=== PATIENT | female | born 1950 | race Two or more races ===

== ENCOUNTER 2018-06-09 01:31 | Inpatient (IN) | payer MEDICAID, OTHER ==
[~2018-06-09] VITALS: Ht 152.4 cm; Wt 61.5 kg
[~2018-06-09 01:31] MED LIST: CLOP75TA41 PO
[2018-06-09 02:06] LABS: Basophils # (auto) 0.1 uL; Basophils % (auto) 0.6 % (0.0-2.0); Eosinophils # (auto) 0.9 uL; Eosinophils % (auto) 10.2 % (0.0-7.0); Hematocrit 27.9 % (36.0-46.0); Hemoglobin 9.5 g/dL (12.2-16.2); Lymphocytes # (auto) 2.3 uL; Lymphocytes % (auto) 24.6 % (10.0-50.0); Mean Corpuscular Hemoglobin 33.4 pg (28.0-32.0); Mean Corpuscular Hgb Conc. 33.9 g/dL (32.0-36.0); Mean Corpuscular Volume 98.4 fL (80.0-100.0); Monocytes # (auto) 0.4 uL; Monocytes % (auto) 4.2 % (0.0-12.0); Neutrophils # (auto) 5.5 uL; Neutrophils % (auto) 60.4 % (37.0-80.0); Platelet Count (auto) 161 10^3/uL (140-450); Red Blood Cells 2.83 10^6/uL (4.0-5.20); White Blood Cell 9.2 10^3/uL (4.4-10.8)
[2018-06-09 02:17] LABS: INR 0.95 (0.9-1.15); Partial Thromboplastin Time 25.3 sec (23.78-33.04); Prothrombin Time 10.2 sec (9.27-12.13)
[2018-06-09 02:19] LABS: Albumin 3.2 g/dL (3.4-5.0); BUN/Creatinine Ratio 14.1; Calcium 6.8 mg/dL (8.5-10.1); Magnesium 2.3 mg/dL (1.6-2.6); Potassium 3.6 mmol/L (3.5-5.1)
[2018-06-09 02:24] LABS: Bilirubin, Total 0.3 mg/dL (0.2-1.0); Total Protein 7.1 g/dL (6.4-8.2)
[2018-06-09] MEDS ORDERED: FUROSEMIDE 20 MG/2 ML VIAL IV ONE (05:00)
[2018-06-09] MEDS ORDERED: MORPHINE SULFATE 4 MG/ML SYR/VIAL IV PRN (06:30)
[2018-06-09] MEDS ORDERED: ONDANSETRON HCL 4 MG/2 ML VIAL IV PRN (06:30)
[2018-06-09] MEDS ORDERED: DEXTROSE (50%) 50ML SYRG IV PRN (06:30)
[2018-06-09] MEDS: ACCU-CHEK COMFORT CURVE STRIP VI SCH ×4 (07:51→22:24)
[2018-06-09] MEDS: InsuLIN REG 1unit/0.01ml Soln (100units/ml) SC SCH ×4 (07:51→22:00)
[2018-06-09 07:57] LABS: Cholesterol 178 mg/dL (< 200); HDL Cholesterol 69 mg/dL (40-59); LDL Cholesterol 95 mg/dL (< 100); Triglycerides 80 mg/dL (< 150)
[2018-06-09 09:56] LABS: Urine Bacteria NONE SEEN /hpf (None Seen); Urine Blood 1+ /uL (Negative); Urine Specific Gravity 1.008 (1.001-1.035); Urine WBC 3 /hpf (0 - 5)
[2018-06-09] MEDS ORDERED: ENOXAPARIN SOD 40 MG/0.4 ML SYRINGE SC SCH (10:00)
[2018-06-09] MEDS ORDERED: METOPROLOL TARTRATE 25 MG TAB PO SCH (10:00)
[2018-06-09] MEDS: ASPirin-EC 81 mg tab PO SCH (10:05)
[2018-06-09] MEDS: FAMOTIDINE 20 MG TAB PO SCH (10:05)
[2018-06-09] MEDS: METOPROLOL SUCCINATE XL 50 MG TAB PO SCH (10:05)
[2018-06-09 12:45] LABS: Protein, Urine 68.5 mg/dL (0.0-11.9)
--- NOTE | 2018-06-09 14:14 | NUR ---
MS admit from ER MAXI RODRIGUEZ admitted to tele/MS. Patient oriented to EFRAIN CHOW, primary RN, unit, room, bed, and unit policies regarding patient care and visiting hours. Patient weighed by bedscale and encouraged to call if they need something. All questions and concerns addressed, patient verbalized understanding.
[2018-06-09 14:19] LABS: % Iron Saturation 22.2 % (15-50)
[2018-06-09] MEDS: SODIUM BICARBONATE 650 MG TAB PO SCH ×2 (15:06→22:24)
[2018-06-09] MEDS ORDERED: VALS1TAB58 PO (16:06)
[2018-06-09] MEDS ORDERED: HYDR12.56 PO (16:06)
[2018-06-09] MEDS ORDERED: CLOP75TA41 PO (16:06)
[2018-06-09] MEDS ORDERED: ATOR1TAB PO (16:06)
[2018-06-09] MEDS ORDERED: CAPT25TA5 PO (16:06)
[2018-06-09] MEDS ORDERED: AMLO5TAB13 PO (16:06)
[2018-06-09] MEDS ORDERED: BISO5TAB44 PO (16:09)
[2018-06-09 17:19] VITALS: BP 154/72
[2018-06-09] MEDS ORDERED: FUROSEMIDE 20 MG/2 ML VIAL IV SCH (18:00)
--- NOTE | 2018-06-09 19:09 | NUR ---
Opening Shift Note Assumed care of patient, awake and alert. No S/S of distress/SOB or pain. Family is at bedside helping to translate. Instructed on POC and to call for assist PRN, will continue to monitor for changes Q1hr and PRN.
--- NOTE | 2018-06-09 19:22 | NUR ---
Closing note Patient resting in bed, no signs of distress noted.
[2018-06-09 22:00] VITALS: BP 154/81
--- NOTE | 2018-06-09 22:17 | NUR ---
Hospitalist called back. New orders received for anxiety. Will carry out.
[2018-06-09] MEDS: ATORVASTATIN 20 MG TAB PO SCH (22:24)
[2018-06-09] MEDS ORDERED: LORazepam 0.5 MG TAB PO ONE (22:30)
[2018-06-10] VITALS (7 sets, daily range): BP systolic 140–159; BP diastolic 71–94
--- NOTE | 2018-06-10 05:48 | NUR ---
IV insertion IV access obtained, via clean sterile technique by inserting 20 gauge catheter at the side of the Left arm after 2 attempt(s). IV secured properly. No trauma to site. Patient tolerated well.
[2018-06-10] MEDS: SODIUM BICARBONATE 650 MG TAB PO SCH ×3 (06:10→21:44)
[2018-06-10] MEDS: ACCU-CHEK COMFORT CURVE STRIP VI SCH ×4 (06:47→21:44)
[2018-06-10] MEDS: InsuLIN REG 1unit/0.01ml Soln (100units/ml) SC SCH ×4 (06:47→21:45)
[2018-06-10 06:52] LABS: Basophils # (auto) 0.1 uL; Basophils % (auto) 0.7 % (0.0-2.0); Eosinophils # (auto) 0.9 uL; Eosinophils % (auto) 9.7 % (0.0-7.0); Hematocrit 26.7 % (36.0-46.0); Hemoglobin 9.1 g/dL (12.2-16.2); Lymphocytes # (auto) 1.9 uL; Lymphocytes % (auto) 20.8 % (10.0-50.0); Mean Corpuscular Hemoglobin 33.2 pg (28.0-32.0); Mean Corpuscular Volume 97.6 fL (80.0-100.0); Monocytes # (auto) 0.5 uL; Monocytes % (auto) 5.5 % (0.0-12.0); Neutrophils # (auto) 5.7 uL; Neutrophils % (auto) 63.3 % (37.0-80.0); Platelet Count (auto) 138 10^3/uL (140-450); Red Blood Cells 2.74 10^6/uL (4.0-5.20); Red Cell Distribution Width 13.8 % (11.8-14.3); White Blood Cell 9.1 10^3/uL (4.4-10.8)
--- NOTE | 2018-06-10 06:56 | NUR ---
Closing note Patient is resting in bed. No S/S of distress, pain, or SOB. Will endorse care to dayshift RN.
[2018-06-10 07:11] LABS: BUN/Creatinine Ratio 14.5; Calcium 7.6 mg/dL (8.5-10.1); Potassium 3.8 mmol/L (3.5-5.1)
[2018-06-10] MEDS ORDERED: ADENOSINE 42 MG in GIVE UN-DILUTED 0 ML IV STA (08:29)
[2018-06-10 09:19] LABS: Free T4 (Free Thyroxine) 1.07 ng/dL (0.89-1.76); T3 Total 0.52 ng/mL (0.60-1.81)
[2018-06-10] MEDS: FAMOTIDINE 20 MG TAB PO SCH (11:04)
[2018-06-10] MEDS: METOPROLOL SUCCINATE XL 50 MG TAB PO SCH (11:05)
[2018-06-10] MEDS: CLOPIDOGREL BISULFATE 75 MG TAB PO SCH (11:05)
[2018-06-10] MEDS: ASPirin-EC 81 mg tab PO SCH (11:05)
[2018-06-10] MEDS: FUROSEMIDE 20 MG/2 ML VIAL IV SCH (11:05)
[2018-06-10] MEDS: ENOXAPARIN SOD 30 MG/0.3 ML SYRINGE SC SCH (11:06)
[2018-06-10] MEDS: CALCIUM ACETATE 667 MG CAP PO SCH ×2 (12:00→19:03)
[2018-06-10] MEDS: LORazepam 0.5 MG TAB PO PRN (19:03)
--- NOTE | 2018-06-10 19:10 | NUR ---
OPEN SHIFT NOTE PATIENT IS ALERT AND ORIENTED X4, 2L NASAL CANNULA ALSO WORN AT BASELINE. NO COMPLAINTS OF PAIN AT THIS TIME. POC WAS DISCUSSED AND QUESTIONS ANSWERED. BED IS LOCKED IN LOWEST POSITION WITH SIDE RAILS UP X2. CALL LIGHT IS WITHIN REACH. WILL CONTINUE TO ROUND Q1HR AND PRN.
[2018-06-10] MEDS: ATORVASTATIN 20 MG TAB PO SCH (21:44)
[2018-06-11] VITALS (7 sets, daily range): BP systolic 134–151; BP diastolic 64–76
[2018-06-11] MEDS: SODIUM BICARBONATE 650 MG TAB PO SCH ×3 (06:13→22:25)
[2018-06-11] MEDS: ACCU-CHEK COMFORT CURVE STRIP VI SCH ×4 (06:14→22:26)
[2018-06-11] MEDS: InsuLIN REG 1unit/0.01ml Soln (100units/ml) SC SCH ×4 (06:14→22:00)
[2018-06-11 07:14] LABS: Basophils # (auto) 0 uL; Basophils % (auto) 0.8 % (0.0-2.0); Eosinophils # (auto) 0.1 uL; Hematocrit 34.1 % (36.0-46.0); Lymphocytes # (auto) 1.1 uL; Mean Corpuscular Hemoglobin 25.6 pg (28.0-32.0); Monocytes # (auto) 0.6 uL; Neutrophils # (auto) 3.2 uL
[2018-06-11 07:18] LABS: Eosinophils % (auto) 1.7 % (0.0-7.0); Hemoglobin 10.3 g/dL (12.2-16.2); Lymphocytes % (auto) 21.7 % (10.0-50.0); Mean Corpuscular Hgb Conc. 30.3 g/dL (32.0-36.0); Mean Corpuscular Volume 84.4 fL (80.0-100.0); Monocytes % (auto) 12.1 % (0.0-12.0); Neutrophils % (auto) 63.7 % (37.0-80.0); Nucleated Red Blood Cells % 0.4 %; Platelet Count (auto) 131 10^3/uL (140-450); Red Blood Cells 4.03 10^6/uL (4.0-5.20)
[2018-06-11 07:40] LABS: BUN/Creatinine Ratio 22.7; Calcium 8.5 mg/dL (8.5-10.1); Phosphorus 3.9 mg/dL (2.5-4.90)
[2018-06-11] MEDS: ENOXAPARIN SOD 30 MG/0.3 ML SYRINGE SC SCH (08:39)
[2018-06-11] MEDS: FUROSEMIDE 20 MG/2 ML VIAL IV SCH (08:39)
[2018-06-11] MEDS: ASPirin-EC 81 mg tab PO SCH (08:39)
[2018-06-11] MEDS: CLOPIDOGREL BISULFATE 75 MG TAB PO SCH (08:40)
[2018-06-11] MEDS: METOPROLOL SUCCINATE XL 50 MG TAB PO SCH (08:40)
[2018-06-11] MEDS: CALCIUM ACETATE 667 MG CAP PO SCH ×3 (08:40→18:54)
[2018-06-11] MEDS: FAMOTIDINE 20 MG TAB PO SCH (08:40)
[2018-06-11] MEDS ORDERED: ACETYLCYSTEINE ORAL for CIN 20%(200MG/ML) 4ML PO ONE (11:45)
--- NOTE | 2018-06-11 19:15 | NUR ---
OPEN SHIFT NOTE PATIENT IS ALERT AND ORIENTED X4, 2L NASAL CANNULA ALSO WORN AT BASELINE. 20 GAUGE IN THE LEFT AC IS INTACT AND PATENT, 20 GAUGE IN THE LEFT WRIST IS INTACT AND PATENT. NO COMPLAINTS OF PAIN AT THIS TIME. POC WAS DISCUSSED AND QUESTIONS ANSWERED. BED IS LOCKED IN LOWEST POSITION WITH SIDE RAILS UP X2. CALL LIGHT IS WITHIN REACH. WILL CONTINUE TO ROUND Q1HR AND PRN.
[2018-06-11] MEDS: LORazepam 0.5 MG TAB PO PRN (21:03)
[2018-06-11] MEDS: ACETYLCYSTEINE ORAL for CIN 20%(200MG/ML) 4ML PO SCH (22:26)
[2018-06-11] MEDS: ATORVASTATIN 20 MG TAB PO SCH (22:26)
[2018-06-12 05:00] VITALS: BP 148/83
[2018-06-12] MEDS: SODIUM BICARBONATE 650 MG TAB PO SCH ×3 (06:00→22:32)
[2018-06-12] MEDS: ACCU-CHEK COMFORT CURVE STRIP VI SCH ×4 (06:10→22:13)
[2018-06-12] MEDS: InsuLIN REG 1unit/0.01ml Soln (100units/ml) SC SCH ×4 (06:29→22:13)
[2018-06-12 06:55] LABS: Basophils # (auto) 0.1 uL; Basophils % (auto) 0.9 % (0.0-2.0); Eosinophils # (auto) 0.8 uL; Eosinophils % (auto) 13.3 % (0.0-7.0); Hematocrit 27.6 % (36.0-46.0); Hemoglobin 9.4 g/dL (12.2-16.2); Lymphocytes # (auto) 1.2 uL; Lymphocytes % (auto) 20.6 % (10.0-50.0); Mean Corpuscular Hemoglobin 33.1 pg (28.0-32.0); Mean Corpuscular Hgb Conc. 33.9 g/dL (32.0-36.0); Mean Corpuscular Volume 97.8 fL (80.0-100.0); Monocytes # (auto) 0.5 uL; Monocytes % (auto) 7.6 % (0.0-12.0); Neutrophils # (auto) 3.5 uL; Neutrophils % (auto) 57.6 % (37.0-80.0); Platelet Count (auto) 123 10^3/uL (140-450); Red Blood Cells 2.83 10^6/uL (4.0-5.20); Red Cell Distribution Width 13.9 % (11.8-14.3)
[2018-06-12 07:07] LABS: BUN/Creatinine Ratio 13.5; Potassium 3.8 mmol/L (3.5-5.1)
--- NOTE | 2018-06-12 07:40 | NUR ---
OPENING NOTE ASSUMED CARE OF PATIENT. PT IS LAYING ON BED, AWAKE. HOB LOW-FOWLERS. A&O X4. ON 2 LPM/NC. NO SIGNS OF SOB/DISTRESS NOTED. TELE #40, HR 61. SAFETY PRECAUTIONS IN PLACE INCLUDING, BED SET TO LOWEST POSITION/LOCKED. BED SIDE RAILS UP X2. CALL LIGHT WITHIN REACH INSTRUCTED PT TO CALL FOR ASSISTANCE. DISCUSSED POC WITH PT. PT VERBALIZED UNDERSTANDING. WILL CONTINUE TO MONITOR Q 1HR AND PRN.
[2018-06-12] MEDS: CALCIUM ACETATE 667 MG CAP PO SCH ×3 (07:49→17:51)
[2018-06-12 09:00] VITALS: BP 150/74
[2018-06-12] MEDS: ENOXAPARIN SOD 30 MG/0.3 ML SYRINGE SC SCH (10:00)
[2018-06-12] MEDS: METOPROLOL SUCCINATE XL 50 MG TAB PO SCH (10:00)
[2018-06-12] MEDS: FUROSEMIDE 20 MG/2 ML VIAL IV SCH (10:00)
[2018-06-12] MEDS: ASPirin-EC 81 mg tab PO SCH (11:37)
[2018-06-12] MEDS: FAMOTIDINE 20 MG TAB PO SCH (11:37)
[2018-06-12] MEDS: CLOPIDOGREL BISULFATE 75 MG TAB PO SCH (11:37)
[2018-06-12] MEDS: ACETYLCYSTEINE ORAL for CIN 20%(200MG/ML) 4ML PO SCH ×2 (11:38→22:12)
[2018-06-12 12:00] VITALS: BP 152/75
--- NOTE | 2018-06-12 12:30 | NUR ---
PATIENT OFF UNIT VIA BED TO CEO & BOARD DIRECTOR.
--- NOTE | 2018-06-12 12:32 | NUR ---
Nutrition Assessment Notes Please see attached link for complete assessment Est. Needs BW [id number] kcal (25-30 kcal/kgBW), 39-49 gms pro (0.8-1.0 gms/kgBW r/t elev RFT CKD). Will continue to monitor pertinent labs and reassess nutrient needs prn. Addendum: 06/12/18 at [address] Amended: Links added.
[2018-06-12] MEDS ORDERED: LIDOCAINE 2%HCL (LOCAL ANESTH.) INJ 20ML MDV ONE (13:18)
[2018-06-12] MEDS ORDERED: IOHEXOL 350 MG/ML 100ML IJ ONE (13:18)
--- NOTE | 2018-06-12 15:54 | NUR ---
SPOKE TO PITO ROSARIO. SHE STATES IT IS OK TO TAKE PT FOR NEPRHROSTOMY TUBE ON SUNDAY AM DUE TO DIRECTOR MARKET INTELLIGENCE AVAILABILITY. ALSO SPOKE WITH PRIMARY RN CLINTON.
[2018-06-12 16:36] LABS: INR 0.98 (0.9-1.15); Prothrombin Time 10.5 sec (9.27-12.13)
[2018-06-12 17:00] VITALS: BP 154/82
--- NOTE | 2018-06-12 17:04 | NUR ---
Bejarano catheter insertion Patient assessed and determined to be in need of bejarano catheter. Order obtained from MD. Patient educated on catheter and reason for insertion. All questions answered. Bejarano catheter 16 guage Kazakh inserted with clean sterile technique, draining clear pale yellow urine. Patient tolerated well.
--- NOTE | 2018-06-12 19:13 | NUR ---
Pt is an alert and oriented female visiting her family. Pt is from [place] and has been under medical care for her diabletes there. Pt has a daughter and other family members in the area. [employer] loss control consultant , assisting pt/family with emergency medical for stay. Will reassess pt closer to discharge for assistance with followup and medication. Addendum: 06/19/18 at 1915 by ALICE RAMOS Amended: Links added.
--- NOTE | 2018-06-12 19:57 | NUR ---
ENDORSED CARE TO DAVID Putnam RN.
--- NOTE | 2018-06-12 20:15 | NUR ---
Opening Shift Note: A&Ox4, resting in bed. Cameroonian speaking only; currently on 3LO2 via NC, patient states she wears O2 at home but does not know how much PRN; pain 0/10; baseline: ambulates independently without assistive devices; currently SBA without assistive devices. Bed locked in lowest position, side rails up x2, call light within reach, and bed alarm on for patient safety. Skin intact. IV 20 g in left AC IID inserted on 06/09/18 and IV 20 g in left wrist IID inserted on 06/11/18. Verdugo inserted on 06/12/18 per urology for hydronephrosis and strict i/o. POC discussed and questions answered. Patient will be NPO at 0000 for possible LHC with Dr. Huffman. Will continue to round prn.
[2018-06-12 22:00] VITALS: BP 159/81
[2018-06-12] MEDS: ATORVASTATIN 20 MG TAB PO SCH (22:12)
[2018-06-12] MEDS: LORazepam 0.5 MG TAB PO PRN (22:33)
--- NOTE | 2018-06-13 | NUR ---
REGINEO for possible LHC with Dr. Huffman.
--- NOTE | 2018-06-13 00:40 | NUR ---
Consents signed for LHC with Dr. Huffman.
[2018-06-13 05:00] VITALS: BP 154/84
--- NOTE | 2018-06-13 05:10 | NUR ---
WIPED DOWN PATIENT WITH CHB WIPES PER PROTOCOL. ALL LINENS WERE SWAPPED OUT WELL.
[2018-06-13] MEDS: SODIUM BICARBONATE 650 MG TAB PO SCH ×3 (05:57→22:08)
[2018-06-13] MEDS: InsuLIN REG 1unit/0.01ml Soln (100units/ml) SC SCH ×4 (05:57→22:09)
[2018-06-13] MEDS: ACCU-CHEK COMFORT CURVE STRIP VI SCH ×4 (05:58→22:09)
--- NOTE | 2018-06-13 06:00 | NUR ---
HELD PATIENT'S INSULIN OF 2 UNITS WITH BLOOD SUGAR OF 147 SINCE SHE HAS NPO STATUS. HELD HER BICARB PO PILL WELL.
[2018-06-13 06:57] LABS: Basophils # (auto) 0 uL; Basophils % (auto) 0.6 % (0.0-2.0); Eosinophils # (auto) 0.8 uL; Eosinophils % (auto) 12.8 % (0.0-7.0); Hematocrit 26.1 % (36.0-46.0); Lymphocytes # (auto) 1.6 uL; Lymphocytes % (auto) 25.7 % (10.0-50.0); Mean Corpuscular Hemoglobin 33.6 pg (28.0-32.0); Mean Corpuscular Hgb Conc. 34.7 g/dL (32.0-36.0); Mean Corpuscular Volume 96.8 fL (80.0-100.0); Monocytes # (auto) 0.5 uL; Monocytes % (auto) 8.2 % (0.0-12.0); Neutrophils # (auto) 3.3 uL; Neutrophils % (auto) 52.7 % (37.0-80.0); Platelet Count (auto) 109 10^3/uL (140-450); Red Blood Cells 2.69 10^6/uL (4.0-5.20); Red Cell Distribution Width 13.6 % (11.8-14.3); White Blood Cell 6.2 10^3/uL (4.4-10.8)
[2018-06-13 07:12] LABS: BUN/Creatinine Ratio 14.2; Calcium 7.7 mg/dL (8.5-10.1); Potassium 3.7 mmol/L (3.5-5.1)
--- NOTE | 2018-06-13 07:15 | NUR ---
OPENING NOTE ASSUMED CARE OF PATIENT. PT IS LAYING ON BED, AWAKE. HOB LOW-FOWLERS. A&O X4. ON 2 LPM/NC, O2 SATURATION 100%. NO SIGNS OF SOB/DISTRESS NOTED. TELE #40, HR 76. SAFETY PRECAUTIONS IN PLACE INCLUDING, BED SET TO LOWEST POSITION/LOCKED. BED SIDE RAILS UP X2. CALL LIGHT WITHIN REACH INSTRUCTED PT TO CALL FOR ASSISTANCE. DISCUSSED POC WITH PT. PT VERBALIZED UNDERSTANDING. WILL CONTINUE TO MONITOR Q 1HR AND PRN.
[2018-06-13] MEDS: CALCIUM ACETATE 667 MG CAP PO SCH ×3 (08:51→17:45)
[2018-06-13 09:02] VITALS: BP 160/82
[2018-06-13] MEDS: ENOXAPARIN SOD 30 MG/0.3 ML SYRINGE SC SCH (10:54)
[2018-06-13] MEDS: FUROSEMIDE 20 MG/2 ML VIAL IV SCH (10:54)
[2018-06-13] MEDS: METOPROLOL SUCCINATE XL 50 MG TAB PO SCH (10:55)
[2018-06-13] MEDS: FAMOTIDINE 20 MG TAB PO SCH (10:55)
[2018-06-13] MEDS: ASPirin-EC 81 mg tab PO SCH (10:55)
[2018-06-13] MEDS: CLOPIDOGREL BISULFATE 75 MG TAB PO SCH (10:55)
[2018-06-13 13:00] VITALS: BP 152/81
[2018-06-13 17:13] VITALS: BP 163/80
[2018-06-13] MEDS: cloNIDine HCL 0.1 MG TAB PO PRN (18:47)
--- NOTE | 2018-06-13 19:38 | NUR ---
ENDORSED CARE TO JILLIAN SCRUGGS.
--- NOTE | 2018-06-13 19:50 | NUR ---
Opening Shift Note Assumed care of patient, awake and alert. No S/S of distress/SOB or pain. Instructed on POC and to call for assist PRN. Bed in lowest locked position, call light within reach, side rails up x2, fall precautions in place. Will continue to monitor for changes Q1hr and PRN.
[2018-06-13 22:00] VITALS: BP 146/76
[2018-06-13] MEDS: ATORVASTATIN 20 MG TAB PO SCH (22:09)
[2018-06-14 05:00] VITALS: BP 150/71
[2018-06-14] MEDS: SODIUM BICARBONATE 650 MG TAB PO SCH ×3 (06:42→21:38)
[2018-06-14] MEDS: InsuLIN REG 1unit/0.01ml Soln (100units/ml) SC SCH ×4 (06:42→21:38)
[2018-06-14] MEDS: ACCU-CHEK COMFORT CURVE STRIP VI SCH ×4 (06:42→21:38)
--- NOTE | 2018-06-14 07:15 | NUR ---
OPENING NOTE ASSUMED CARE OF PATIENT. PT IS LAYING ON BED, AWAKE. HOB LOW-FOWLERS. A&O X4. ON 2 LPM/NC, O2 SATURATION 99%. NO SIGNS OF SOB/DISTRESS NOTED. TELE #40, HR 67. GIL CATH INTACT, PATENT AND DRAINING STRAW YELLOW URINE TO GRAVITY. SAFETY PRECAUTIONS IN PLACE INCLUDING, BED SET TO LOWEST POSITION/LOCKED. BED SIDE RAILS UP X2. CALL LIGHT WITHIN REACH INSTRUCTED PT TO CALL FOR ASSISTANCE. DISCUSSED POC WITH PT. PT VERBALIZED UNDERSTANDING. WILL CONTINUE TO MONITOR Q 1HR AND PRN.
[2018-06-14] MEDS: CALCIUM ACETATE 667 MG CAP PO SCH ×3 (08:00→17:22)
[2018-06-14] MEDS ORDERED: LIDOCAINE 2%HCL (LOCAL ANESTH.) INJ 20ML MDV ONE (08:33)
[2018-06-14] MEDS ORDERED: IOHEXOL 350 MG/ML 100ML IJ ONE (08:33)
--- NOTE | 2018-06-14 08:41 | NUR ---
PATIENT OFF UNIT VIA BED TO [employer].
[2018-06-14 09:00] VITALS: BP 143/69
[2018-06-14] MEDS ORDERED: fentaNYL CITRATE 100 MCG/2 ML VL ONE (09:02)
[2018-06-14] MEDS ORDERED: MIDAZOLAM HCL 1MG/1ML-2 ML VIAL ONE (09:03)
[2018-06-14] MEDS ORDERED: cefTRIAXone 1GM/50ML D5W 50 ML IV ONE ×2 (09:29→09:45)
[2018-06-14] MEDS: ENOXAPARIN SOD 30 MG/0.3 ML SYRINGE SC SCH (10:00)
[2018-06-14] MEDS: CLOPIDOGREL BISULFATE 75 MG TAB PO SCH (10:00)
--- NOTE | 2018-06-14 10:24 | NUR ---
PATIENT BACK ON UNIT VIA BED FROM PART TIME. PT IS STABLE, ALERT AND ORIENTED. NO SIGNS OF SOB/DISTRESS. DRESSING TO LEFT FLANK CLEAN, DRY AND INTACT. NEPHROSTOMY TUBE DRAINING PINKISH URINE. WILL CONTINUE TO MONITOR.
[2018-06-14] MEDS: FAMOTIDINE 20 MG TAB PO SCH (10:42)
[2018-06-14] MEDS: FUROSEMIDE 20 MG/2 ML VIAL IV SCH (10:42)
[2018-06-14] MEDS: ASPirin-EC 81 mg tab PO SCH (10:42)
[2018-06-14] MEDS: METOPROLOL SUCCINATE XL 50 MG TAB PO SCH (10:43)
[2018-06-14] MEDS: ACETAMINOPHEN 500 MG TAB PO PRN (11:15)
[2018-06-14 13:00] VITALS: BP 121/71
[2018-06-14] MEDS ORDERED: HYDROcodone-ACET 5/325MG TAB PO PRN (13:30)
[2018-06-14 17:00] VITALS: BP 119/70
--- NOTE | 2018-06-14 18:45 | NUR ---
NEPHROSTOMY TUBE: OUTPUT OF 20 ML OF HEMATURIA
--- NOTE | 2018-06-14 19:08 | NUR ---
ENDORSED CARE TO JILLIAN SCRUGGS.
[2018-06-14] MEDS: ATORVASTATIN 20 MG TAB PO SCH (21:38)
[2018-06-14 22:00] VITALS: BP 113/70
--- NOTE | 2018-06-15 05:00 | NUR ---
150 ml output from nephrostomy tube.
[2018-06-15 05:41] VITALS: BP 129/68
[2018-06-15] MEDS: SODIUM BICARBONATE 650 MG TAB PO SCH ×3 (06:13→22:30)
[2018-06-15] MEDS: ACCU-CHEK COMFORT CURVE STRIP VI SCH ×4 (06:13→22:31)
[2018-06-15] MEDS: InsuLIN REG 1unit/0.01ml Soln (100units/ml) SC SCH ×4 (06:14→22:00)
[2018-06-15 06:41] LABS: Calcium 7.8 mg/dL (8.5-10.1)
--- NOTE | 2018-06-15 07:50 | NUR ---
Opening Shift Note Assumed care of patient, awake and alert. No S/S of distress/SOB or pain. Bed at lowest position and call light within reach. Instructed on POC and to call for assist PRN, will continue to monitor for changes Q1hr and PRN.
[2018-06-15 08:00] VITALS: BP 138/70
[2018-06-15 09:00] VITALS: BP 138/70
[2018-06-15] MEDS: CLOPIDOGREL BISULFATE 75 MG TAB PO SCH (09:48)
[2018-06-15] MEDS: ENOXAPARIN SOD 30 MG/0.3 ML SYRINGE SC SCH (09:48)
[2018-06-15] MEDS: FAMOTIDINE 20 MG TAB PO SCH (09:49)
[2018-06-15] MEDS: ASPirin-EC 81 mg tab PO SCH (09:49)
[2018-06-15] MEDS: CALCIUM ACETATE 667 MG CAP PO SCH ×3 (09:49→17:27)
[2018-06-15] MEDS: ACETAMINOPHEN 500 MG TAB PO PRN (09:49)
[2018-06-15] MEDS: METOPROLOL SUCCINATE XL 50 MG TAB PO SCH (09:50)
[2018-06-15] MEDS: FUROSEMIDE 20 MG/2 ML VIAL IV SCH (09:51)
[2018-06-15] MEDS: SODIUM CHLORIDE 0.9% 1,000 ML IV SCH ×2 (12:45→23:31)
[2018-06-15 12:58] VITALS: BP 118/65
--- NOTE | 2018-06-15 13:09 | NUR ---
ASSOCIATE FINANCIAL REPRESENTATIVE DR. Arline MCGILL
[2018-06-15] MEDS: LORazepam 0.5 MG TAB PO PRN (16:35)
[2018-06-15 17:00] VITALS: BP 127/64
--- NOTE | 2018-06-15 18:36 | NUR ---
End of shift note: Patient is comfortably sitting up in bed. On 2L NC, no s/s of distress noted/stated. Bed at lowest position and call light within reach. Family at bedside. Will endorse care to NOC RN.
[2018-06-15 22:00] VITALS: BP 142/75
[2018-06-15] MEDS: ATORVASTATIN 20 MG TAB PO SCH (22:30)
[2018-06-15] MEDS: MORPHINE SULFATE 4 MG/ML SYR/VIAL IV PRN (23:26)
[2018-06-16] VITALS (17 sets, daily range): BP systolic 114–181; BP diastolic 61–117
[2018-06-16] MEDS: NITROGLYCERIN 0.4 MG SL TAB SL PRN ×2 (03:19→11:29)
[2018-06-16] MEDS: SODIUM BICARBONATE 650 MG TAB PO SCH ×3 (06:20→23:42)
[2018-06-16] MEDS: ACCU-CHEK COMFORT CURVE STRIP VI SCH ×4 (06:20→23:51)
[2018-06-16] MEDS: InsuLIN REG 1unit/0.01ml Soln (100units/ml) SC SCH ×4 (06:20→23:55)
[2018-06-16 06:53] LABS: Lymphocytes # (auto) 1.6 uL; Monocytes # (auto) 0.5 uL; Monocytes % (auto) 7.8 % (0.0-12.0); Neutrophils # (auto) 3.9 uL; White Blood Cell 6.8 10^3/uL (4.4-10.8)
[2018-06-16 07:03] LABS: BUN/Creatinine Ratio 11.1; Basophils # (auto) 0.1 uL; Basophils % (auto) 0.7 % (0.0-2.0); Calcium 7.2 mg/dL (8.5-10.1); Eosinophils # (auto) 0.7 uL; Hematocrit 15.5 % (36.0-46.0); Lymphocytes % (auto) 23.2 % (10.0-50.0); Mean Corpuscular Hemoglobin 33.9 pg (28.0-32.0); Mean Corpuscular Hgb Conc. 35.1 g/dL (32.0-36.0); Mean Corpuscular Volume 96.7 fL (80.0-100.0); Neutrophils % (auto) 57.3 % (37.0-80.0); Platelet Count (auto) 84 10^3/uL (140-450); Potassium 3.7 mmol/L (3.5-5.1); Red Cell Distribution Width 13.8 % (11.8-14.3)
[2018-06-16 07:07] LABS: Hemoglobin 5.4 g/dL (12.2-16.2)
--- NOTE | 2018-06-16 07:15 | NUR ---
CRITICAL LAB VALUE PATIENT HAS Hgb OF 5.4. WILL NOTIFY
--- NOTE | 2018-06-16 07:40 | NUR ---
Opening Shift Note Assumed care of patient, sleeping in bed c/o fatigue and dizziness. No S/S SOB or pain. Patient is alert and oriented x4, advised patient to stay in bed and ask for assistance when out of bed. Bed at lowest position and call light within reach. Will continue to monitor. Instructed on POC and to call for assist PRN, will continue to monitor for changes Q1hr and PRN.
[2018-06-16] MEDS: CALCIUM ACETATE 667 MG CAP PO SCH ×3 (08:00→18:00)
[2018-06-16] MEDS: ASPirin-EC 81 mg tab PO SCH (10:00)
[2018-06-16] MEDS: ENOXAPARIN SOD 30 MG/0.3 ML SYRINGE SC SCH (10:00)
[2018-06-16] MEDS: FUROSEMIDE 20 MG/2 ML VIAL IV SCH (10:00)
[2018-06-16] MEDS: CLOPIDOGREL BISULFATE 75 MG TAB PO SCH (10:00)
--- NOTE | 2018-06-16 10:45 | NUR ---
ERROR IN WRISTBAND BB NUMBER PATIENTS WRIST BAND NUMBER IS [id number] BLOOD RECEIVED WRIST BAND NUMBER IS [id number] CALLED AND SPOKE TO TIKI FROM BLOOD BANK TIKI STATES SHE WILL ASK HER BB LEGAL SUMMER INTERN IF THEIR WR# CAN BE EDITED. ERROR MIGHT HAVE OCCURRED DURING SECOND TYPE AND SCREEN. WILL AWAIT TIKI CALL BACK CHARGE Jerry MADE AWARE OF SITUATION
--- NOTE | 2018-06-16 10:49 | NUR ---
BLOOD RETURNED CHARGE Jerry BULLOCK SAYS BLOOD MUST BE RETURNED DUE TO WRISTBAND # ERROR BLOOD RETURNED TO BLOOD BANK
[2018-06-16] MEDS: FAMOTIDINE 20 MG TAB PO SCH (11:27)
[2018-06-16] MEDS: METOPROLOL SUCCINATE XL 50 MG TAB PO SCH (11:28)
--- NOTE | 2018-06-16 12:33 | NUR ---
Nutrition Follow-up Notes Wt.: 57.4 kg as of yesterday. Pt's on oxygen via nasal cannula, asleep, no immediate family member at bedside when rounded this morning. Pt's no signs of distress noted earlier, currently on Consistent Carb Std.: 60 gms/meal, Renal Specific: 60 gms pro, 2 gms Na, Cardiac diet with adequate PO intake aeb 100% ave. consumed meals (x7) in last 3 days. Est. Needs BW [id number] kcal (25-30 kcal/kgBW), 39-49 gms pro (0.8-1.0 gms/kgBW r/t elev RFT CKD). Will continue to monitor pertinent labs and reassess nutrient needs prn. Labs: Gluc 147 H, BUN 60 H, Cr 5.42 H, Ca 7.2 L; Alb 2.7 L Skin: Didier scale 21, low risk, skin intact per pie dough roller. GI: Pt had 1 BM 06/13/18 per pie dough roller. PES: Altered nutrition related lab values r/t current/chronic medical condition aeb elev RFT, mild hypoalb, hyperglycemia, hypocalcemia Will continue to monitor PO intake, skin status, pertinent labs and weight trend. F/u in 3 to 5 days. Rec.: 1.) Continue close supervision during meals. 2.) Refer pt to CDE/RD for further nutrition education and weight monitoring upon discharge. 3.) Continue current plan of care.
--- NOTE | 2018-06-16 12:36 | NUR ---
SUPPLIER QUALITY ENGINEERING MANAGER DR. Amanda MCGILL
--- NOTE | 2018-06-16 14:10 | NUR ---
Patient c/o chest pain 11/16, administered Nitroglycerin SL and completed an EKG. EKG resulted abnormal, signed off by MD on floor. Informed DR. Vincent. Patient on 4L NC , HOB is elevated. Bed at lowest position and call light within reach. Will continue to monitor.
--- NOTE | 2018-06-16 14:55 | NUR ---
Began administering blood . Patient VS are T. 98.4, BP. 118/64, O2. 100%, RR. 20. Will continue to monitor.
--- NOTE | 2018-06-16 15:00 | NUR ---
IV removal Left wrist Iv leaking, IV DC'd with clean sterile technique, catheter fully intact. Pressure dressing applied to site. Patient tolerated well.
[2018-06-16] MEDS: SODIUM CHLORIDE 0.9% 1,000 ML IV SCH ×2 (15:42→18:45)
--- NOTE | 2018-06-16 16:04 | NUR ---
IV removal Left AC IV leaking, IV DC'd with clean sterile technique, catheter fully intact. Pressure dressing applied to site. Patient tolerated well.
--- NOTE | 2018-06-16 16:12 | NUR ---
IV insertion IV access obtained by JILLIAN Light, via clean sterile technique by inserting 22 gauge catheter at Right forearm after 1 attempt. IV secured properly. No trauma to site. Patient tolerated well.
[2018-06-16] MEDS: MORPHINE SULFATE 4 MG/ML SYR/VIAL IV PRN (17:38)
--- NOTE | 2018-06-16 17:38 | NUR ---
BLOOD TRANSFUSION ENDED. VS T. 98.2, PULSE 90, RR 22, O2, 93% BP 125/69.
--- NOTE | 2018-06-16 17:39 | NUR ---
Patient c/o chest pain 9/10 and difficulty breathing, breath sounds are clear and pulse ox is 96%. Will administer Morphine as prescribed by MD. Will obtain ekg stat.
--- NOTE | 2018-06-16 17:42 | NUR ---
OBTAINED EKG, RESULTS ABNORMAL PAGED DR. WAHL , ORDERED CHEST XRAY STAT ORDERS READ BACK AND VERIFIED. WILL CONTINUE TO MONITOR.
[2018-06-16] MEDS ORDERED: PANTOPRAZOLE 40 MG/10 ML VIAL IV ONE (18:30)
--- NOTE | 2018-06-16 19:12 | NUR ---
FIO2 DECREASED TO .80 ON BIPAP. SPO2 98%. NO DISTRESS NOTED. ULTRASOUND IS AT BEDSIDE.
--- NOTE | 2018-06-16 19:40 | NUR ---
Report given to ASSISTANT BANQUET MANAGERJILLIAN Villegas.
--- NOTE | 2018-06-16 20:20 | NUR ---
Received patient from floor Received from floor. Patient on BiPAP at 100% Fi02. Noted to be using accessory muscles, short of breath, hypertensive, and anxious. Pt. Able to talk and is primarily Yakut speaking. HOB elevated to high fowlers position. Attempting to calm patient and provide comfort. PIV x2 intact and patent with no s/s of infiltration or phlebitis noted. Refer to IV spreadsheet for infusion specifics. F/C intact and draining to gravity. No skin issues noted. Neurovascular status intact with palpable distal pulses, skin warm to touch. patient educated about how to use the call light. Bed in lowest position, side rails up, bed brakes set, bed alarm set, call light and side table are within reach.
[2018-06-16 20:49] LABS: Hematocrit 23.9 % (36.0-46.0); Hemoglobin 8.3 g/dL (12.2-16.2)
[2018-06-16 20:56] LABS: INR 0.93 (0.9-1.15)
--- NOTE | 2018-06-16 21:00 | NUR ---
Hospitalist paged paged hospitalist re: respiratory status. Waiting for call back.
--- NOTE | 2018-06-16 21:10 | NUR ---
Hospitalist declan Hospitalist has not returned page yet. Attempted to call hospitalist rogerio re: respiratory status with no success. Waiting for return page.
--- NOTE | 2018-06-16 21:15 | NUR ---
Hospitalist paged 2nd time paged hospitalist again re: respiratory status. Waiting for call back.
[2018-06-16] MEDS ORDERED: ETOMIDATE (2MG/ML) 20ML VIAL IV ONE (21:21)
[2018-06-16] MEDS ORDERED: ROCURONIUM 10MG/ML 10ML VIAL IV ONE (21:21)
[2018-06-16] MEDS ORDERED: SUCCINYLCHOLINE CHLORIDE 20 MG/ML 10ML VIAL IV ONE (21:22)
--- NOTE | 2018-06-16 21:25 | NUR ---
Hospitalist called back Informed hospitalist, REGINE Saucedo of current status of patient (ABG results, respiratory distress and hypertension). She ordered pulmonary consult and intubation. During phone call, rn occupational, Dr. Nicole, was at the nurses station. RN asked Dr. Nicole if he would consult on patient and intubate and he agreed. No additional orders received.
--- NOTE | 2018-06-16 21:30 | NUR ---
Dr. Nicole at bedside Dr. Nicole rounding on patient and preparing to intubate. Multiple RTs, primary RN, and scrap charger at bedside.
--- NOTE | 2018-06-16 21:47 | NUR ---
Intubation Dr. Nicole intubated patient without incident.
[2018-06-16] MEDS ORDERED: PROPOFOL 100 ML IV ONE (21:51)
[2018-06-16] MEDS ORDERED: fentaNYL Drip 2500mCg/250mlNS 250 ML IV ONE (21:51)
[2018-06-16] MEDS: fentaNYL Drip 2500mCg/250mlNS 250 ML IV SCH (21:52)
[2018-06-16] MEDS: PROPOFOL 100 ML IV SCH (21:52)
--- NOTE | 2018-06-16 23:30 | NUR ---
Nasogastric tube insertion Patient educated on need for NG tube. NGT inserted per MD order without incident. Placement verified by aspiration of stomach contents and auscultation.
[2018-06-16] MEDS: ATORVASTATIN 20 MG TAB PO SCH (23:42)
[2018-06-17] VITALS (100 sets, daily range): BP systolic 88–151; BP diastolic 7–95
[2018-06-17] MEDS ORDERED: ETOMIDATE (2MG/ML) 20ML VIAL IV ONE
[2018-06-17] MEDS ORDERED: SUCCINYLCHOLINE CHLORIDE 20 MG/ML 10ML VIAL IV ONE
[2018-06-17 01:26] LABS: Hemoglobin 8.6 g/dL (12.2-16.2)
[2018-06-17 04:34] LABS: Eosinophils # (auto) 0 uL; Hemoglobin 8.1 g/dL (12.2-16.2); Lymphocytes # (auto) 1.4 uL; Mean Corpuscular Volume 96.2 fL (80.0-100.0); Monocytes # (auto) 0.5 uL
[2018-06-17 04:36] LABS: Basophils # (auto) 0 uL; Basophils % (auto) 0.5 % (0.0-2.0); Eosinophils % (auto) 0.1 % (0.0-7.0); Hematocrit 23.1 % (36.0-46.0); Lymphocytes % (auto) 14.6 % (10.0-50.0); Mean Corpuscular Hemoglobin 33.7 pg (28.0-32.0); Neutrophils # (auto) 7.6 uL; Neutrophils % (auto) 79.8 % (37.0-80.0); Platelet Count (auto) 91 10^3/uL (140-450); Red Cell Distribution Width 14.3 % (11.8-14.3); White Blood Cell 9.5 10^3/uL (4.4-10.8)
[2018-06-17] MEDS: SODIUM CHLORIDE 0.9% 1,000 ML IV SCH (04:45)
[2018-06-17 04:49] LABS: Albumin 2.9 g/dL (3.4-5.0); Calcium 7.2 mg/dL (8.5-10.1); Potassium 4.5 mmol/L (3.5-5.1)
[2018-06-17 04:54] LABS: BUN/Creatinine Ratio 11.3; Bilirubin, Total 0.5 mg/dL (0.2-1.0); Total Protein 6.3 g/dL (6.4-8.2)
--- NOTE | 2018-06-17 06:08 | NUR ---
Respiratory note: RECEIVED PATIENT ON V3 V200 VENT ORALLY INTUBATED WITH AN 8.0 ETT SECURED VIA LILLIAM AT THE 24CM MARKING AT THE LIP, AND MECHANICALLY VENTILATED WITH THE CHARTED SETTINGS. SPO2 100%, LUNG SOUNDS CLEAR T/O, NO SECRETIONS WHEN SUCTIONED. SKIN IS WARM/DRY TO THE TOUCH AND IS INTACT NEAR LILLIAM SITE, THERE ARE NO SKIN INTEGRITY ISSUES TO NOTE AT THIS TIME. THERE IS A NGT IN THE RIGHT NARE AND SECURED TO THE ETT, NO EDEMA NOTED THROUGHOUT. AM CXR ASSESSED AND IT SHOWS ETT IN SATISFACTORY POSITION SITTING APPROX 3.8CM ABOVE THE PERCY, NO INDICATION TO ADJUST TUBE. PATIENT IS RESPONSIVE TO TACTILE STIMULI BUT DOES NOT RESPOND TO VERBAL STIMULI, AND IS SEDATED ON PROPOFOL AND FENTANYL DRIPS. SHE IS RESTING COMFORTABLY AND TOLERATING VENT WELL, FIO2 DECREASED TO 40%, JILLIAN PARMAR MADE AWARE OF CHANGE. VENT PLUGGED INTO RED OUTLET AND ALL ALARMS ARE SET AND AUDIBLE. WILL CONTINUE TO ASSESS PATIENT WELL VENTILATOR FUNCTION.
--- NOTE | 2018-06-17 06:20 | NUR ---
Respiratory note: VENT NOT PLUGGED INTO RED OUTLET; RED OUTLETS HAVING POWER ISSUES. RN AWARE, ENGINEERING AWARE, LISA AWARE. VENT PLUGGED INTO REGULAR NEUMANN POWER OUTLET UNTIL ENGINEERING CAN FIX OR PATIENT CAN BE MOVED TO DIFFERENT ROOM.
[2018-06-17] MEDS ORDERED: HEPARIN DRIP/D5W 100UNITS/ML 250 ML IV SCH ×2 (06:32→16:30)
[2018-06-17] MEDS: SODIUM BICARBONATE 650 MG TAB PO SCH ×3 (06:38→21:39)
[2018-06-17] MEDS ORDERED: HEPARIN SODIUM (PORCINE) 5000 UNITS/ML 1ML VIAL IV ONE (06:45)
[2018-06-17] MEDS: InsuLIN REG 1unit/0.01ml Soln (100units/ml) SC SCH ×4 (06:53→21:56)
[2018-06-17] MEDS: ACCU-CHEK COMFORT CURVE STRIP VI SCH ×4 (06:53→21:51)
--- NOTE | 2018-06-17 07:00 | NUR ---
Report from Nelly hernandez.
--- NOTE | 2018-06-17 07:00 | NUR ---
REPORT RECEIVED FROM FROM JILLIAN PARMAR.
--- NOTE | 2018-06-17 07:30 | NUR ---
Report received from JILLIAN Villegas.
--- NOTE | 2018-06-17 07:50 | NUR ---
CALL PLACED TO DR. Amanda MCGILL PER DR. MCGILL HE WANTS TO BE CALLED WITH TROPONIN VALUES. DR. MCGILL WAS MADE AWARE OF THE LAST TWO TROPONIN VALUES. HE WAS ALSO TOLD THAT I CONTACTED DR. ROSAS WITH TROP RESULTS AND ORDERS WERE GIVEN. HE WAS ALSO TOLD THAT PT. WAS INTUBATED YESTERDAY. PER DR. MCGILL, DR. MUHAMMAD WILL SEE THE PATIENT TODAY
[2018-06-17] MEDS: CALCIUM ACETATE 667 MG CAP PO SCH ×3 (08:00→18:00)
[2018-06-17] MEDS: PROPOFOL 100 ML IV SCH ×2 (09:56→14:24)
[2018-06-17] MEDS: METOPROLOL SUCCINATE XL 50 MG TAB PO SCH (10:00)
[2018-06-17] MEDS: FUROSEMIDE 20 MG/2 ML VIAL IV SCH (10:00)
[2018-06-17] MEDS: PANTOPRAZOLE 40 MG/10 ML VIAL IV SCH ×2 (10:00→21:41)
--- NOTE | 2018-06-17 10:30 | NUR ---
Dr. Tyson at bedside- wants a renal scan when patient extubated.
[2018-06-17] MEDS ORDERED: cefTRIAXone 1GM/50ML D5W 50 ML IV ONE (11:30)
[2018-06-17] MEDS ORDERED: BUMETANIDE (0.25 MG/ML) INJ 10ML IV ONE (11:30)
--- NOTE | 2018-06-17 11:45 | NUR ---
Respiratory note: PEEP DECREASED TO [address] CRUZ BEDSIDE ORDER. RN KIMI MITCHELL.
[2018-06-17] MEDS: LINEZOLID 600MG/300ML 300 ML IV SCH (13:00)
--- NOTE | 2018-06-17 13:30 | NUR ---
Zackery Keenan seen patient and the plan is for Lipotripsy when stable.
--- NOTE | 2018-06-17 13:39 | NUR ---
Respiratory note: CALLED TO ROOM OR DESAT TO 80'S POST CENTRAL LINE PLACEMENT. RN KIMI STATED PATIENT HAD VOMITED MULTIPLE TIMES BUT WAS SUCTIONED IMMEDIATELY. FIO2 INCREASED TO 100% AND SPO2 MAINTAINS AT 92%. LUNG SOUNDS REMAIN CLEAR, NO SECRETIONS WHEN SUCTIONED. WILL CONTINUE TO MONITOR PATIENT AND TITRATE FIO2 BACK DOWN INDICATED.
--- NOTE | 2018-06-17 13:50 | NUR ---
Dr. Huffman at bedside- go ahead with dialysis. Plan for future left heart cath after dialysis.
--- NOTE | 2018-06-17 13:57 | NUR ---
Pagechristina Tyson-per Dr. Huffman he wants dialysis started. Addendum: 06/17/18 at 1412 by Martine Harris RN per Dr. Tyson place dialysis catheter. consult Dr. Tavera.
--- NOTE | 2018-06-17 14:00 | NUR ---
Dr. Noel at bedside- new orders. Bedside procedure right thoracentesis-not enough fluids. Patient ordered for surgery for Exlap. -no tube feeding possible obstruction. Addendum: 06/17/18 at 2020 by Martine Harris RN Wrong note.
[2018-06-17] MEDS ORDERED: methylPREDNISolone SOD SUCC 125 MG/2 ML VL IV ONE (14:15)
[2018-06-17] MEDS ORDERED: methylPREDNISolone SOD SUCC 125 MG/2 ML VL ONE (14:15)
[2018-06-17] MEDS: fentaNYL Drip 2500mCg/250mlNS 250 ML IV SCH (14:24)
[2018-06-17 15:17] LABS: INR 1.01 (0.9-1.15); Partial Thromboplastin Time 41.4 sec (23.78-33.04); Prothrombin Time 10.8 sec (9.27-12.13)
--- NOTE | 2018-06-17 15:45 | NUR ---
Right IJ Michele catheter and Right IJ TL catheter placed by Dr. Tavera. Consents signed and patient tolerated procedures.
[2018-06-17] MEDS ORDERED: HEPARIN SODIUM (PORCINE) 5000 UNITS/ML 1ML VIAL ONE (16:10)
[2018-06-17] MEDS ORDERED: HEPARIN SODIUM (PORCINE) 5000 UNITS/ML 1ML VIAL SC ONE ×2 (16:15→16:30)
[2018-06-17] MEDS ORDERED: HEPARIN SODIUM (PORCINE) 5000 UNITS/ML 1ML VIAL XX ONE (16:30)
[2018-06-17] MEDS: methylPREDNISolone SOD SUCC 40 MG/ML VL IV SCH (18:00)
--- NOTE | 2018-06-17 18:30 | NUR ---
Dr Gama at bedside- ordered H&H, CXR and ABG in the morning.
--- NOTE | 2018-06-17 18:30 | NUR ---
Patient to OR -
[2018-06-17] MEDS ORDERED: ONDANSETRON HCL 4 MG/2 ML VIAL IV PRN (19:30)
--- NOTE | 2018-06-17 19:36 | NUR ---
Output- Verdugo = 100 Nephrostomy = 650
--- NOTE | 2018-06-17 19:40 | NUR ---
TEMPERATURE PATIENT TEMP 100.4 AT THIS TIME COOLING MEASURES IN PLACE BLANKETS/SHEETS REMOVED, FAN PLACED IN ROOM AND TURNED ON TO MED LEVEL THERMOSTAT DECREASED TO 67 DEGREES AT THIS TIME WILL CONTINUE TO MONITOR
--- NOTE | 2018-06-17 19:40 | NUR ---
INITIAL CONTACT ASSUMED CARE OF PATIENT PATIENT RECEIVED ON BED INTUBATED AND SEDATED ON FENTANYL AND PROPOFOL, SEE IV SPREAD SHEETS FOR TITRATIONS. PATIENT ALERT AND ORIENTED, TRACKS WITH EYES, NODS HEAD AND SQUEEZES WITH BOTH HANDS. NO S/S OF DISTRESS NOTED AT THIS TIME. VITAL SIGNS WITHIN NORMAL LIMITS. PATIENT DENIES PAIN AT THIS TIME. NOTED F/C IN PLACE AND DRAINING TO GRAVITY. 20 G IV LEFT AC APPEARS TO BE INFILTRATED. NEPHROSTOMY TUBE IN PLACE AND DRAINING TO GRAVITY. HOB AT 45 DEGREES FOR ASPIRATION PRECAUTIONS, VENTILATOR PLUGGED INTO RED OUTLET, AMBU BAG AT BEDSIDE. BED IN LOWEST LOCKED POSITION, SIDE RAILS UP X 2. PATIENT IN FULL VIEW OF NURSES STATION, SAFETY MAINTAINED, WILL CONTINUE TO MONITOR
--- NOTE | 2018-06-17 19:40 | NUR ---
FAMILY AT BEDSIDE PLAN OF CARE DISCUSSED WITH FAMILY ALL QUESTIONS AND CONCERNS WERE ANSWERED
--- NOTE | 2018-06-17 20:16 | NUR ---
Endorsed care to Nelly- patient in OR. Addendum: 06/17/18 at 2020 by Martine Harris RN wrong note.
--- NOTE | 2018-06-17 20:24 | NUR ---
Dr. Manzo at bedside- new orders- EKG, sputum, blood cultures, and echo. Solumedrol also ordered.
--- NOTE | 2018-06-17 20:26 | NUR ---
Endorsed care to JILLIAN Villegas.
[2018-06-17 21:15] LABS: Hemoglobin 7.1 g/dL (12.2-16.2)
[2018-06-17 21:16] LABS: Hematocrit 20.5 % (36.0-46.0)
[2018-06-17] MEDS: ATORVASTATIN 20 MG TAB PO SCH (21:39)
--- NOTE | 2018-06-17 22:42 | NUR ---
CRITICAL VALUE PTT 118.6 HEPARIN HELD FOR ONE HOUR PER PROTOCOL
[2018-06-18] VITALS (92 sets, daily range): BP systolic 98–145; BP diastolic 45–86
[2018-06-18] MEDS: LINEZOLID 600MG/300ML 300 ML IV SCH ×2 (02:15→13:00)
[2018-06-18] MEDS: methylPREDNISolone SOD SUCC 40 MG/ML VL IV SCH ×4 (02:15→18:00)
--- NOTE | 2018-06-18 04:20 | NUR ---
HR 140-170, SINUS, PT. FULLY AWAKE, PROPOFOL OFF AT THIS TIME. DEEP ETT SUCTION DONE AND HR DOWN TO 90'S. PROPOFOL RESTARTED.
--- NOTE | 2018-06-18 06:15 | NUR ---
DIALYSIS NURSE AT BEDSIDE
[2018-06-18 06:33] LABS: Basophils # (auto) 0 uL; Eosinophils # (auto) 0 uL; Hemoglobin 7.4 g/dL (12.2-16.2); Lymphocytes # (auto) 0.3 uL; Monocytes # (auto) 0.2 uL; Neutrophils % (auto) 96.5 % (37.0-80.0); Red Cell Distribution Width 14.3 % (11.8-14.3)
[2018-06-18 06:36] LABS: Basophils % (auto) 0.2 % (0.0-2.0); Hematocrit 21.4 % (36.0-46.0); Mean Corpuscular Hemoglobin 33.6 pg (28.0-32.0); Mean Corpuscular Hgb Conc. 34.4 g/dL (32.0-36.0); Mean Corpuscular Volume 97.8 fL (80.0-100.0); Monocytes % (auto) 1.3 % (0.0-12.0); Neutrophils # (auto) 13.7 uL; Platelet Count (auto) 101 10^3/uL (140-450); Red Blood Cells 2.19 10^6/uL (4.0-5.20); White Blood Cell 14.2 10^3/uL (4.4-10.8)
[2018-06-18 06:45] LABS: Potassium 4.2 mmol/L (3.5-5.1)
[2018-06-18 06:50] LABS: Albumin 2.6 g/dL (3.4-5.0); Calcium 7.1 mg/dL (8.5-10.1)
[2018-06-18 06:55] LABS: Bilirubin, Total 0.5 mg/dL (0.2-1.0); Total Protein 6.1 g/dL (6.4-8.2)
[2018-06-18] MEDS: ACCU-CHEK COMFORT CURVE STRIP VI SCH ×4 (07:19→22:00)
[2018-06-18] MEDS: InsuLIN REG 1unit/0.01ml Soln (100units/ml) SC SCH ×4 (07:26→22:26)
[2018-06-18] MEDS: CALCIUM ACETATE 667 MG CAP PO SCH ×3 (08:00→18:00)
[2018-06-18] MEDS ORDERED: HEPARIN DRIP/D5W 100UNITS/ML 250 ML IV SCH (08:15)
[2018-06-18] MEDS: SODIUM BICARBONATE 650 MG TAB PO SCH ×3 (08:17→22:00)
--- NOTE | 2018-06-18 09:45 | NUR ---
HD COMPLETED: HD completed, per HD nurse Michele catheter is positional and was difficult to use to complete the treatment only 250 mL removed.
[2018-06-18] MEDS: METOPROLOL SUCCINATE XL 50 MG TAB PO SCH (10:00)
[2018-06-18] MEDS: PANTOPRAZOLE 40 MG/10 ML VIAL IV SCH ×2 (11:00→21:56)
[2018-06-18] MEDS: cefTRIAXone 1GM/50ML D5W 50 ML IV SCH (11:00)
--- NOTE | 2018-06-18 11:30 | NUR ---
AT BEDSIDE: Dr. Manzo at bedside, informed him of critical troponin level. Patient on heparin drip, no further order received.
[2018-06-18 11:40] LABS: Basophils # (auto) 0 uL; Eosinophils # (auto) 0 uL; Monocytes # (auto) 0.4 uL; Red Cell Distribution Width 14.2 % (11.8-14.3)
[2018-06-18 11:43] LABS: Basophils % (auto) 0.1 % (0.0-2.0); Hematocrit 19.7 % (36.0-46.0); Lymphocytes # (auto) 0.5 uL; Mean Corpuscular Hemoglobin 33.1 pg (28.0-32.0); Mean Corpuscular Hgb Conc. 33.9 g/dL (32.0-36.0); Mean Corpuscular Volume 97.6 fL (80.0-100.0); Monocytes % (auto) 2.5 % (0.0-12.0); Neutrophils # (auto) 14.1 uL; Neutrophils % (auto) 94.4 % (37.0-80.0); Platelet Count (auto) 95 10^3/uL (140-450); Red Blood Cells 2.02 10^6/uL (4.0-5.20); White Blood Cell 14.9 10^3/uL (4.4-10.8)
[2018-06-18 12:10] LABS: Potassium 3.9 mmol/L (3.5-5.1)
[2018-06-18 12:17] LABS: Albumin 2.5 g/dL (3.4-5.0); BUN/Creatinine Ratio 11.9; Bilirubin, Total 0.5 mg/dL (0.2-1.0); Calcium 7.1 mg/dL (8.5-10.1); Total Protein 5.8 g/dL (6.4-8.2)
[2018-06-18 12:19] LABS: Hemoglobin 6.7 g/dL (12.2-16.2)
--- NOTE | 2018-06-18 15:00 | NUR ---
NOTIFIED OF CRITICAL LAB: REGINE Polo service consultant for hospitalist. Informed him that Dr. Manzo did not return the previous page for reporting of critical lab value. Hbg of 6.7 reported, discussed with REGINE Polo that Dr. Tyson had mentioned during rounds possibility of transfusion reaction and that the patient may be high risk for repeat transfusion. Orders received.
[2018-06-18 15:50] LABS: INR 1.02 (0.9-1.15); Partial Thromboplastin Time 40.4 sec (23.78-33.04); Prothrombin Time 10.9 sec (9.27-12.13)
[2018-06-18] MEDS: HEPARIN DRIP/D5W 100UNITS/ML 250 ML IV SCH (16:30)
--- NOTE | 2018-06-18 20:15 | NUR ---
OPENING SHIFT NOTE Received report from JILLIAN Deleon. Pt resting in bed, intubated, and lightly sedated. Pt follows commands and responds appropriately. See IV spreadsheet and completed physical assessment intervention. Bed locked, in lowest position with top two side rails up, and call light within reach. All alarms on and audible. Will continue to monitor pt.
--- NOTE | 2018-06-18 20:45 | NUR ---
SON AT BEDSIDE Pt's son at bedside. Updated on pt condition and answered all questions. Pt's son verbalized understanding.
[2018-06-18] MEDS ORDERED: EPOETIN ALFA 10,000 UNIT/1 ML VIAL SC ONE (21:00)
--- NOTE | 2018-06-18 21:05 | NUR ---
VISITORS Additional visitors at bedside.
[2018-06-18] MEDS: ATORVASTATIN 20 MG TAB PO SCH (21:57)
[2018-06-18 22:00] LABS: Hematocrit 19.1 % (36.0-46.0)
[2018-06-18 22:06] LABS: Hemoglobin 6.7 g/dL (12.2-16.2)
--- NOTE | 2018-06-18 22:54 | NUR ---
HEPARIN DRIP RATE INCREASED aPTT 42.00 seconds. Heparin drip rate increased by 200 units/hr per protocol and is now running at 1200 units/hr.
--- NOTE | 2018-06-18 22:55 | NUR ---
CRITICAL LAB Hospitalist paged regarding critical lab. Awaiting return phone call.
--- NOTE | 2018-06-18 23:06 | NUR ---
RETURN PHONE CALL FROM HOSPITALIST Received return phone call from REGINE Drummond. Updated on pt condition and notified of critical hemoglobin. No new orders received.
[2018-06-18] MEDS: PROPOFOL 100 ML IV SCH (23:58)
[2018-06-18] MEDS: fentaNYL Drip 2500mCg/250mlNS 250 ML IV SCH (23:58)
[2018-06-19] VITALS (107 sets, daily range): BP systolic 93–132; BP diastolic 50–84
[2018-06-19] MEDS: methylPREDNISolone SOD SUCC 40 MG/ML VL IV SCH ×5 (00:30→21:36)
[2018-06-19] MEDS: LINEZOLID 600MG/300ML 300 ML IV SCH ×2 (00:30→13:00)
--- NOTE | 2018-06-19 04:01 | NUR ---
CRITICAL ABG RESULTS Left v/m for Dr. Gama to return phone call regarding critical ABG results. Awaiting return phone call.
--- NOTE | 2018-06-19 05:03 | NUR ---
RETURN PHONE CALL FROM DR. ORONA Received return phone call from Dr. Orona. Notified of critical ABG results. Telephone orders received and verified via read-back. RT Roxane notified of MD ordered ventilator setting changes.
[2018-06-19] MEDS: SODIUM BICARBONATE 650 MG TAB PO SCH ×3 (05:45→21:37)
[2018-06-19 05:49] LABS: Basophils # (auto) 0 uL; Basophils % (auto) 0.1 % (0.0-2.0); Eosinophils # (auto) 0 uL; Hematocrit 18.6 % (36.0-46.0); Lymphocytes # (auto) 0.5 uL; Monocytes # (auto) 0.3 uL; Nucleated Red Blood Cells % 0.1 %; Platelet Count (auto) 86 10^3/uL (140-450)
[2018-06-19 05:52] LABS: Lymphocytes % (auto) 6.2 % (10.0-50.0); Mean Corpuscular Hgb Conc. 34.8 g/dL (32.0-36.0); Mean Corpuscular Volume 97.6 fL (80.0-100.0); Monocytes % (auto) 3.3 % (0.0-12.0); Neutrophils # (auto) 7.5 uL; Neutrophils % (auto) 90.4 % (37.0-80.0); Red Cell Distribution Width 14.3 % (11.8-14.3); White Blood Cell 8.3 10^3/uL (4.4-10.8)
[2018-06-19 06:11] LABS: Potassium 3.9 mmol/L (3.5-5.1)
[2018-06-19 06:15] LABS: Albumin 2.4 g/dL (3.4-5.0); Calcium 6.8 mg/dL (8.5-10.1)
[2018-06-19 06:16] LABS: INR 1.03 (0.9-1.15)
[2018-06-19 06:18] LABS: Bilirubin, Total 0.6 mg/dL (0.2-1.0); Total Protein 5.5 g/dL (6.4-8.2)
[2018-06-19 06:29] LABS: Hemoglobin 6.5 g/dL (12.2-16.2)
--- NOTE | 2018-06-19 06:30 | NUR ---
BATH/LINEN CHANGE Pt given complete CHG bath. Minimal assistance provided during bath, pt mostly bathed self. Skin integrity assessed for any changes, no changes noted. Linens changed. Pt repositioned for comfort. Pt tolerated well and VSS.
[2018-06-19 06:31] LABS: Partial Thromboplastin Time 81.2 sec (23.78-33.04)
[2018-06-19 06:39] LABS: CRP High Sensitivity 6.95 mg/dL (< 0.3)
[2018-06-19 06:43] LABS: % Iron Saturation 16.5 % (15-50)
--- NOTE | 2018-06-19 06:48 | NUR ---
HEPARIN DRIP RATE DECREASED aPTT 81.20 seconds. Heparin drip rate decreased by 200 units/hr per protocol and is now infusing at 1000 units/hr.
[2018-06-19] MEDS ORDERED: SODIUM CHL 0.9% 1000 ML BAG XX ONE ×2 (07:00)
--- NOTE | 2018-06-19 07:15 | NUR ---
REPORT Report given to JILLIAN Farley. Notified of critical labs. Care endorsed.
--- NOTE | 2018-06-19 07:30 | NUR ---
SBAR report given by JILLIAN Ramirez.
[2018-06-19] MEDS: ACCU-CHEK COMFORT CURVE STRIP VI SCH ×4 (07:44→22:15)
[2018-06-19] MEDS: InsuLIN REG 1unit/0.01ml Soln (100units/ml) SC SCH ×4 (07:47→22:16)
[2018-06-19] MEDS: CALCIUM ACETATE 667 MG CAP PO SCH ×3 (08:00→18:06)
--- NOTE | 2018-06-19 08:00 | NUR ---
Dr. Manzo rounded today- am labs ordered.
--- NOTE | 2018-06-19 08:45 | NUR ---
Patient seen by Dr. Greer- give one unit of PRBC's,
[2018-06-19] MEDS: PROPOFOL 100 ML IV SCH ×2 (09:00→10:44)
[2018-06-19] MEDS: fentaNYL Drip 2500mCg/250mlNS 250 ML IV SCH ×2 (09:00→10:44)
[2018-06-19] MEDS: cefTRIAXone 1GM/50ML D5W 50 ML IV SCH (09:00)
[2018-06-19] MEDS ORDERED: diphenhdrAMINE HCL 50 MG/1 ML VL IV ONE (10:00)
[2018-06-19] MEDS ORDERED: diphenhdrAMINE HCL 50 MG/1 ML VL ONE (10:06)
--- NOTE | 2018-06-19 10:06 | NUR ---
Bendryl and Solu-medrol given prior to transfusion to prevent reaction- will give slowly and monitor.
[2018-06-19] MEDS: PANTOPRAZOLE 40 MG/10 ML VIAL IV SCH ×2 (10:23→21:36)
[2018-06-19] MEDS: METOPROLOL SUCCINATE XL 50 MG TAB PO SCH (10:24)
[2018-06-19] MEDS: SODIUM FERR GLUC 62.5MG/5ML 125 MG in SODIUM CHL 0.9% 100 ML IV SCH (12:00)
--- NOTE | 2018-06-19 12:59 | NUR ---
Patient infusing blood -unable to draw ptt (running slow due to CHF and poss. previous reaction). Will draw one hr after completion.
--- NOTE | 2018-06-19 14:06 | NUR ---
Patient tolerated blood transfusion.
--- NOTE | 2018-06-19 15:17 | NUR ---
Dr. Tyson aware left IJ not working-Tunneled catheter placement for dialysis ordered for tomorrow consulted IR. Obtain consent.
--- NOTE | 2018-06-19 15:50 | NUR ---
Dr. Huffman- Left heart cath tomorrow -obtain consent.
--- NOTE | 2018-06-19 16:29 | NUR ---
Cpap orders per Dr. Gama-patient has been on dialysis most of day unable to CPAP. Patient scheduled for two procedures tomorrow. 1. Tunneled catheter 2. Left heart catheter
[2018-06-19] MEDS: HEPARIN DRIP/D5W 100UNITS/ML 250 ML IV SCH (16:30)
[2018-06-19 16:38] LABS: Basophils # (auto) 0 uL; Eosinophils # (auto) 0 uL; Hemoglobin 7.5 g/dL (12.2-16.2); Lymphocytes # (auto) 0.4 uL; Platelet Count (auto) 88 10^3/uL (140-450); White Blood Cell 11.7 10^3/uL (4.4-10.8)
[2018-06-19 16:39] LABS: Basophils % (auto) 0.4 % (0.0-2.0); Hematocrit 21.7 % (36.0-46.0); Lymphocytes % (auto) 3.7 % (10.0-50.0); Mean Corpuscular Hemoglobin 32.9 pg (28.0-32.0); Mean Corpuscular Hgb Conc. 34.6 g/dL (32.0-36.0); Mean Corpuscular Volume 95.3 fL (80.0-100.0); Monocytes # (auto) 0.9 uL; Monocytes % (auto) 8.1 % (0.0-12.0); Neutrophils # (auto) 10.3 uL; Neutrophils % (auto) 87.8 % (37.0-80.0); Nucleated Red Blood Cells % 0.4 %; Red Blood Cells 2.27 10^6/uL (4.0-5.20); Red Cell Distribution Width 14.7 % (11.8-14.3)
[2018-06-19 17:22] LABS: INR 1.07 (0.9-1.15)
[2018-06-19 17:29] LABS: Partial Thromboplastin Time > 170.00 sec (23.78-33.04)
--- NOTE | 2018-06-19 18:00 | NUR ---
Output for day shift: Verdugo = 50 Nephrostomy= 100 Dialysis = unable
--- NOTE | 2018-06-19 19:15 | NUR ---
SS consult re: insurance assistance. [facility] emergency [employer] application is in and approval is pending. When approved pt's coverage will be limited because she is visiting from [place]. Will continue to monitor pt's condition and medi-steven status.
--- NOTE | 2018-06-19 19:41 | NUR ---
Report given to JILLIAN Farias.
[2018-06-19] MEDS ORDERED: EPOETIN ALFA 10,000 UNIT/1 ML VIAL SC ONE ×2 (21:00)
--- NOTE | 2018-06-19 21:00 | NUR ---
SEDATION VACATION HELD PATIENT IS ON FENTANYL 100 MCG AND DIPRIVAN 15 MCG. PATIENT IS ALERT AND OBEYS COMMANDS WHEN CALLED HER NAME.
[2018-06-19] MEDS: ATORVASTATIN 20 MG TAB PO SCH (21:37)
[2018-06-20] VITALS (103 sets, daily range): BP systolic 112–158; BP diastolic 46–86
[2018-06-20] MEDS: PROPOFOL 100 ML IV SCH (00:28)
[2018-06-20] MEDS: LINEZOLID 600MG/300ML 300 ML IV SCH ×2 (00:33→13:00)
--- NOTE | 2018-06-20 04:00 | NUR ---
Patient bathe/linen change Patient given complete bath. Skin integrity assessed for any changes. Linens changed. Patient repositioned for comfort.
[2018-06-20] MEDS: SODIUM BICARBONATE 650 MG TAB PO SCH ×3 (06:00→20:50)
[2018-06-20] MEDS: ACCU-CHEK COMFORT CURVE STRIP VI SCH ×4 (06:25→20:51)
[2018-06-20] MEDS: InsuLIN REG 1unit/0.01ml Soln (100units/ml) SC SCH ×4 (06:25→22:25)
--- NOTE | 2018-06-20 07:00 | NUR ---
SBAR report received from JILLIAN Farias.
[2018-06-20 07:15] LABS: Mean Corpuscular Hemoglobin 33.4 pg (28.0-32.0); Red Blood Cells 2.39 10^6/uL (4.0-5.20); White Blood Cell 7.8 10^3/uL (4.4-10.8)
[2018-06-20 07:16] LABS: Mean Corpuscular Hgb Conc. 34.8 g/dL (32.0-36.0); Mean Corpuscular Volume 96.1 fL (80.0-100.0); Platelet Count (auto) 93 10^3/uL (140-450); Red Cell Distribution Width 14.8 % (11.8-14.3)
[2018-06-20 07:27] LABS: Calcium 6.6 mg/dL (8.5-10.1); Potassium 4.4 mmol/L (3.5-5.1)
[2018-06-20] MEDS: fentaNYL Drip 2500mCg/250mlNS 250 ML IV SCH (07:31)
[2018-06-20 07:35] LABS: Albumin 2.4 g/dL (3.4-5.0); BUN/Creatinine Ratio 14.6; Bilirubin, Total 0.5 mg/dL (0.2-1.0); Total Protein 5.4 g/dL (6.4-8.2)
[2018-06-20] MEDS: CALCIUM ACETATE 667 MG CAP PO SCH ×3 (08:00→17:49)
--- NOTE | 2018-06-20 08:15 | NUR ---
Dr. Tyson at bedside- try to get tunneled cath if not have Dr. Tavera replace Michele.
[2018-06-20 08:58] LABS: Band Neutrophils % (manual) 0; Basophils % (manual) 0 (0.0-2.0); Blast Cells 0; Eosinophils % (manual) 0 (0-7); Metamyelocytes % 0; Myelocytes % 0; Promyelocytes % 0; Reactive Lymphocytes 0
[2018-06-20 09:00] LABS: Lymphocytes % (manual) 5 (10.0-50.0); Monocytes % (manual) 2 (0-12)
[2018-06-20] MEDS: cefTRIAXone 1GM/50ML D5W 50 ML IV SCH (09:00)
[2018-06-20 09:32] LABS: Partial Thromboplastin Time 31.2 sec (23.78-33.04)
--- NOTE | 2018-06-20 09:34 | NUR ---
Dr. Simon unable to do tunneled catheter- Dr. Tavera will be here to revise the Michele catheter.
[2018-06-20] MEDS ORDERED: HEPARIN SODIUM (PORCINE) 5000 UNITS/ML 1ML VIAL ONE ×2 (09:53→10:14)
[2018-06-20] MEDS: METOPROLOL SUCCINATE XL 50 MG TAB PO SCH (10:00)
[2018-06-20] MEDS: PANTOPRAZOLE 40 MG/10 ML VIAL IV SCH ×2 (10:05→20:49)
[2018-06-20] MEDS: methylPREDNISolone SOD SUCC 40 MG/ML VL IV SCH ×2 (10:06→20:49)
[2018-06-20] MEDS ORDERED: HEPARIN SODIUM (PORCINE) 5000 UNITS/ML 1ML VIAL IV ONE ×2 (10:15)
--- NOTE | 2018-06-20 10:15 | NUR ---
Son at bedside- aware of plans for CPAP after dialysis.
[2018-06-20 10:49] LABS: INR 1.02 (0.9-1.15); Prothrombin Time 10.9 sec (9.27-12.13)
--- NOTE | 2018-06-20 11:28 | NUR ---
Dr. Barajas at bedside - try to CPAP after dialysis.
[2018-06-20] MEDS ORDERED: LORazepam 0.5 MG TAB PO PRN (11:45)
[2018-06-20] MEDS: SODIUM FERR GLUC 62.5MG/5ML 125 MG in SODIUM CHL 0.9% 100 ML IV SCH (12:00)
[2018-06-20 12:18] LABS: Hepatitis B Core IgM Negative; Hepatitis C Antibody Negative (Negative)
[2018-06-20 12:19] LABS: Hepatitis A Ab IgM Negative; Hepatitis B Surface Antigen Negative (Negative)
--- NOTE | 2018-06-20 13:41 | NUR ---
Nutrition Consult and Follow-up Notes Wt.: 53.8 kg today. Pt was intubated (06/16/18), no immediate family member at bedside except for RT and RN during rounds this morning. Pt's currently sedated with Propofol @ 5.166 ml/hr providing 136 kcal from Fat, had dialysis (06/18/18), currently NPO for possible CPAP trial today, per nursing. Est. Needs reassessed based on CBWt.(54 kg): 2381-6814 kcal (25-30 kcal/kgBW), 65-86 gms pro (1.2-1.6 gms/kgBW r/t ESRD on HD, severe hypoalbuminemia). Will continue to monitor pertinent labs and reassess nutrient needs prn. Labs: Gluc 216 H, Na 132 L, BUN 58 H, Cr 3.97 H, Ca 6.6 L, Trop I 8.200 H, Tpro 5.4 L, Alb 2.4 L Skin: Didier scale 18, mod risk, pt's left posterior flank urostomy tube intact per sugar sampler. GI: Pt had 1 BM 06/13/18 per sugar sampler. PES: Altered nutrition related lab values r/t current/chronic medical condition aeb elev RFT, mild hypoalb, hyperglycemia, hypocalcemia Increased nutrient needs r/t acute/chronic medical condition aeb ESRD on HD, severe hypoalbuminemia, intubated, sedated, NPO. Will continue to monitor NPO status, skin status, pertinent labs and weight trend. F/u in 2 to 3 days. Rec.: 1.) If still NPO in next 48 hrs, consider alternate/EN support with formula choice of Nepro Carb Steady @ 30 ml/hr as tolerated while on current rate of Propofol. 2.) If Albumin level continues trending down, consider Prostat 1 pkt BID. 3.) Resume gradually to oral diet when medically appropriate. 4.) Refer pt to CDE/RD for further nutrition education and weight monitoring upon discharge. 5.) Continue current plan of care. Thank you for this consult.
--- NOTE | 2018-06-20 15:20 | NUR ---
PT. PLACED ON CPAP, PEEP 5,PS 8, PER DR. MUHAMMAD'S ORDERS. PT. FINISHED WITH DIALYSIS, SHE IS AWAKE AND FOLLOWING COMMANDS. SEDATION IS OFF, FAMILY AT BEDSIDE. PT. IS TOLERATING WELL,WILL CONTINUE TO MONITOR RESP. STATUS.
--- NOTE | 2018-06-20 15:30 | NUR ---
Patient on CPAP trial tolerating well.
[2018-06-20 15:47] LABS: INR 1.09 (0.9-1.15)
--- NOTE | 2018-06-20 15:54 | NUR ---
Patient tolerated dialysis- 2.5 liters out.
[2018-06-20 16:00] LABS: Partial Thromboplastin Time > 170.00 sec (23.78-33.04)
--- NOTE | 2018-06-20 16:25 | NUR ---
RECEIVED T.O. TO EXTUBATE PT. PER DR. ORONA.
[2018-06-20] MEDS: HEPARIN DRIP/D5W 100UNITS/ML 250 ML IV SCH (16:30)
--- NOTE | 2018-06-20 16:35 | NUR ---
Patient extubated on cool aersol mask -Rt Nirmala at bedside. No distress -sats 93%.
--- NOTE | 2018-06-20 16:35 | NUR ---
PT. EXTUBATED AND PLACED ON COOL AEROSOL A 40%, SPO2 88%, INCREASED TO 60% FI02 , SPO2 92-95%. PT. IS AWAKE ALERT, NO DISTRESS NOTED, HR=96,RR=21,GC=530/87. WILL CONTINUE TO TITRATE FIO2 PT. TOLERATES.
--- NOTE | 2018-06-20 18:11 | NUR ---
Output: Hemodialysis output = 2.5 liters Nephrostomy = 300
[2018-06-20] MEDS ORDERED: ALBUTEROL SULF 2.5 MG/0.5ML(0.5%) NEB SOLN NEB PRN (18:15)
[2018-06-20] MEDS: ALBUTEROL SULF 2.5 MG/0.5ML(0.5%) NEB SOLN NEB SCH (19:04)
[2018-06-20] MEDS: MORPHINE SULFATE 4 MG/ML SYR/VIAL IV PRN (19:05)
[2018-06-20] MEDS: HYDROcodone-ACET 5/325MG TAB PO PRN (19:55)
[2018-06-20] MEDS: ATORVASTATIN 20 MG TAB PO SCH (20:50)
[2018-06-20] MEDS ORDERED: EPOETIN ALFA 10,000 UNIT/1 ML VIAL SC ONE (21:00)
[2018-06-20 23:39] LABS: INR 1.03 (0.9-1.15); Partial Thromboplastin Time 32.7 sec (23.78-33.04)
[2018-06-21] VITALS (99 sets, daily range): BP systolic 0–183; BP diastolic 0–106
[2018-06-21] MEDS: LINEZOLID 600MG/300ML 300 ML IV SCH ×2 (00:32→15:42)
[2018-06-21] MEDS: HYDROcodone-ACET 5/325MG TAB PO PRN (01:34)
[2018-06-21] MEDS: ALBUTEROL SULF 2.5 MG/0.5ML(0.5%) NEB SOLN NEB SCH ×5 (02:00→23:48)
--- NOTE | 2018-06-21 02:00 | NUR ---
RESP/CARDIAC PT C/O CHEST PAIN 11/16 MORPHINE 2 MG SIVP GIVEN PER ORDER. AUSCULTATION OF LUNG SOUNDS PT SOUNDS VERY DIMINISHED WITH CRACKLES THROUGHOUT. SATS 87% ON N/C 5L. R.T. NOTIFIED. BREATHING TX PROVIDED. WILL PASS ON TO PRIMARY RN WHEN RETURN FROM LUNCH. THIS REGIONAL PRODUCTION MANAGER ICU CHARGE COVERING FOR PRIMARY.
[2018-06-21] MEDS: MORPHINE SULFATE 4 MG/ML SYR/VIAL IV PRN (02:06)
--- NOTE | 2018-06-21 02:35 | NUR ---
Karime Drummond paged
--- NOTE | 2018-06-21 02:43 | NUR ---
Abena Drummond Addendum: 06/21/18 at 0244 by Kristopher Chaudhary RN Karime Daniel
[2018-06-21] MEDS ORDERED: FUROSEMIDE 20 MG/2 ML VIAL ONE (02:55)
[2018-06-21] MEDS ORDERED: FUROSEMIDE 20 MG/2 ML VIAL IV ONE (03:00)
--- NOTE | 2018-06-21 03:19 | NUR ---
Bhanu CORPORATE ANALYST notified that patient was SOB, and complaining of substernal pain. Patient placed on Bipap per CORPORATE ANALYST order. One dose of lasix ordered as well. CORPORATE ANALYST Bhanu aware of all current lab values.
[2018-06-21] MEDS: cloNIDine HCL 0.1 MG TAB PO PRN (04:04)
[2018-06-21 04:16] LABS: Basophils # (auto) 0 uL; Basophils % (auto) 0.1 % (0.0-2.0); Eosinophils # (auto) 0 uL; Hemoglobin 9.8 g/dL (12.2-16.2); Lymphocytes # (auto) 0.7 uL; Lymphocytes % (auto) 4.6 % (10.0-50.0); Mean Corpuscular Hemoglobin 33.1 pg (28.0-32.0); Mean Corpuscular Volume 97.5 fL (80.0-100.0); Monocytes # (auto) 0.7 uL; Monocytes % (auto) 4.2 % (0.0-12.0); Neutrophils # (auto) 14.8 uL; Neutrophils % (auto) 91.1 % (37.0-80.0); Platelet Count (auto) 119 10^3/uL (140-450); Red Blood Cells 2.98 10^6/uL (4.0-5.20); Red Cell Distribution Width 15.3 % (11.8-14.3); White Blood Cell 16.2 10^3/uL (4.4-10.8)
[2018-06-21 04:25] LABS: Nucleated Red Blood Cells % 4.8 %
[2018-06-21 04:40] LABS: Potassium 4.4 mmol/L (3.5-5.1)
[2018-06-21 04:43] LABS: Albumin 2.7 g/dL (3.4-5.0); Calcium 6.8 mg/dL (8.5-10.1)
[2018-06-21 04:46] LABS: Bilirubin, Total 0.6 mg/dL (0.2-1.0); Total Protein 6.2 g/dL (6.4-8.2)
[2018-06-21] MEDS: SODIUM BICARBONATE 650 MG TAB PO SCH ×3 (05:43→21:36)
[2018-06-21] MEDS: InsuLIN REG 1unit/0.01ml Soln (100units/ml) SC SCH (05:49)
--- NOTE | 2018-06-21 06:06 | NUR ---
CALENDER WIND UP HELPER denis notified that patient is on 100 % fio2 Bipap. Received orders for ABG now. Also notified CALENDER WIND UP HELPER denis of elevated Blood sugar in the 400s. Patient aloc x4. Demonstrating sob. Heart rate elevated in the 120s. SBP 130-160. CALENDER WIND UP HELPER Denis aware of all pertinent information regarding patient care and numerical values.
--- NOTE | 2018-06-21 06:10 | NUR ---
Paged Karime denis regarding abg results. Awaiting response
--- NOTE | 2018-06-21 07:26 | NUR ---
PAGED DR LEON/ADWOA TO NOTIFY OF PATIENT STATUS, SOB AND ABG RESULTS, AWAITING RESPONSE.
--- NOTE | 2018-06-21 07:40 | NUR ---
RETURN CALL FROM DR LEON UPDATED ON PATIENT'S STATUS, ORDERS RECEIVED.
--- NOTE | 2018-06-21 07:45 | NUR ---
CONTACT DR ALISON ROSAS NOTIFIED OF STATUS AND CODE CALLED, NO ORDERS AT THIS TIME.
[2018-06-21] MEDS ORDERED: SODIUM BICARBONATE 8.4% INJ 50ML SYRINGE ONE (07:48)
--- NOTE | 2018-06-21 07:49 | NUR ---
Code Blue note. VS unstable, please see CODE sheets and Provider/MD notes regarding patient code. Family notified of status change. Patient's son Galen reported he is on his way.
[2018-06-21] MEDS ORDERED: MIDAZOLAM HCL 5 MG/ML-1ML VIAL ONE (07:53)
[2018-06-21] MEDS ORDERED: MIDAZOLAM DRIP 50 mg/50mL 50 ML IV ONE (07:53)
[2018-06-21] MEDS ORDERED: ETOMIDATE (2MG/ML) 20ML VIAL IV ONE (07:53)
[2018-06-21] MEDS ORDERED: SODIUM BICARBONATE 8.4 % INJ 50ML VIAL IV ONE (08:00)
--- NOTE | 2018-06-21 08:00 | NUR ---
Respiratory note: PT WAS INTUBATED, PLACEMENT CONFIRMED BY BILATERAL BREATH SOUNDS AND CAPNOMETER COLOR CHANGE. PT PLACED ONTO VENT [id number] PLUGGED INTO RED OUTLET AND PROPER O2 SOURCE WITH AMBU BAG AND MASK AVAILABLE AT BEDSIDE. ETT SECURED WITH [place]OL[place], NO LIP OR SKIN BREAKDOWN NOTED. BILATERAL BREATH SOUNDS COARSE CRACKLES/RALES. ALARMS SET AND AUDIBLE. PT IS SEDATED, SKIN IS COOL AND DRY TO TOUCH, NO EDEMA NOTED IN EXTREMITIES. SPUTUM SAMPLE COLLECTED AND SENT TO LAB. ABG TO FOLLOW. RN AT BEDSIDE. WILL CONTINUE TO MONITOR.
[2018-06-21] MEDS ORDERED: VASOPRESSIN 20 UNIT/ML ONE (08:01)
[2018-06-21] MEDS: VASOPRESSIN 50 UNITS in D5W 5% 247.5 ML IV SCH (08:15)
--- NOTE | 2018-06-21 08:15 | NUR ---
DR LEON AT BEDSIDE/PAGED DR ROSAS AWARE OF STATUS. DR LEON DISCUSSED PLAN OF CARE WITH PATIENT FAMILY.
[2018-06-21] MEDS ORDERED: AMIODARONE HCL 900 MG in DEXTROSE 500 ML IV SCH (08:16)
[2018-06-21 08:20] LABS: Red Cell Distribution Width 15.7 % (11.8-14.3)
[2018-06-21 08:25] LABS: Hematocrit 31.5 % (36.0-46.0); Hemoglobin 10.1 g/dL (12.2-16.2); Mean Corpuscular Hemoglobin 33.2 pg (28.0-32.0); Mean Corpuscular Hgb Conc. 32.1 g/dL (32.0-36.0); Mean Corpuscular Volume 103.4 fL (80.0-100.0); Platelet Count (auto) 122 10^3/uL (140-450); Red Blood Cells 3.05 10^6/uL (4.0-5.20); White Blood Cell 19.4 10^3/uL (4.4-10.8)
[2018-06-21 08:33] LABS: INR 1.25 (0.9-1.15); Prothrombin Time 13.2 sec (9.27-12.13)
[2018-06-21 08:45] LABS: Magnesium 2.9 mg/dL (1.6-2.6)
[2018-06-21] MEDS ORDERED: SODIUM CHL 0.9% 1000 ML BAG XX ONE (08:45)
--- NOTE | 2018-06-21 08:50 | NUR ---
RETURN CALL FROM DR ADWOA ORONA UPDATED ON PATIENT'S STATUS. NO ORDERS AT THIS TIME.
--- NOTE | 2018-06-21 09:00 | NUR ---
DIALYSIS NURSE/HOSPITALIST AT BEDSIDE DIALYSIS NURSE AT BEDSIDE, DR MUHAMMAD UPDATED ON PATIENT'S STATUS. DR MUHAMMAD DISCUSSED PLAN OF CARE WITH FAMILY AT BEDSIDE. ORDERS RECEIVED AT THIS TIME.
[2018-06-21 09:14] LABS: Anion Gap 24 (5-15); Carbon Dioxide 13 mmol/L (21-32); Chloride 96 mmol/L (98-107); Potassium 5.1 mmol/L (3.5-5.1); Sodium 133 mmol/L (136-145)
[2018-06-21 09:15] LABS: BUN/Creatinine Ratio 11.9; Basophils % (manual) 0 (0.0-2.0); Blast Cells 0; Blood Urea Nitrogen 55 mg/dL (7-18); Calcium 6.8 mg/dL (8.5-10.1); Eosinophils % (manual) 0 (0-7); GFR African American 12 mL/min; GFR Non-African American 10 mL/min; Metamyelocytes % 0; Myelocytes % 0; Promyelocytes % 0; Reactive Lymphocytes 0
[2018-06-21 09:17] LABS: Band Neutrophils % (manual) 1; Lymphocytes % (manual) 5 (10.0-50.0); Monocytes % (manual) 4 (0-12)
[2018-06-21 09:18] LABS: Glucose 417 mg/dL (74-106)
--- NOTE | 2018-06-21 09:20 | NUR ---
CONTACT OLIVE BRINE TESTER LENA UPDATED ON PATIENT'S STATUS AND INQUIRE OF HEART CATH. LENA STATED NO ORDERS HAVE BEEN RECEIVED FROM DR ROSAS AND THEY WILL NOTIFY DR ROSAS OF STATUS.
[2018-06-21 09:28] LABS: Phosphorus 11.5 mg/dL (2.5-4.90)
--- NOTE | 2018-06-21 09:29 | NUR ---
CRITICAL LAB CALL RECEIVED FROM LAB TO REPORT CRITICAL LABS - NEPHROLOGY, DR LEON NOTIFIED AND AWARE.
--- NOTE | 2018-06-21 09:45 | NUR ---
DR LEON ORDERS TO BEGIN LEVOPHED, DIALYSIS NURSE WILL START PULLING FLUIDS. CONTACT PHARMACY REGARDING LEVOPHED, AWAITING RECEIPT OF QUAD DOSE MIXTURE.
[2018-06-21] MEDS: MIDAZOLAM DRIP 50 mg/50mL 50 ML IV SCH ×2 (09:47→13:37)
[2018-06-21] MEDS: NOREPINEPHRINE BITARTRATE 32 MG in D5W 5% 218 ML IV SCH (10:00)
[2018-06-21] MEDS: METOPROLOL SUCCINATE XL 50 MG TAB PO SCH (10:00)
[2018-06-21] MEDS: HEPARIN DRIP/D5W 100UNITS/ML 250 ML IV SCH (10:21)
--- NOTE | 2018-06-21 10:26 | NUR ---
CONTACT PHARMACY REGARDING APTT COAGULATION FOR HEPARIN DOSING, PER ARSEN, ORDERS FOR PT ONLY PLACED AND RECOMMENDED THIS NURSE PLACE A STAT ORDER FOR PT/PTT AND SHE WILL PROCESS STAT. ORDERS PLACED, AWAITING RESULTS.
--- NOTE | 2018-06-21 10:58 | NUR ---
PENDING PTT/APTT RESULTS FOR HEPARIN CHANGE PER PROTOCOL. LAB AWARE.
[2018-06-21 11:12] LABS: INR 1.27 (0.9-1.15); Prothrombin Time 13.4 sec (9.27-12.13)
[2018-06-21] MEDS ORDERED: InsuLIN R (HUMAN) 100 UNITS in SODIUM CHL 0.9% 99 ML IV SCH (11:14)
[2018-06-21 11:15] LABS: Partial Thromboplastin Time 139.6 sec (23.78-33.04)
[2018-06-21] MEDS ORDERED: DEXTROSE (50%) 50ML SYRG IV PRN (11:15)
--- NOTE | 2018-06-21 11:17 | NUR ---
ORDERS FOR HOSPITALIST DR MUHAMMAD AWARE OF LABS, ORDERS RECEIVED.
--- NOTE | 2018-06-21 11:28 | NUR ---
HEPARIN STOPPED PER PROTOCOL BASED ON APTT RESULTS. WILL MONITOR AND FOLLOW PROTOCOL RECOMMENDATIONS. Addendum: 06/21/18 at 1159 by Sheryl Jerome RN PTT/APTT RESULTS RECEIVED AT THIS TIME, CRITICAL RESULTS CALLED IN BY ARSEN TO THIS NURSE. CHANGES MADE PER PROTOCOL. WILL RE-ADJUST PT/PTT LAB DRAW 6 HOURS FROM 1130 WHEN HEPARIN WAS STOPPED.
[2018-06-21] MEDS: ACCU-CHEK COMFORT CURVE STRIP VI SCH ×9 (11:48→22:30)
--- NOTE | 2018-06-21 12:00 | NUR ---
INSULIN REQUESTED FROM PHARMACY AWAITING RECEIPT.
--- NOTE | 2018-06-21 12:00 | NUR ---
INSULIN DRIP STARTED/HEPARIN DRIP DECREASED INSULIN DRIP STARTED BY CHARGE NURSE. HEPARIN DRIP DECREASED AT 1130 FROM 7 UNITS TO 4 UNITS PER HEPARIN PROTOCOL. WILL CONTINUE TO MONITOR.
--- NOTE | 2018-06-21 13:02 | NUR ---
STATUS NOTES THIS NURSE RETURNED FROM LUNCH. PER CHARGE NURSE, PATIENT HEART RHYTHM INCREASED GOING INTO AFIB WITH RVR. PAGED HOSPITALIST/CARDIOLOGY, AWAITING RESPONSE. PATIENT'S SONS AT BEDSIDE AND UPDATED ON PATIENT'S STATUS, ALL VERBALIZED UNDERSTANDING. PATIENT PLACED ON AMIODARONE DRIP ORDERED BY ER PHYSICIAN.
--- NOTE | 2018-06-21 13:31 | NUR ---
INSULIN DRIP DECREASED BS 169, INSULIN DECREASED TO 1.5 UNITS/HR PER PROTOCOL.
[2018-06-21] MEDS: methylPREDNISolone SOD SUCC 40 MG/ML VL IV SCH ×2 (13:37→21:36)
[2018-06-21] MEDS: PANTOPRAZOLE 40 MG/10 ML VIAL IV SCH ×2 (13:38→21:36)
[2018-06-21] MEDS: cefTRIAXone 1GM/50ML D5W 50 ML IV SCH (13:38)
[2018-06-21] MEDS: SODIUM FERR GLUC 62.5MG/5ML 125 MG in SODIUM CHL 0.9% 100 ML IV SCH (15:00)
--- NOTE | 2018-06-21 15:29 | NUR ---
NO CHANGE TO INSULIN DRIP BS 162, NO CHANGE - CONTINUE ON 1.5 UNITS/HR PER PROTOCOL.
[2018-06-21] MEDS: CALCIUM ACETATE 667 MG CAP NG SCH ×2 (15:42→21:37)
--- NOTE | 2018-06-21 15:42 | NUR ---
PHYSICAL THERAPIST AT BEDSIDE RANGE OF MOTION EXERCISES. FAMILY AT BEDSIDE.
--- NOTE | 2018-06-21 16:09 | NUR ---
DR ROSAS AT BEDSIDE UPDATED ON PATIENT'S STATUS. PER DR ROSAS, NO PROCEDURE WILL BE PERFORMED UNTIL PATIENT IS MORE STABLE. DR ROSAS DISCUSSED PLAN OF CARE WITH PATIENT'S SON SILVIA AT BEDSIDE. SILVIA VERBALIZED UNDERSTANDING. FAMILY REMAINS AT BEDSIDE.
--- NOTE | 2018-06-21 16:41 | NUR ---
INSULIN DRIP INCREASED BS 189, INSULIN INCREASED 2.0 UNITS/HR PER PROTOCOL. FAMILY AT BEDSIDE.
--- NOTE | 2018-06-21 17:59 | NUR ---
INSULIN DRIP DECREASED BS 175, INSULIN DECREASED TO 1.5 UNITS/HR PER PROTOCOL.
--- NOTE | 2018-06-21 19:10 | NUR ---
END OF SHIFT PATIENT CARE ENDORSED TO PERSONNEL RESEARCH SCIENTIST RN, VSS AND DOCUMENTED. PENDING LAB RESULTS AND ENDORSED IV CHANGES TO PERSONNEL RESEARCH SCIENTIST RN.
--- NOTE | 2018-06-21 19:15 | NUR ---
Initial Assessment Patient received laying on bed on mechanical ventilation and sedation. Patient is -2 RASS. Opens eyes to stimulation but does not follow commands. Does move all extremities. HOB elevated greater than 30 degrees. Oral care and suction rendered. NGT to right Nare clamped. RN verified proper placement via auscultation with air bolus. ETT secured with [place], Ambu bag at bedside, ventilator plugged into red outlet. RIJ TLC dressing CDI and patent x3 ports-dressing is CDI. left flank nephrostomy tube dressing CDI draining light thierno urine. F/C draining to gravity oliguric draining light thierno urine. Neurovascular status intact with palpable distal pulses skin is cool to touch. SCD's intact to BLE. Bed in lowest position, side rails up, bed brakes set, all alarms audible, in direct view of nurses station. All VSS.
--- NOTE | 2018-06-21 19:15 | NUR ---
Amiodarone gtt rate turned down to 0.5mg/hour per protocol.
[2018-06-21 19:20] LABS: Calcium 6.7 mg/dL (8.5-10.1); Potassium 4.3 mmol/L (3.5-5.1)
[2018-06-21 19:24] LABS: BUN/Creatinine Ratio 13.1
[2018-06-21 19:25] LABS: INR 1.57 (0.9-1.15); Prothrombin Time 16.4 sec (9.27-12.13)
[2018-06-21 19:30] LABS: Partial Thromboplastin Time 70.7 sec (23.78-33.04)
[2018-06-21 20:10] LABS: Lactic Acid w/Reflex 7.8 mmol/L (0.4-2.0)
--- NOTE | 2018-06-21 20:30 | NUR ---
Family at bedside Updated on status and POC. They verbalized understanding. No concerns or complaints voiced from them.
[2018-06-21] MEDS ORDERED: EPOETIN ALFA 10,000 UNIT/1 ML VIAL SC ONE (21:00)
[2018-06-21] MEDS: ATORVASTATIN 20 MG TAB PO SCH (21:37)
[2018-06-21 23:38] LABS: BUN/Creatinine Ratio 13.3; Calcium 6.7 mg/dL (8.5-10.1); Potassium 4.4 mmol/L (3.5-5.1)
[2018-06-21] MEDS: PROPOFOL 100 ML IV SCH (23:58)
[2018-06-22] VITALS (104 sets, daily range): BP systolic 106–127; BP diastolic 51–79
--- NOTE | 2018-06-22 01:21 | NUR ---
Lab call Coag panel not released yet and was sent at 2315-[employer] and they state will release kilo.
[2018-06-22] MEDS: ACCU-CHEK COMFORT CURVE STRIP VI SCH ×12 (01:30→23:38)
--- NOTE | 2018-06-22 01:30 | NUR ---
Heparin gtt PTT is now results. Heparin gtt increased by 3ml and 5000 unit bolus administered.
[2018-06-22 01:31] LABS: INR 1.57 (0.9-1.15); Partial Thromboplastin Time 34.4 sec (23.78-33.04); Prothrombin Time 16.4 sec (9.27-12.13)
[2018-06-22] MEDS: LINEZOLID 600MG/300ML 300 ML IV SCH ×2 (01:53→13:00)
[2018-06-22] MEDS: MIDAZOLAM DRIP 50 mg/50mL 50 ML IV SCH ×3 (01:58→21:17)
--- NOTE | 2018-06-22 04:00 | NUR ---
Bed bath Patient given CHG bath. New optifoam gentle adhesive dressing applied to sacral area to prevent friction and shear. Patient tolerated well.
[2018-06-22 05:47] LABS: Albumin 2.3 g/dL (3.4-5.0); BUN/Creatinine Ratio 14.7; Calcium 6.4 mg/dL (8.5-10.1); Potassium 4.2 mmol/L (3.5-5.1)
[2018-06-22 05:50] LABS: INR 1.58 (0.9-1.15); Partial Thromboplastin Time 39.9 sec (23.78-33.04); Prothrombin Time 16.5 sec (9.27-12.13)
[2018-06-22 05:51] LABS: Basophils # (auto) 0 uL; Eosinophils # (auto) 0 uL; Hematocrit 25.7 % (36.0-46.0); Hemoglobin 8.5 g/dL (12.2-16.2); Lymphocytes # (auto) 0.5 uL; Mean Corpuscular Hemoglobin 32.4 pg (28.0-32.0); Mean Corpuscular Hgb Conc. 33.2 g/dL (32.0-36.0); Mean Corpuscular Volume 97.5 fL (80.0-100.0); Monocytes # (auto) 0.4 uL; Monocytes % (auto) 2.7 % (0.0-12.0); Neutrophils # (auto) 15.3 uL; Neutrophils % (auto) 94.3 % (37.0-80.0); Nucleated Red Blood Cells % 2.2 %; Platelet Count (auto) 68 10^3/uL (140-450); Red Blood Cells 2.63 10^6/uL (4.0-5.20); Red Cell Distribution Width 14.6 % (11.8-14.3); White Blood Cell 16.3 10^3/uL (4.4-10.8)
[2018-06-22] MEDS: ALBUTEROL SULF 2.5 MG/0.5ML(0.5%) NEB SOLN NEB SCH ×4 (05:52→23:37)
--- NOTE | 2018-06-22 05:52 | NUR ---
Respiratory note: PT RECEIVED ON RENTAL VENT # [id number], PLUGGED INTO A RED OUTLET WITH AMBU BAG/MASK AT BEDSIDE PLUGGED INTO PROPER O2 SOURCE. ALARMS ARE PROPERLY SET, FUNCTIONING, AND AUDIBLE. ETT SECURED WITH AM ANCHOR FAST. ETT MOVED FROM RIGHT TO LEFT. LIPS APPEAR CHAPPED.NO FURTHER LIP BREAK DOWN NOTED. BILATERAL BS ARE CLEAR THROUGHOUT, SUCTION NOT INDICATED AT THIS TIME. SKIN IS WARM AND DRY TO THE TOUCH WITH NO EDEMA NOTED ON ANY APPENDICULARS. MED NEB TX GIVEN INLINE,TOLERATED WELL. POC MAINTAIN ADEQUATE OXYGENATION. VENTILATION, AND PULMONARY HYGIENE.
[2018-06-22 06:05] LABS: Bilirubin, Total 0.6 mg/dL (0.2-1.0); Total Protein 5.1 g/dL (6.4-8.2)
[2018-06-22] MEDS: SODIUM BICARBONATE 650 MG TAB PO SCH ×3 (06:14→21:37)
[2018-06-22] MEDS: CALCIUM ACETATE 667 MG CAP NG SCH ×3 (06:14→21:37)
--- NOTE | 2018-06-22 06:30 | NUR ---
Heparin Gtt PTT came back. No bolus and increase by 2ml/Hour.
--- NOTE | 2018-06-22 07:00 | NUR ---
Report given No changes or incidents to report. Patient in stable condition. Care endorsed to day shift RN.
--- NOTE | 2018-06-22 07:30 | NUR ---
ASSESS- PT. LYING IN BED ON VENT SIZE # 8.0 ET, 23 AT THE LIP, AC-14, TV-500, PEEP-5, FIO2-30%. LUNGS CLEAR LUCERO. INSPIRATORY AND EXPIRATORY, DIMINISHED BASES LUCERO. PT. HAS GAG/COUGH REFLEX. RESPONDS TO PAINFUL/TACTILE STIMULI. MOVES ARMS LUCERO., WEAK. LEGS WITH SEVERE WEAKNESS LUCERO. ON VERSED GTT. AT 5MG./HR. ABD. SOFT, FLAT. BOWEL SOUNDS ALL FOUR QUADRANTS. NGT RT. NARE INTACT. PT. IS NPO. F/C TO GRAVITY WITH CLEAR LT. DRE URINE. NEPHROSTOMY TUBE LT. FLANK AREA WITH CLEAR LT. DRE URINE. TRACEY CATHETER LT. IJ INTACT. TLC RT. IJ INTACT. RADIAL PULSES STRONG, PALPABLE LUCERO. PEDAL PULSES STRONG, PALPABLE LUCERO. SCD'S LUCERO. LE. HEPARIN GTT. AT 900 UNITS/HR. NO SIGNS OF BLEEDING. AMIODARONE GTT. AT 0.5 MG./HR. SR WITHOUT ECTOPY. RECTAL PROBE IN PLACE, TEMP 99.5. SKIN INTACT. PT. IS ON INSULIN GTT. PER
[2018-06-22] MEDS: PROPOFOL 100 ML IV SCH ×2 (08:00→23:58)
[2018-06-22] MEDS: fentaNYL Drip 2500mCg/250mlNS 250 ML IV SCH ×3 (08:00→23:58)
[2018-06-22] MEDS: VASOPRESSIN 50 UNITS in D5W 5% 247.5 ML IV SCH (08:15)
[2018-06-22] MEDS ORDERED: LIDOCAINE HCL 100 MG/5ML (2%) SYRG INJ IV ONE (09:10)
[2018-06-22] MEDS ORDERED: SODIUM BICARBONATE 8.4% INJ 50ML SYRINGE IV ONE (09:10)
[2018-06-22] MEDS ORDERED: MAGNESIUM SULF 50% 40 MEQ/10 ML VL IV ONE (09:10)
[2018-06-22] MEDS: NOREPINEPHRINE BITARTRATE 32 MG in D5W 5% 218 ML IV SCH (09:37)
[2018-06-22] MEDS: methylPREDNISolone SOD SUCC 40 MG/ML VL IV SCH ×2 (09:45→21:37)
[2018-06-22] MEDS: cefTRIAXone 1GM/50ML D5W 50 ML IV SCH (09:45)
[2018-06-22] MEDS: METOPROLOL SUCCINATE XL 50 MG TAB PO SCH (09:45)
[2018-06-22] MEDS: PANTOPRAZOLE 40 MG/10 ML VIAL IV SCH ×2 (09:45→21:36)
--- NOTE | 2018-06-22 09:45 | NUR ---
DR. LOVE Provider/Hospitalist at bedside. GAVE UPDATE ON PT. NEW ORDERS RECEIVED.
--- NOTE | 2018-06-22 10:30 | NUR ---
ALEXANDER AT BS FOR US BIL. RASMUSSEN
--- NOTE | 2018-06-22 10:43 | NUR ---
DR. TIPTON Provider/Hospitalist at bedside. GAVE UPDATE ON PT. INFORMED OF PLATELETS OF 68 THIS AM. ORDER TO D'C HEPARIN GTT.
[2018-06-22] MEDS ORDERED: INSULIN LANTUS (GLARGINE) 1 /0.01ml (100units/ml) SC ONE (11:15)
[2018-06-22] MEDS: AMIODARONE HCL 900 MG in DEXTROSE 500 ML IV SCH (11:20)
--- NOTE | 2018-06-22 11:28 | NUR ---
DR. MUHAMMAD Provider/Hospitalist at bedside. GAVE UPDATE ON PT. NEW ORDERS RECEIVED.
[2018-06-22] MEDS ORDERED: InsuLIN R (HUMAN) 100 UNITS in SODIUM CHL 0.9% 99 ML IV SCH (11:30)
[2018-06-22] MEDS: SODIUM FERR GLUC 62.5MG/5ML 125 MG in SODIUM CHL 0.9% 100 ML IV SCH (11:36)
--- NOTE | 2018-06-22 12:00 | NUR ---
Family updated on pt status Family of MAXI RODRIGUEZ updated on patient's status and condition. All questions and concerns addressed. AND FAMILY verbalized understanding. VISITING AT THE BS.
--- NOTE | 2018-06-22 12:48 | NUR ---
Nutrition Follow-up Notes Wt.: 54.9 kg Pt was intubated, no immediate family member at bedside during rounds this morning. Pt's currently off Propofol when rounded had dialysis (06/21/18), currently NPO with no new diet order Est. Needs reassessed based on CBWt.(54 kg): 5962-8148 kcal (25-30 kcal/kgBW), 65-86 gms pro (1.2-1.6 gms/kgBW r/t ESRD on HD, severe hypoalbuminemia). Will continue to monitor pertinent labs and reassess nutrient needs prn. Labs: BUN 57 H, CREAT 3.88 H, GARETH/LT 4005/3274 H, GLU 235 H, CA 6.4 L, ALB 2.3 L. Skin: Didier scale 12, high risk, pt's left posterior flank urostomy tube intact per rehabilitation services coordinator. GI: Pt had 1 BM 06/13/18 per rehabilitation services coordinator. PES: Altered nutrition related lab values r/t current/chronic medical condition aeb elev RFT, mild hypoalb, hyperglycemia, hypocalcemia Increased nutrient needs r/t acute/chronic medical condition aeb ESRD on HD, severe hypoalbuminemia, intubated, sedated, NPO. Will continue to monitor NPO status, skin status, pertinent labs and weight trend. F/u in 2 to 3 days. Rec.: 1.) If still NPO in next 48 hrs, consider alternate/EN support with formula choice of Nepro Carb Steady @ 30 ml/hr as tolerated while on current rate of Propofol. 2.) If Albumin level continues trending down, consider Prostat 1 pkt BID. 3.) Resume gradually to oral diet when medically appropriate. 4.) Refer pt to CDE/RD for further nutrition education and weight monitoring upon discharge. 5.) Continue current plan of care.
[2018-06-22] MEDS ORDERED: DEXTROSE (50%) 50ML SYRG IV PRN (13:00)
--- NOTE | 2018-06-22 13:40 | NUR ---
INSULIN GTT. D'C'D AFTER 2HRS. OF RECEIVING LANTUS DOSE. ACCUCHECKS Q4HR. NOW WITH MOD. DOSE SLIDING SCALE.
--- NOTE | 2018-06-22 16:00 | NUR ---
FAMILY VISITING AT THE .
[2018-06-22] MEDS: InsuLIN REG 1unit/0.01ml Soln (100units/ml) SC SCH ×3 (16:17→23:39)
--- NOTE | 2018-06-22 19:15 | NUR ---
Opening shift note Assumed care, laying on bed, still on vent, sedation with versed @ 7mg/hr, still on amiodarone drip @ 0.5 mcg/min but opens her eyes occasionally when her name was called but doesn't sustain, able to move upper extremities. Central line, maty catheter intact, nephrostomy tube with light thierno output, bejarano catheter intact. Will continue care.
[2018-06-22] MEDS: ATORVASTATIN 20 MG TAB PO SCH (21:37)
--- NOTE | 2018-06-22 23:00 | NUR ---
Family at bedside
[2018-06-23] VITALS (103 sets, daily range): BP systolic 111–140; BP diastolic 60–83
[2018-06-23] MEDS: LINEZOLID 600MG/300ML 300 ML IV SCH (00:02)
--- NOTE | 2018-06-23 03:00 | NUR ---
Dressing of righ IJ central line done aseptically.
[2018-06-23] MEDS: ACCU-CHEK COMFORT CURVE STRIP VI SCH ×5 (04:00→19:47)
[2018-06-23] MEDS: InsuLIN REG 1unit/0.01ml Soln (100units/ml) SC SCH ×5 (04:00→19:47)
--- NOTE | 2018-06-23 04:00 | NUR ---
Patient bathe/linen change Patient given complete bath. Skin integrity assessed for any changes. Linens changed. Patient repositioned for comfort.
--- NOTE | 2018-06-23 04:10 | NUR ---
Elimination Moderate amount of soft, brown stools noted. Cleansed and kept dry and comfortable.
[2018-06-23 04:39] LABS: Albumin 2.4 g/dL (3.4-5.0); BUN/Creatinine Ratio 17.5; Calcium 6.6 mg/dL (8.5-10.1); Potassium 4.6 mmol/L (3.5-5.1)
[2018-06-23 04:50] LABS: Bilirubin, Total 0.8 mg/dL (0.2-1.0); Total Protein 5.1 g/dL (6.4-8.2)
[2018-06-23 04:58] LABS: Basophils # (auto) 0 uL; Basophils % (auto) 0.2 % (0.0-2.0); Eosinophils # (auto) 0 uL; Hematocrit 24.8 % (36.0-46.0); Hemoglobin 8.3 g/dL (12.2-16.2); Lymphocytes # (auto) 0.5 uL; Lymphocytes % (auto) 3.4 % (10.0-50.0); Mean Corpuscular Hemoglobin 32.7 pg (28.0-32.0); Mean Corpuscular Hgb Conc. 33.4 g/dL (32.0-36.0); Monocytes # (auto) 0.4 uL; Monocytes % (auto) 2.3 % (0.0-12.0); Neutrophils # (auto) 15.2 uL; Neutrophils % (auto) 94.1 % (37.0-80.0); Nucleated Red Blood Cells % 2.8 %; Platelet Count (auto) 53 10^3/uL (140-450); Red Blood Cells 2.53 10^6/uL (4.0-5.20); Red Cell Distribution Width 14.5 % (11.8-14.3); White Blood Cell 16.2 10^3/uL (4.4-10.8)
[2018-06-23] MEDS: CALCIUM ACETATE 667 MG CAP NG SCH ×3 (05:47→22:00)
[2018-06-23] MEDS: SODIUM BICARBONATE 650 MG TAB PO SCH ×3 (05:47→22:00)
[2018-06-23] MEDS: ALBUTEROL SULF 2.5 MG/0.5ML(0.5%) NEB SOLN NEB SCH ×3 (05:53→18:25)
--- NOTE | 2018-06-23 07:25 | NUR ---
Closing shift note Laying on bed with no signs of distress, still on vent and sedation. Report given to Indira WALSH.
--- NOTE | 2018-06-23 07:30 | NUR ---
ASSESS- PT. LYING IN BED ON VENT SIZE# 8.0 ET, 23 AT THE LIP, AC-14, TV-500, PEEP-5, FIO2-30%. LUNGS COARSE LUCERO. INSPIRATORY AND EXPIRATORY. PT. HAS GAG/COUGH REFLEX. ON VERSED GTT. AT 7MG./HR. RESPONDS TO PAINFUL/TACTILE STIMULI. NO MOVEMENT OF EXTREMITIES SEEN. REMOVED LUCERO. HAND MITTENS. NGT RT. NARE INTACT, CLAMPED. PT. IS NPO. ABD. SOFT, FLAT. BOWEL SOUNDS ALL FOUR QUADRANTS. F/C TO GRAVITY WITH CLEAR LT. DRE URINE. NEPHROSTOMY TUBE LT. FLANK WITH LT. DRE URINE. RADIAL PULSES STRONG, PALPABLE LUCERO. PEDAL PULSES STRONG, PALPABLE LUCERO. NO EDEMA. SCD'S LUCERO. LE. SKIN INTACT. OPTIFOAM TO SACRUM PREVENTATIVE. RECTAL PROBE IN PLACE. TRACEY CATHETER INTACT LT. IJ. TLC RT. IJ INTACT. ON AMIODARONE GTT. AT 0.5 MG./HR. SR WITHOUT ECTOPY.
[2018-06-23] MEDS: VASOPRESSIN 50 UNITS in D5W 5% 247.5 ML IV SCH (08:15)
[2018-06-23] MEDS: cefTRIAXone 1GM/50ML D5W 50 ML IV SCH (09:34)
[2018-06-23] MEDS: methylPREDNISolone SOD SUCC 40 MG/ML VL IV SCH ×2 (09:34→22:00)
[2018-06-23] MEDS: INSULIN LANTUS (GLARGINE) 1 /0.01ml (100units/ml) SC SCH (09:35)
[2018-06-23] MEDS: PANTOPRAZOLE 40 MG/10 ML VIAL IV SCH ×2 (09:35→22:00)
[2018-06-23] MEDS: NOREPINEPHRINE BITARTRATE 32 MG in D5W 5% 218 ML IV SCH (09:37)
[2018-06-23] MEDS: METOPROLOL SUCCINATE XL 50 MG TAB PO SCH (10:00)
[2018-06-23] MEDS: AMIODARONE HCL 900 MG in DEXTROSE 500 ML IV SCH ×2 (10:00→14:33)
--- NOTE | 2018-06-23 10:25 | NUR ---
DR. MUHAMMAD Provider/Hospitalist at bedside. GAVE UPDATE ON PT. NEW ORDERS RECEIVED.
--- NOTE | 2018-06-23 11:00 | NUR ---
Family updated on pt status Family of MAXI RODRIGUEZ updated on patient's status and condition. All questions and concerns addressed. FAMILY verbalized understanding. VISITING AT THE BS.
[2018-06-23] MEDS: SODIUM FERR GLUC 62.5MG/5ML 125 MG in SODIUM CHL 0.9% 100 ML IV SCH (11:47)
[2018-06-23] MEDS: Nepro With Carb Steady 1 Liter Bottle GT SCH (13:15)
--- NOTE | 2018-06-23 13:15 | NUR ---
NGT placement verified by aspiration of stomach contents, residual check, or air auscultation. Tube feeding started per MD order.
[2018-06-23] MEDS: MIDAZOLAM DRIP 50 mg/50mL 50 ML IV SCH (14:32)
--- NOTE | 2018-06-23 15:00 | NUR ---
FAMILY HAS BEEN VISITING AT BS.
--- NOTE | 2018-06-23 17:00 | NUR ---
DR. ECHEVARRIA Provider/Hospitalist at bedside. NEW ORDERS RECEIVED.
--- NOTE | 2018-06-23 18:00 | NUR ---
AUSCULTATED GOOD PLACEMENT WITH NGT. NO EMESIS. CHECKED RESIDUAL 10 CC. CONTINUING NEPHRO TF AT 10 CC/HR. WITH GOAL RATE OF 30 CC/HR.
--- NOTE | 2018-06-23 18:38 | NUR ---
WOUND CARE NOTE: Added patient in wound care monitoring list due to low Didier of 13 and intubation status, putting patient to high risk for skin breakdown. Patient is 67 years old female with admitting diagnosis of Chest Pain.Patient is resting in ICU premium bed in Rm. 102. Patient is intubated and mechanically ventilated. Patient appears to be in no pain using [place]ron[place] Coello Faces Pain Scale. Patient is wound free other than L flank nephrostomy tube site. No pressure injury related issue noted. Patient's family at bedside. RECOMMENDATION: BID/PRN cleaning and application of Barrier cream to sacral/buttocks as preventative per MD order, frequent turning and repositioning schedule as condition permits, redistribute pressure points with pillows, elevate heels on pillows,continue monitoring by wound care while patient is mechanically ventilated.
--- NOTE | 2018-06-23 18:40 | NUR ---
DR. LOVE Provider/Hospitalist at bedside.
--- NOTE | 2018-06-23 19:15 | NUR ---
OPEN ASSUMED CARE, FULL ASSESSMENT DONE; SEE INTERVENTIONS. VERSED AND AMIO INFUSING PER IV SPREADSHEET TO RIGHT IJ TLC. LEFT IJ TRACEY IN PLACE. GIL AND LEFT NEPHROSTOMY TUBE IN PLACE, DRAINING TO GRAVITY. NGT PLACEMENT VERIFIED VIA AUSCULTATION AND ASPIRATION OF APPROX. 5 ML FEEDINGS. VITAL SIGNS STABLE. CONTINUE CARE.
--- NOTE | 2018-06-23 20:00 | NUR ---
FEEDINGS INCREASED TO 20 ML/HR.
[2018-06-23] MEDS: ATORVASTATIN 20 MG TAB PO SCH (22:00)
[2018-06-23] MEDS: PROPOFOL 100 ML IV SCH (23:58)
[2018-06-23] MEDS: fentaNYL Drip 2500mCg/250mlNS 250 ML IV SCH (23:58)
[2018-06-24] VITALS (108 sets, daily range): BP systolic 72–152; BP diastolic 59–91
--- NOTE | 2018-06-24 | NUR ---
RESIDUALS GASTRIC RESIDUALS APPROX. 40 ML, WILL DECREASE RATE TO 10 ML/HR AND RE-ASSESS.
[2018-06-24] MEDS: ALBUTEROL SULF 2.5 MG/0.5ML(0.5%) NEB SOLN NEB SCH ×5 (00:19→23:41)
--- NOTE | 2018-06-24 02:00 | NUR ---
RESIDUALS TUBE FEEDING RESIDUALS 40 ML, CONTINUE AT 10 ML/HR.
[2018-06-24] MEDS: InsuLIN REG 1unit/0.01ml Soln (100units/ml) SC SCH ×6 (03:30→23:56)
[2018-06-24] MEDS: ACCU-CHEK COMFORT CURVE STRIP VI SCH ×7 (03:30→23:56)
--- NOTE | 2018-06-24 04:03 | NUR ---
CARES FULL BATH AND LINEN CHANGE DONE, NO NEW SKIN ISSUES ASSESSED.
[2018-06-24 04:11] LABS: Eosinophils # (auto) 0 uL; Hemoglobin 8.1 g/dL (12.2-16.2)
[2018-06-24 04:13] LABS: Basophils # (auto) 0 uL; Hematocrit 24.2 % (36.0-46.0); Lymphocytes # (auto) 0.2 uL; Lymphocytes % (auto) 1.5 % (10.0-50.0); Mean Corpuscular Hgb Conc. 33.6 g/dL (32.0-36.0); Mean Corpuscular Volume 98.3 fL (80.0-100.0); Monocytes # (auto) 0.2 uL; Monocytes % (auto) 1.9 % (0.0-12.0); Neutrophils # (auto) 12.3 uL; Neutrophils % (auto) 96.6 % (37.0-80.0); Platelet Count (auto) 42 10^3/uL (140-450); Red Blood Cells 2.47 10^6/uL (4.0-5.20); Red Cell Distribution Width 14.4 % (11.8-14.3); White Blood Cell 12.8 10^3/uL (4.4-10.8)
[2018-06-24 04:22] LABS: Albumin 2.5 g/dL (3.4-5.0); Calcium 6.8 mg/dL (8.5-10.1); Potassium 4.4 mmol/L (3.5-5.1)
[2018-06-24 04:31] LABS: BUN/Creatinine Ratio 20.1; Bilirubin, Total 0.7 mg/dL (0.2-1.0); Total Protein 5.2 g/dL (6.4-8.2)
[2018-06-24] MEDS: SODIUM BICARBONATE 650 MG TAB PO SCH ×3 (05:55→21:33)
[2018-06-24] MEDS: CALCIUM ACETATE 667 MG CAP NG SCH ×3 (05:55→21:33)
--- NOTE | 2018-06-24 06:52 | NUR ---
DIALYSIS HD RN AT BEDSIDE.
--- NOTE | 2018-06-24 07:30 | NUR ---
REPORT RECEIVED PATIENT VENTED/ SEDATED, TOLERATING VENTILATOR WELL. DIALYSIS NURSE AT BEDSIDE WITH DIALYSIS IN PROGRESS. VSS.
[2018-06-24] MEDS: VASOPRESSIN 50 UNITS in D5W 5% 247.5 ML IV SCH (08:15)
[2018-06-24] MEDS ORDERED: CATHFLO ACTIVASE (ALTEPLASE) 2 MG VIAL IV ONE (08:45)
--- NOTE | 2018-06-24 09:00 | NUR ---
DIALYSIS/ ACCESS DIALYSIS NURSE STATED 2 HR INTO DIALYSIS CATHETER READING HIGH PRESSURE. CATH GUSTAVO ORDERED BY FIGHTING VEHICLE SYSTEMS MAINTAINER. CATH GUSTAVO ADMINISTERED BY DIALYSIS NURSE. DIALYSIS STOPPED WITH 700ML REMOVED.
[2018-06-24] MEDS: NOREPINEPHRINE BITARTRATE 32 MG in D5W 5% 218 ML IV SCH (09:37)
[2018-06-24] MEDS: INSULIN LANTUS (GLARGINE) 1 /0.01ml (100units/ml) SC SCH (10:00)
[2018-06-24] MEDS: cefTRIAXone 1GM/50ML D5W 50 ML IV SCH (10:00)
[2018-06-24] MEDS: PANTOPRAZOLE 40 MG/10 ML VIAL IV SCH ×2 (10:00→21:33)
[2018-06-24] MEDS: methylPREDNISolone SOD SUCC 40 MG/ML VL IV SCH ×2 (10:00→21:32)
[2018-06-24] MEDS: METOPROLOL SUCCINATE XL 50 MG TAB PO SCH (10:00)
--- NOTE | 2018-06-24 10:00 | NUR ---
ROUNDS DR. MUHAMMAD AT BEDSIDE. MD UPDATED FAMILY ON PATIENTS CONDITION AND PLAN OF CARE. NEW ORDERS IN PLACE. PT TO REMAINS NPO FOR POSSIBLE LHC. FEEDINGS OFF.
--- NOTE | 2018-06-24 11:16 | NUR ---
WOUND CARE NOTE: New wound care request received regarding skin issue to patient's sacral/coccyx area that are noted by bedside nurse upon assessment. Bedside nurse took photograph of patient's sacrum upon discovery for reference. Patient continue resting in ICU premium bed in Rm 102. She's intubated and mechanically ventilated. Patient appears to be in no pain using Tron[place]o Coello Faces Pain Scale. Skin assessment done with the assistance of patient's nurse, JILLIAN Peck. Noted 1.5x1cm non-blanchable redness (Stage 1 pressure injury) to patient's coccyx which she reported where rectal probe and tape at initially. Patient is receiving BID/PRN cleaning and application of Z Guard cream to sacral/buttocks. albert care given, applied Z Guard cream and covered with Opti foam sacral dressing. Patient tolerated well. JILLIAN Peck at bedside. RECOMMENDATION:Continue with BID/PRN cleaning and application of Z GUARD cream to sacral/buttocks per MD order, frequent repositioning of tubes, continue with skin/wound plan of care, continue monitoring by wound care while patient is hospitalized. Addendum: 06/24/18 at 1733 by Genesis Epstein RN Amended: Links added.
--- NOTE | 2018-06-24 11:22 | NUR ---
Nutrition Follow-up Notes Wt.: 56.2 kg Pt's intubated, sedated, no immediate family member at bedside during rounds earlier. Pt's had dialysis this morning, currently NPO with EN support, restarted this morning d/t high residuals, per nursing. Pt's currently on Nepro Carb Steady @ 10 ml/hr providing 432 kcal, 19 gms pro and 174 ml free water. Pt inadequate EN support d/t low initiation rate delivery of concentrated formula aeb 27% to 32% of est caloric needs and 22% to 29% of protein to needs. Est. Needs reassessed based on CBWt.(54 kg): 6881-5181 kcal (25-30 kcal/kgBW), 65-86 gms pro (1.2-1.6 gms/kgBW r/t ESRD on HD, severe hypoalbuminemia). Will continue to monitor pertinent labs and reassess nutrient needs prn. Labs: Gluc 230 H, Na 130 L, Cl 90 L, BUN 107 H, Cr 5.33 H, AST/ALT 399/1865 H, Ca 6.8 L, Tpro 5.2 L, Alb 3.2 L. Skin: Didier scale 13, mod risk, pt's skin intact per rubber calender helper. GI: Pt had 1 BM 06/23/18 per rubber calender helper. PES: Altered nutrition related lab values r/t current/chronic medical condition aeb elev RFT, mild hypoalb, hyperglycemia, hypocalcemia Increased nutrient needs r/t acute/chronic medical condition aeb ESRD on HD, severe hypoalbuminemia, intubated, sedated, NPO. Will continue to monitor NPO status, EN tolerance, skin status, pertinent labs and weight trend. F/u in 2 to 3 days. Rec.: 1.) If still NPO with EN support, consider gradual increase on feeding rate of Nepro Carb Steady to 35 ml/hr as tolerated. 2.) If Albumin level continues trending down, consider Prostat 1 pkt BID. 3.) Resume gradually to oral diet when medically appropriate. 4.) Refer pt to CDE/RD for further nutrition education and weight monitoring upon discharge. 5.) Continue current plan of care.
--- NOTE | 2018-06-24 11:55 | NUR ---
PAYROLL BENEFITS ADMINISTRATOR PAYROLL BENEFITS ADMINISTRATOR CALLED STATING PATIENT IS SCHEDULED TODAY FOR [facility] APPROX 1400. PAYROLL BENEFITS ADMINISTRATOR NURSE AWARE OF DIALYSIS NOT COMPLETED AND POSSIBLY WILL BE COMPLETED LATER TODAY BUT UNSURE. DIALYSIS NURSE TO BE CALLED AND CLARIFIED. Addendum: 06/24/18 at 1159 by Liv Stanford RN SON AT BEDSIDE AWARE.
--- NOTE | 2018-06-24 12:00 | NUR ---
Cooling Measures applied. Patient currently has temp of 99.1 , cooling measures in place.
[2018-06-24] MEDS: SODIUM FERR GLUC 62.5MG/5ML 125 MG in SODIUM CHL 0.9% 100 ML IV SCH (13:47)
[2018-06-24 14:07] LABS: Hepatitis A Ab IgM Negative
[2018-06-24 14:08] LABS: Hepatitis B Core IgM Negative; Hepatitis B Surface Antigen Negative (Negative); Hepatitis C Antibody Negative (Negative)
--- NOTE | 2018-06-24 14:15 | NUR ---
ELECTRICAL INSPECTOR DR. ECHEVARRIA AT BEDSIDE. UPDATED FAMILY ON PLAN OF CARE. STATING WE ARE WAITING FOR REMOTELY PILOTED VEHICLE CONTROLLER TODAY, DIALYSIS WILL BE COMPLETED LATER TONIGHT AFTER PROCEDURE OR EARLY IN A.M. TOMORROW. REMOTELY PILOTED VEHICLE CONTROLLER AWARE.
--- NOTE | 2018-06-24 14:20 | NUR ---
[facility] HELD PUBLIC SAFETY TELECOMMUNICATOR CALLED STATING PROCEDURE WILL BE HELD AND TO BE RESCHEDULED FOR 06/25 IN THE AFTERNOON DUE TO HEPARIN SENSITIVITY AND CURRENT PLT COUNT. FAMILY TO BE NOTIFIED. DIALYSIS NURSE CALLED, CALLBACK NUMBER LEFT. Addendum: 06/24/18 at [address] RN [address] MUHAMMAD NOTIFIED. NEW ORDER IN PLACE.
--- NOTE | 2018-06-24 14:54 | NUR ---
AWAITING NEW TYPE AND SCREEN. BLOOD BANK AWARE.
--- NOTE | 2018-06-24 14:55 | NUR ---
TUBE FEEDINGS RESTARTED AT 10ML AFTER PLACEMENT VERIFICATION.
--- NOTE | 2018-06-24 14:55 | NUR ---
DIALYSIS NURSE AWARE OF RESCHEDULED [facility] FOR TOMORROW AFTERNOON. DIALYSIS TO BE COMPLETED TOMORROW. Addendum: 06/24/18 at 1631 by Liv Stanford RN KIRILL MITCHELL.
[2018-06-24] MEDS ORDERED: MORPHINE SULFATE 4 MG/ML SYR/VIAL IV PRN (15:00)
[2018-06-24] MEDS ORDERED: HYDROcodone-ACET 5/325MG TAB PO PRN (15:00)
--- NOTE | 2018-06-24 17:08 | NUR ---
PLATELETS PENDING. NOT YET AVAILABLE.
--- NOTE | 2018-06-24 18:08 | NUR ---
PLATELETS PENDING. NOT YET AVAILABLE.
--- NOTE | 2018-06-24 18:19 | NUR ---
GREENS PLANTER DR. ORONA UPDATED ON PATIENTS STATUS/ VENT CHANGES. NO NEW ORDERS.
--- NOTE | 2018-06-24 18:53 | NUR ---
PLATELETS PENDING. NOT YET AVAILABLE.
--- NOTE | 2018-06-24 19:15 | NUR ---
OPEN ASSUMED CARE, FULL ASSESSMENT DONE; SEE INTERVENTIONS. NGT TO RIGHT NARE, PLACEMENT VERIFIED VIA AUSCULTATION AND ASPIRATION OF APPROX. 10 ML TUBE FEEDING RESIDUAL, INCREASED RATE TO 15 ML/HR. VITAL SIGNS STABLE; AMIO INFUSING AT 0.5 MG/MIN. ORAL CARE AND REPOSITIONING DONE. CONTINUE CARE.
--- NOTE | 2018-06-24 20:18 | NUR ---
FAMILY PT'S SON AND DAUGHTER IN LAW AT BEDSIDE, UPDATE PROVIDED.
--- NOTE | 2018-06-24 20:55 | NUR ---
PLATELETS UNIT PLATELETS VERIFIED AND HUNG PER ORDERS.
[2018-06-24] MEDS: AMIODARONE HCL 900 MG in DEXTROSE 500 ML IV SCH (21:00)
[2018-06-24] MEDS: MIDAZOLAM DRIP 50 mg/50mL 50 ML IV SCH (21:00)
[2018-06-24] MEDS ORDERED: EPOETIN ALFA 10,000 UNIT/1 ML VIAL SC ONE (21:00)
[2018-06-24] MEDS: ATORVASTATIN 20 MG TAB PO SCH (21:33)
[2018-06-24] MEDS: fentaNYL Drip 2500mCg/250mlNS 250 ML IV SCH (23:58)
[2018-06-24] MEDS: PROPOFOL 100 ML IV SCH (23:58)
[2018-06-25] VITALS (105 sets, daily range): BP systolic 15–181; BP diastolic 8–106
--- NOTE | 2018-06-25 | NUR ---
RESIDUALS GASTRIC RESIDUALS APPROX. 60 MLs, PLACED FEEDINGS ON HOLD.
--- NOTE | 2018-06-25 02:00 | NUR ---
RESIDUALS TUBE FEEDING RESIDUALS APPROX. 10 ML, RESTARTED FEEDINGS AT 10 ML/HR
[2018-06-25 04:16] LABS: Potassium 4.5 mmol/L (3.5-5.1)
[2018-06-25 04:17] LABS: Basophils # (auto) 0 uL; Eosinophils # (auto) 0 uL; Hemoglobin 8.3 g/dL (12.2-16.2); Monocytes # (auto) 0.3 uL
[2018-06-25 04:19] LABS: Basophils % (auto) 0.4 % (0.0-2.0); Hematocrit 24.8 % (36.0-46.0); Lymphocytes # (auto) 0.2 uL; Lymphocytes % (auto) 1.5 % (10.0-50.0); Mean Corpuscular Hemoglobin 32.8 pg (28.0-32.0); Mean Corpuscular Hgb Conc. 33.4 g/dL (32.0-36.0); Mean Corpuscular Volume 98.2 fL (80.0-100.0); Monocytes % (auto) 2.6 % (0.0-12.0); Neutrophils # (auto) 11.9 uL; Neutrophils % (auto) 95.5 % (37.0-80.0); Platelet Count (auto) 74 10^3/uL (140-450); Red Blood Cells 2.52 10^6/uL (4.0-5.20); Red Cell Distribution Width 14.3 % (11.8-14.3); White Blood Cell 12.4 10^3/uL (4.4-10.8)
[2018-06-25] MEDS: InsuLIN REG 1unit/0.01ml Soln (100units/ml) SC SCH ×7 (04:21→23:48)
[2018-06-25] MEDS: ACCU-CHEK COMFORT CURVE STRIP VI SCH ×6 (04:21→23:48)
[2018-06-25 04:27] LABS: Albumin 2.6 g/dL (3.4-5.0); BUN/Creatinine Ratio 22.7; Bilirubin, Total 0.7 mg/dL (0.2-1.0); Calcium 6.8 mg/dL (8.5-10.1); Total Protein 5.6 g/dL (6.4-8.2)
--- NOTE | 2018-06-25 05:04 | NUR ---
CHG BATH GIVEN, PT TOLERATED WELL. VITAL SIGNS STABLE.
[2018-06-25] MEDS: SODIUM BICARBONATE 650 MG TAB PO SCH ×3 (05:53→21:55)
[2018-06-25] MEDS: CALCIUM ACETATE 667 MG CAP NG SCH ×3 (05:53→21:55)
[2018-06-25] MEDS: ALBUTEROL SULF 2.5 MG/0.5ML(0.5%) NEB SOLN NEB SCH ×3 (06:08→18:34)
--- NOTE | 2018-06-25 07:16 | NUR ---
REPORT CARE ENDORSED TO JILLIAN ELAM
[2018-06-25] MEDS: VASOPRESSIN 50 UNITS in D5W 5% 247.5 ML IV SCH (08:15)
[2018-06-25] MEDS: cefTRIAXone 1GM/50ML D5W 50 ML IV SCH (08:32)
[2018-06-25 08:42] LABS: INR 1.29 (0.9-1.15); Prothrombin Time 13.6 sec (9.27-12.13)
[2018-06-25] MEDS: NOREPINEPHRINE BITARTRATE 32 MG in D5W 5% 218 ML IV SCH (09:37)
[2018-06-25] MEDS: INSULIN LANTUS (GLARGINE) 1 /0.01ml (100units/ml) SC SCH (10:09)
[2018-06-25] MEDS: PANTOPRAZOLE 40 MG/10 ML VIAL IV SCH ×2 (10:10→21:55)
[2018-06-25] MEDS: METOPROLOL SUCCINATE XL 50 MG TAB PO SCH (10:11)
[2018-06-25] MEDS: methylPREDNISolone SOD SUCC 40 MG/ML VL IV SCH ×2 (10:11→21:55)
--- NOTE | 2018-06-25 11:15 | NUR ---
TRANSPORTED PT TO ORGAN GRINDER WITH NO INCIDENT REPORTED. PT MANUALLY VENTILATED TO ORGAN GRINDER AND PLACED ON ORGAN GRINDER VENTILATOR ON SETTINGS OF , AC, 12, 500, 5 100%FIO2. MOLD MAKER PLASTER THROUGHOUT TRANSPORT. RETURNED FROM ORGAN GRINDER AT APPROXIMATELY 1245. PLACED PT ON PREVIOUS VENT SETTINGS OF AC, 12, 500, 5 45% FIO2. WILL CONTINUE TO MONITOR PT.
[2018-06-25] MEDS ORDERED: IOHEXOL 350 MG/ML 100ML IJ ONE ×2 (11:19→11:35)
[2018-06-25] MEDS ORDERED: LIDOCAINE 2%HCL (LOCAL ANESTH.) INJ 20ML MDV ONE (11:19)
[2018-06-25] MEDS ORDERED: ANGIOMAX 250 MG VIAL IV ONE (11:41)
[2018-06-25] MEDS ORDERED: ATROPINE SULFATE 1 MG/1 ML VIAL ONE (11:41)
[2018-06-25] MEDS ORDERED: SODIUM CHL 0.9% 0 ML ONE (11:41)
[2018-06-25] MEDS ORDERED: EPINEPHrine HCL 1 MG/10 ML SYRG ONE (11:42)
[2018-06-25] MEDS ORDERED: DOPamine 1600MCG/ML D5W 0 ML IV ONE (11:42)
[2018-06-25] MEDS ORDERED: NITROGLYCERIN 50MG/250ML 250 ML IV ONE ×2 (12:03→14:38)
[2018-06-25] MEDS ORDERED: DOBUTamine 1000MCG/ML 250 ML IV ONE (12:15)
[2018-06-25] MEDS ORDERED: CLOPIDOGREL 300 MG TAB ONE (12:16)
--- NOTE | 2018-06-25 12:36 | NUR ---
Resumed care of patient at 0700. Orders reviewed and ongoing assessments being done and documented. Remains intubated and sedated and being treated for multiple problems. Does not open eyes spontaneously but does withdraw to touch and has facial grimacing when rendering care. Left Nephrostomy tube remains intact and patient. Made Dr. Barajas aware that there is a scant amount of urine output from Verdugo catheter, will discontinue Verdugo. Scheduled for [facility] with Dr. Huffman today. Contacted the patient's son Galen Fajardo and consents obtained for procedure, all questions answered. Escorted to mechanical shop laborer at 1120 am.
[2018-06-25] MEDS ORDERED: hydrALAZINE HCL 25 MG TAB ONE (14:14)
[2018-06-25] MEDS: DOBUTamine 1000MCG/ML 250 ML IV SCH ×2 (14:45→16:14)
[2018-06-25] MEDS: NITROGLYCERIN 50MG/250ML 250 ML IV SCH (14:45)
[2018-06-25] MEDS: MIDAZOLAM DRIP 50 mg/50mL 50 ML IV SCH (14:52)
--- NOTE | 2018-06-25 15:00 | NUR ---
REPORT RECEIVED FROM MARIALUISA WALSH, ASSUMED PATIENT CARE.
[2018-06-25] MEDS: cloNIDine HCL 0.1 MG TAB PO PRN (16:13)
--- NOTE | 2018-06-25 16:22 | NUR ---
Returned to unit at 1300 from screedman/laborer, escorted by staff and received report from Hyacinth WALSH. 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 Dr. Huffman placed a IABP via right groin. Size 7 Fr. with a 34 cc balloon. IABP trigger set ECG, frequency 1:1 with maximum augmentation. No bleeding or hematoma noted at insertion site or bleeding in IABP tubing. Assisted SYST/BUTTS 151/64 and augmented pressure 164. Right foot cool to touch with tibial and pedal pulses obtained with a Doppler. Noted left pedal pulse unobtainable and tibial pulse obtained with Doppler, left foot also cool to touch. PA catheter inserted via right groin as well. Primed tubing and connected to cable. Initial CVP reading 7 & PAS 36 PAD 22. Arrived on a Dobutamine gtt at 40mcg/kg/min, clarified dose with Dr. Huffman, set dose at 5 mcg/kg/min. Continue with Amiodarone gtt at .5mg/min. Remains intubated and on versed for sedation. Noted increase in augmented pressure up to 190. Contacted Dr. Huffman. Dr. Huffman would like the patient on a Nipride infusion, not available from pharmacy. Spoke with Pharmacist Indu and made him aware that Dr. Huffman would like them to call [facility] and [facility] to see if they can obtain the medication from them. As for now a Tridil gtt was initiated. Per Dr. Huffman would like to maintain a augmented pressure between 100-120. Hydralazine 50 mg was also given via NGT by Hyacinth WALSH. Patient's son Galen Fajardo arrived to the hospital. Dr. Huffman spoke to him approximately at 1440 and updated him on his moms condition. Per Dr. Huffman poor prognosis and stated that she has a 10% survival rate, all questions answered and son very tearful, emotional support given. Patient a 1:1 Jarrett RN resumed care of patient at 1500. Report given. Pending hemodialysis treatment and one unit of PRBC's to be given with dialysis.
[2018-06-25] MEDS: D5W 5% IV SCH (16:51)
[2018-06-25] MEDS: NITROPRUSSIDE SODIUM IV SCH (16:51)
[2018-06-25] MEDS: SODIUM FERR GLUC 62.5MG/5ML 125 MG in SODIUM CHL 0.9% 100 ML IV SCH (16:52)
[2018-06-25] MEDS: hydrALAZINE HCL 25 MG TAB PO SCH ×2 (18:39→23:49)
[2018-06-25] MEDS: Nepro With Carb Steady 1 Liter Bottle GT SCH (19:00)
--- NOTE | 2018-06-25 19:00 | NUR ---
DIALYSIS NURSE AT BEDSIDE
[2018-06-25] MEDS ORDERED: ALBUMIN 25% 100 ML IV SCH (20:00)
--- NOTE | 2018-06-25 20:45 | NUR ---
PRBC IS GIVEN DURING DIALYSIS BY DIALYSIS NURSE. NO REACTION NOTED.
--- NOTE | 2018-06-25 21:35 | NUR ---
HEMODIALYSIS IS FINISHED. OUTPUT 1200ML.
[2018-06-25] MEDS: ATORVASTATIN 20 MG TAB PO SCH (21:55)
[2018-06-25] MEDS: PROPOFOL 100 ML IV SCH (23:15)
[2018-06-25] MEDS: fentaNYL Drip 2500mCg/250mlNS 250 ML IV SCH (23:15)
[2018-06-26] VITALS (107 sets, daily range): BP systolic 22–144; BP diastolic 10–109
[2018-06-26] MEDS: ALBUTEROL SULF 2.5 MG/0.5ML(0.5%) NEB SOLN NEB SCH ×4 (00:11→18:03)
[2018-06-26] MEDS ORDERED: AMIODARONE HCL 900 MG IV ONE (01:03)
[2018-06-26] MEDS: AMIODARONE HCL 900 MG in DEXTROSE 500 ML IV SCH (01:11)
[2018-06-26] MEDS: ACCU-CHEK COMFORT CURVE STRIP VI SCH ×6 (03:31→23:46)
[2018-06-26] MEDS: InsuLIN REG 1unit/0.01ml Soln (100units/ml) SC SCH ×5 (03:31→23:46)
[2018-06-26 03:48] LABS: Basophils # (auto) 0 uL; Eosinophils # (auto) 0 uL; Lymphocytes # (auto) 0.1 uL; Monocytes # (auto) 0.6 uL; Platelet Count (auto) 32 10^3/uL (140-450)
[2018-06-26 03:52] LABS: Basophils % (auto) 0.2 % (0.0-2.0); Hematocrit 26.1 % (36.0-46.0); Hemoglobin 9.3 g/dL (12.2-16.2); Lymphocytes % (auto) 0.7 % (10.0-50.0); Mean Corpuscular Hemoglobin 33.6 pg (28.0-32.0); Mean Corpuscular Hgb Conc. 35.5 g/dL (32.0-36.0); Mean Corpuscular Volume 94.6 fL (80.0-100.0); Monocytes % (auto) 5.3 % (0.0-12.0); Neutrophils # (auto) 10.3 uL; Neutrophils % (auto) 93.8 % (37.0-80.0); Nucleated Red Blood Cells % 1.3 %; Red Blood Cells 2.76 10^6/uL (4.0-5.20); Red Cell Distribution Width 13.7 % (11.8-14.3)
[2018-06-26 04:01] LABS: Albumin 2.4 g/dL (3.4-5.0); BUN/Creatinine Ratio 22.4; Calcium 6.5 mg/dL (8.5-10.1); Potassium 4.4 mmol/L (3.5-5.1)
[2018-06-26 04:10] LABS: Bilirubin, Total 0.8 mg/dL (0.2-1.0); Total Protein 5.1 g/dL (6.4-8.2)
[2018-06-26] MEDS: CALCIUM ACETATE 667 MG CAP NG SCH ×3 (06:00→22:05)
[2018-06-26] MEDS: SODIUM BICARBONATE 650 MG TAB PO SCH ×3 (06:00→22:04)
--- NOTE | 2018-06-26 06:00 | NUR ---
sedation increased pco2 26.8, respiration 22
[2018-06-26] MEDS: hydrALAZINE HCL 25 MG TAB PO SCH ×4 (06:01→22:05)
[2018-06-26] MEDS: VASOPRESSIN 50 UNITS in D5W 5% 247.5 ML IV SCH (08:15)
[2018-06-26] MEDS: NITROPRUSSIDE SODIUM IV SCH (08:44)
[2018-06-26] MEDS: D5W 5% IV SCH (08:44)
[2018-06-26] MEDS: DOBUTamine 1000MCG/ML 250 ML IV SCH (08:52)
[2018-06-26] MEDS: cefTRIAXone 1GM/50ML D5W 50 ML IV SCH (08:52)
--- NOTE | 2018-06-26 09:07 | NUR ---
Resumed care of patient at 0700. Orders reviewed and ongoing assessments being done and documented. Being treated for multiple problems and remains intubated and sedated. S/P [facility] on 06-25-18. Diagnosed with multivessel disease, only intervention was insertion of a IABP. 7 Fr. 34cc balloon catheter in place and functioning properly. No hematoma around insertion site, no blood in IABP tubing. IAB frequency remains 1:1. PA catheter also inserted via right groin remains intact and patient. Obtaining hemodynamic values and documenting. Both feet warm to touch and obtained pedal and tibial pulses with Doppler. Remains on Dobutamine and a Nitroprusside infusion for hemodynamic stability. Per Dr. Huffman, facility service associate would like to maintain a augmented pressure of 100-120. Per pharmacy Nitroprusside to run at 1 mcg/kg/min due to renal failure. Nephrostomy tube to left side remains intact and draining yellow urine. Noted wound to coccyx area now dark purple/black and nonblanchable. Made Laverne major gifts manager aware and decreased firmness to bed mattress to the lowest setting.
[2018-06-26] MEDS: fentaNYL Drip 2500mCg/250mlNS 250 ML IV SCH (09:31)
[2018-06-26] MEDS: NOREPINEPHRINE BITARTRATE 32 MG in D5W 5% 218 ML IV SCH (09:37)
[2018-06-26] MEDS: PANTOPRAZOLE 40 MG/10 ML VIAL IV SCH ×2 (09:42→22:04)
[2018-06-26] MEDS: METOPROLOL SUCCINATE XL 50 MG TAB PO SCH (09:42)
[2018-06-26] MEDS: methylPREDNISolone SOD SUCC 40 MG/ML VL IV SCH ×2 (09:42→22:04)
[2018-06-26] MEDS: MIDAZOLAM DRIP 50 mg/50mL 50 ML IV SCH (09:52)
[2018-06-26] MEDS: CLOPIDOGREL BISULFATE 75 MG TAB PO SCH (09:53)
[2018-06-26] MEDS: INSULIN LANTUS (GLARGINE) 1 /0.01ml (100units/ml) SC SCH ×2 (09:56→22:06)
[2018-06-26] MEDS: SODIUM FERR GLUC 62.5MG/5ML 125 MG in SODIUM CHL 0.9% 100 ML IV SCH (11:49)
[2018-06-26] MEDS ORDERED: SODIUM CHLORIDE 0.9 % NEB SOLN 3ML NEB ONE (12:56)
[2018-06-26] MEDS: NITROGLYCERIN 50MG/250ML 250 ML IV SCH (15:01)
--- NOTE | 2018-06-26 15:08 | NUR ---
Tridil gtt initiated at 1023 secondary to increase in augmented pressure >140. Tridil at 20 mcg/min at this time. Dr. Gama, trap operator rounded at 1300. Discussed patient condition and plan of care. VT changed to 450, changed made by Roxane LOZANO. Dr. Barajas also rounded at 1300. Patient examined and chart reviewed, will continue current plan of care. Dr. Barajas met with the patient's son Galen Fajardo to discussed condition and plan of care. She provided a letter that he requested.
--- NOTE | 2018-06-26 18:03 | NUR ---
Respiratory note: RECEIVED PT ON MARTELL V200 VENT, PT IS ETT TO VENT. VENT CONNECTED TO RED OUTLET AND [id number]. ALARMS ARE SET AND AUDIBLE. AMBU BAG AND MASK AT BEDSIDE. BS ARE FINE COURSE SXD SCANT THIN CLEAR. MED NEB TX GIVEN INLINE WITHOUT ADVERSE REACTION NOTED RT NAME AND PAGER ASSIGNMENT WRITTEN ON PTS ROOM BOARD. WILL CONTINUE TO MONITOR Q2H CHECKS AND NEEDED.
--- NOTE | 2018-06-26 18:13 | NUR ---
Dr. Huffman, Rehabilitation Center Manager rounded approximately at 1725. Discussed patient's condition and reviewed medications, will continue with all current intravenous gtts. Per Dr. Huffman, he would like the patient to be extubated before removal of the IABP. Spoke with Dr. Gama, windows system admin at 1815, okay for CPAP trial in the am. Patient's son Galen at bedside when Dr. Huffman rounded. Remains sedated. IABP functioning properly, no changes made on settings. Vital signs remains stable and adjusting Tridil infusion when appropriate for hemodynamic stability. Had a small brown pasty BM, cleansed with soap and water, pat dry and applied Z-guard cream to buttocks.
--- NOTE | 2018-06-26 18:51 | NUR ---
Held NGT feeding all day. Unable to sit patient up >30 degree, risk of aspiration.
--- NOTE | 2018-06-26 19:00 | NUR ---
Family updated on patient's condition by Charu WALSH. They verbalized understanding.
--- NOTE | 2018-06-26 20:05 | NUR ---
Respiratory note: AT BEDSIDE FOR ROUTINE VENT CHECK NO CHANGES MADE WILL CONTINUE TO MONITOR. CURRENT TEMP IS 97.9F.
--- NOTE | 2018-06-26 20:45 | NUR ---
Family Patient's son Pari are at bedside. plan of care explained to them.
[2018-06-26] MEDS: ATORVASTATIN 20 MG TAB PO SCH (22:04)
--- NOTE | 2018-06-26 22:06 | NUR ---
Respiratory note: AT BEDSIDE FOR ROUTINE VENT CHECK NO CHANGES MADE WILL CONTINUE TO MONITOR. CURRENT TEMP IS 98.3F.
[2018-06-26] MEDS: PROPOFOL 100 ML IV SCH (23:58)
[2018-06-27] VITALS (89 sets, daily range): BP systolic 22–143; BP diastolic 8–105
[2018-06-27] MEDS: ALBUTEROL SULF 2.5 MG/0.5ML(0.5%) NEB SOLN NEB SCH ×4 (00:21→18:11)
--- NOTE | 2018-06-27 00:21 | NUR ---
Respiratory note: AT BEDSIDE FOR ROUTINE VENT CHECK NO CHANGES MADE WILL CONTINUE TO MONITOR. CURRENT TEMP IS 98.6F. MED NEB TX GIVEN INLINE WITHOUT ADVERSE REACTION NOTED.
[2018-06-27] MEDS: DOBUTamine 1000MCG/ML 250 ML IV SCH ×2 (00:56→15:01)
[2018-06-27] MEDS: D5W 5% IV SCH ×2 (00:56→15:18)
[2018-06-27] MEDS: NITROPRUSSIDE SODIUM IV SCH ×2 (00:56→15:18)
--- NOTE | 2018-06-27 02:11 | NUR ---
Respiratory note: AT BEDSIDE FOR ROUTINE VENT CHECK NO CHANGES MADE WILL CONTINUE TO MONITOR. HME AND SX CATHETER CHANGED.
[2018-06-27] MEDS: ACCU-CHEK COMFORT CURVE STRIP VI SCH ×5 (03:28→20:00)
[2018-06-27] MEDS: InsuLIN REG 1unit/0.01ml Soln (100units/ml) SC SCH ×5 (03:29→20:00)
--- NOTE | 2018-06-27 04:00 | NUR ---
Patient bathe/linen change Patient given complete bath. Skin integrity assessed for any changes. Linens changed. Patient repositioned for comfort.
--- NOTE | 2018-06-27 04:31 | NUR ---
Respiratory note: END OF SHIFT CHECK NO VENT CHANGES MADE. WILL HAVE DAY SHIFT CONTINUE PLAN OF CARE.
[2018-06-27 05:05] LABS: Basophils # (auto) 0 uL; Eosinophils # (auto) 0 uL; Lymphocytes # (auto) 0.2 uL; Neutrophils % (auto) 95.1 % (37.0-80.0); White Blood Cell 13.5 10^3/uL (4.4-10.8)
[2018-06-27 05:06] LABS: Basophils % (auto) 0.1 % (0.0-2.0); Hematocrit 23.9 % (36.0-46.0); Lymphocytes % (auto) 1.2 % (10.0-50.0); Mean Corpuscular Hemoglobin 32.6 pg (28.0-32.0); Mean Corpuscular Hgb Conc. 33.7 g/dL (32.0-36.0); Mean Corpuscular Volume 96.6 fL (80.0-100.0); Monocytes # (auto) 0.5 uL; Monocytes % (auto) 3.6 % (0.0-12.0); Neutrophils # (auto) 12.9 uL; Nucleated Red Blood Cells % 0.8 %; Red Blood Cells 2.47 10^6/uL (4.0-5.20)
[2018-06-27 05:12] LABS: Calcium 6.4 mg/dL (8.5-10.1)
[2018-06-27 05:15] LABS: Albumin 2.3 g/dL (3.4-5.0); BUN/Creatinine Ratio 23.2
[2018-06-27 05:18] LABS: Bilirubin, Total 0.5 mg/dL (0.2-1.0)
[2018-06-27 05:44] LABS: Platelet Count (auto) 16 10^3/uL (140-450)
[2018-06-27] MEDS: SODIUM BICARBONATE 650 MG TAB PO SCH ×3 (05:52→21:52)
[2018-06-27] MEDS: CALCIUM ACETATE 667 MG CAP NG SCH ×3 (05:52→21:52)
[2018-06-27] MEDS: hydrALAZINE HCL 25 MG TAB PO SCH ×4 (05:53→21:53)
--- NOTE | 2018-06-27 07:30 | NUR ---
ASSESS- PT. LYING IN BED ON VENT SIZE# 8.0 ET, 24 AT THE LIP, AC-12, TV-450, PEEP-5, FIO2-30%. LUNGS CLEAR LUCERO. INSPIRATORY AND EXPIRATORY, DIMINISHED BASES LUCERO. PT. HAS GAG/COUGH REFLEX. PUPILS 2 AND SLUGGISH LUCERO. RESPONDS TO PAINFUL/TACTILE STIMULI. OFF SEDATION. EYES OPEN AT TIMES, DO NOT STAY OPEN. NO MOVEMENT OF EXTREMITIES SEEN. NGT RT. NARE INTACT, CLAMPED. ABD. SOFT, FLAT. BOWEL SOUNDS ALL FOUR QUADRANTS. NEPHROSTOMY TUBE LT. FLANK INTACT WITH CLEAR LT. DRE URINE. RADIAL PULSES STRONG, PALPABLE LUCERO. DORSALIS PEDAL PULSES AND TIB/FIB PULSES WEAK WITH DOPPLER. SKIN PINK, WARM TO TOUCH LUCERO. LE WITH BRISK CAPILLARY REFILL. IABP RT. GROIN INTACT 1:1. SWAN UMANG RT. FEMORAL INTACT. TLC RT. IJ INTACT. TRACEY CATHETER LT. IJ INTACT. DTI TO COCCYX. SCD LT. NON-PITTING GENERALIZED EDEMA. LG. BRUISE TO RT. SIDE OF ABD.
[2018-06-27] MEDS: VASOPRESSIN 50 UNITS in D5W 5% 247.5 ML IV SCH (07:56)
--- NOTE | 2018-06-27 08:30 | NUR ---
PT. VOMITED WHILE ON VENT, IMMEDIATELY SUCTIONED PT'S. MOUTH AND OBTAINED BROWN/BILE DRAINAGE ORALLY MOD. AMOUNT. ATTACHED NGT TO LCS AND 150 CC BILE/BROWN DRAINAGE CAME OUT. MED. PT. WITH ZOFRAN 4MG. IVP. PT. IS NPO.
[2018-06-27] MEDS: cefTRIAXone 1GM/50ML D5W 50 ML IV SCH (08:39)
[2018-06-27] MEDS: fentaNYL Drip 2500mCg/250mlNS 250 ML IV SCH (09:04)
--- NOTE | 2018-06-27 09:30 | NUR ---
NO MORE PERIODS OF EMESIS.
[2018-06-27] MEDS: NOREPINEPHRINE BITARTRATE 32 MG in D5W 5% 218 ML IV SCH (09:37)
[2018-06-27] MEDS: PANTOPRAZOLE 40 MG/10 ML VIAL IV SCH ×2 (09:38→22:22)
[2018-06-27] MEDS: methylPREDNISolone SOD SUCC 40 MG/ML VL IV SCH ×2 (09:38→22:21)
[2018-06-27] MEDS: CLOPIDOGREL BISULFATE 75 MG TAB PO SCH (09:39)
[2018-06-27] MEDS: INSULIN LANTUS (GLARGINE) 1 /0.01ml (100units/ml) SC SCH ×2 (09:39→22:22)
[2018-06-27] MEDS: METOPROLOL SUCCINATE XL 50 MG TAB PO SCH (09:39)
[2018-06-27] MEDS: AMIODARONE HCL 900 MG in DEXTROSE 500 ML IV SCH (09:40)
[2018-06-27] MEDS: MIDAZOLAM DRIP 50 mg/50mL 50 ML IV SCH (09:47)
--- NOTE | 2018-06-27 09:52 | NUR ---
CHARTING ERROR AT 0720, WRONG PT.
--- NOTE | 2018-06-27 10:00 | NUR ---
AUGMENTED PRESSURES IN THE 130'S. RESTARTED TRIDIL GTT. AT 10 MCG. MONITORING PRESSURES. INFORMED IN REPORT DR. ROSAS WOULD LIKE THE AUGMENTED PRESSURES IN THE 100'S-120'S.
--- NOTE | 2018-06-27 10:34 | NUR ---
Nutrition Follow-up Notes Wt.: 56.2 kg Pt's intubated, non-sedated, no immediate family member at bedside during rounds earlier. Pt's had dialysis (06/25/18), currently NPO with EN support temporarily held since yesterday r/t unable to sit patient up >30 degree, risk of aspiration, per nursing notes. Pt's previously on Nepro Carb Steady @ 30 ml/hr providing 1296 kcal, 58 gms pro and 523 ml free water. Est. Needs reassessed based on CBWt.(54 kg): 9568-8728 kcal (25-30 kcal/kgBW), 65-86 gms pro (1.2-1.6 gms/kgBW r/t ESRD on HD, severe hypoalbuminemia). Will continue to monitor pertinent labs and reassess nutrient needs prn. Labs: Gluc 146 H, Na 127 L, Cl 92 L, BUN 105 H, Cr 4.52 H, AST/ALT 68/761 H, Ca 6.4 L, Tpro 5.0 L, Alb 2.3 L. Skin: Didier scale 12, high risk, pt's medial sacrum, coccyx DTI per last dipper. Pls refer to master welder's notes 06/24/18 for further details re: tx plans. GI: Pt had 1 BM 06/26/18 per last dipper. PES: Altered nutrition related lab values r/t current/chronic medical condition aeb elev RFT, mild hypoalb, hyperglycemia, hypocalcemia Increased nutrient needs r/t acute/chronic medical condition aeb ESRD on HD, severe hypoalbuminemia, intubated, sedated, NPO. Will continue to monitor NPO status, EN tolerance, skin status, pertinent labs and weight trend. F/u in 2 to 3 days. Rec.: 1.) If still NPO, consider to resume EN support at lower rate with gradual increase on feeding rate of Nepro Carb Steady to 35 ml/hr as tolerated. 2.) If pt unable to tolerate EN support with Albumin/Prealbumin continue trending down, consider PN support if medically appropriate. 3.) Consider daily Nephrovite and Asc acid 500 mgs BID prn. 4.) Resume gradually to oral diet when medically appropriate. 5.) Refer pt to CDE/RD for further nutrition education and weight monitoring upon discharge. 6.) Continue current plan of care.
--- NOTE | 2018-06-27 10:45 | NUR ---
AUGMENTED PRESSURES UP IN THE 140'S-130'S. TITRATING NTG. GTT. UP, CURRENTLY AT 50 MCG. MONITORING PRESSURES. HR 60'S-70'S, SR WITHOUT ECTOPY.
[2018-06-27] MEDS: SODIUM FERR GLUC 62.5MG/5ML 125 MG in SODIUM CHL 0.9% 100 ML IV SCH (11:37)
--- NOTE | 2018-06-27 12:10 | NUR ---
DR. ECHEVARRIA Provider/Hospitalist at bedside. GAVE UPDATE ON PT.
--- NOTE | 2018-06-27 12:35 | NUR ---
DR. TIPTON Provider/Hospitalist at bedside. GAVE UPDATE ON PT. NEW ORDERS RECEIVED.
--- NOTE | 2018-06-27 13:20 | NUR ---
FAMILY VISITING AT THE BS. PT. IS STARTING TO WAKE UP SOME MORE. EYES OPEN, NO TRACKING. DOES NOT FOLLOW COMMANDS. STILL DROWSY. PT. HAS GAG/COUGH REFLEX. PUPILS 2 AND SLUGGISH LUCERO. NO SEDATION.
--- NOTE | 2018-06-27 13:45 | NUR ---
DR. MUHAMMAD Provider/Hospitalist at bedside. GAVE UPDATE ON PT. SPOKE WITH PT'S. FAMILY. NEW ORDERS RECEIVED.
[2018-06-27] MEDS ORDERED: HYDROcodone-ACET 5/325MG TAB PO PRN (14:00)
[2018-06-27] MEDS ORDERED: MORPHINE SULFATE 4 MG/ML SYR/VIAL IV PRN (14:00)
[2018-06-27] MEDS ORDERED: LORazepam 0.5 MG TAB PO PRN (14:00)
--- NOTE | 2018-06-27 14:10 | NUR ---
BP 151/78. AUGMENTED PRESSURES ON IABP 140'S-150'S. MED. PT. WITH HYDRALAZINE 10 MG. IVP. CONTINUING TO MONITOR BP.
[2018-06-27] MEDS: hydrALAZINE HCL 20 MG/ML VL IV PRN ×2 (14:11→22:51)
[2018-06-27] MEDS: NITROGLYCERIN 50MG/250ML 250 ML IV SCH (14:12)
--- NOTE | 2018-06-27 14:40 | NUR ---
SBP DECFREASED TO THE 120'S. TRIDIL GTT. AT 140 MCG. MONITORING BP AND IABP PRESSURES.
--- NOTE | 2018-06-27 14:45 | NUR ---
PHYSICAL THERAPY AT THE FOR ROM. INFORMED OF IABP RT. GROIN AND NOT TO BEND THAT LEG.
--- NOTE | 2018-06-27 16:15 | NUR ---
RN HERE FOR HEMODIALYSIS. USING TRACEY CATHETER LT. IJ.
--- NOTE | 2018-06-27 16:35 | NUR ---
PT'S. HR INCREASED TO THE 120'S, A-FIB WITH PAC'S. OWNER/OPERATOR CHANGED SETTINGS TO PULL FLUID SLOWER. A-LINE SBP ONE TEENS TO 120'S. AUGMENTED PRESSURES ON IABP 120'S-130'S. TITRATING TRIDIL GTT. DOWN. MONITORING BP.
--- NOTE | 2018-06-27 17:00 | NUR ---
PT. WENT BACK INTO SR, HR 90'S.
--- NOTE | 2018-06-27 18:15 | NUR ---
HEMODIALYSIS COMPLETED. 2.2 LITERS REMOVED. VSS. HR 80'S-90'S SR.
[2018-06-27] MEDS: ATORVASTATIN 20 MG TAB PO SCH (21:53)
--- NOTE | 2018-06-27 22:59 | NUR ---
PT WAS SWITCHED OVER FROM A NON-HEATED CIRCUIT TO A HEATED CIRCUIT ON [employer] V7 VENT. SST PERFORMED PRIOR TO SET-UP. PLACED ON PREVIOUS SETTINGS. PT TOLERATED IT WELL AND WITHOUT INCIDENT.
[2018-06-27] MEDS: PROPOFOL 100 ML IV SCH (23:58)
[2018-06-28] VITALS (71 sets, daily range): BP systolic 31–139; BP diastolic 23–98
[2018-06-28] MEDS: ALBUTEROL SULF 2.5 MG/0.5ML(0.5%) NEB SOLN NEB SCH ×4 (00:06→18:15)
--- NOTE | 2018-06-28 03:35 | NUR ---
Respiratory note: RN NOTIFIED OF ABG RESULTS. WILL CONTINUE TO MONITOR.
[2018-06-28] MEDS: InsuLIN REG 1unit/0.01ml Soln (100units/ml) SC SCH ×6 (04:00→20:00)
[2018-06-28] MEDS: ACCU-CHEK COMFORT CURVE STRIP VI SCH ×6 (04:00→20:00)
[2018-06-28 04:02] LABS: Basophils # (auto) 0 uL; Eosinophils # (auto) 0 uL; Lymphocytes # (auto) 0.3 uL; Mean Corpuscular Hemoglobin 32.8 pg (28.0-32.0); Neutrophils # (auto) 15.1 uL
[2018-06-28 04:03] LABS: Hematocrit 22.3 % (36.0-46.0); Hemoglobin 7.7 g/dL (12.2-16.2); Lymphocytes % (auto) 1.6 % (10.0-50.0); Mean Corpuscular Hgb Conc. 34.4 g/dL (32.0-36.0); Mean Corpuscular Volume 95.3 fL (80.0-100.0); Monocytes % (auto) 5.9 % (0.0-12.0); Neutrophils % (auto) 92.5 % (37.0-80.0); Nucleated Red Blood Cells % 1.3 %; Red Blood Cells 2.34 10^6/uL (4.0-5.20); Red Cell Distribution Width 13.9 % (11.8-14.3); White Blood Cell 16.3 10^3/uL (4.4-10.8)
[2018-06-28 04:11] LABS: Albumin 2.5 g/dL (3.4-5.0); Calcium 6.7 mg/dL (8.5-10.1); Potassium 4.7 mmol/L (3.5-5.1)
[2018-06-28 04:14] LABS: BUN/Creatinine Ratio 19.7; Bilirubin, Total 0.5 mg/dL (0.2-1.0); Total Protein 5.1 g/dL (6.4-8.2)
[2018-06-28 04:26] LABS: Platelet Count (auto) 11 10^3/uL (140-450)
--- NOTE | 2018-06-28 04:26 | NUR ---
CRITICAL PLT - 11, ENDORSED TO ANGIE WALSH
[2018-06-28] MEDS: SODIUM BICARBONATE 650 MG TAB PO SCH ×3 (06:00→22:00)
[2018-06-28] MEDS: CALCIUM ACETATE 667 MG CAP NG SCH ×3 (06:00→22:00)
[2018-06-28] MEDS: hydrALAZINE HCL 25 MG TAB PO SCH ×4 (06:00→22:00)
[2018-06-28] MEDS: hydrALAZINE HCL 20 MG/ML VL IV PRN ×2 (06:01→11:55)
[2018-06-28] MEDS: DOBUTamine 1000MCG/ML 250 ML IV SCH (07:57)
[2018-06-28] MEDS: VASOPRESSIN 50 UNITS in D5W 5% 247.5 ML IV SCH (08:15)
[2018-06-28] MEDS: D5W 5% IV SCH (08:23)
[2018-06-28] MEDS: NITROPRUSSIDE SODIUM IV SCH (08:23)
[2018-06-28] MEDS: NITROGLYCERIN 50MG/250ML 250 ML IV SCH ×3 (08:59→16:28)
[2018-06-28] MEDS: fentaNYL Drip 2500mCg/250mlNS 250 ML IV SCH (09:04)
[2018-06-28] MEDS: cefTRIAXone 1GM/50ML D5W 50 ML IV SCH (09:23)
[2018-06-28] MEDS: NOREPINEPHRINE BITARTRATE 32 MG in D5W 5% 218 ML IV SCH (09:37)
[2018-06-28] MEDS: MIDAZOLAM DRIP 50 mg/50mL 50 ML IV SCH (09:47)
[2018-06-28] MEDS ORDERED: CLOPIDOGREL BISULFATE 75 MG TAB PO SCH (10:00)
[2018-06-28] MEDS: METOPROLOL SUCCINATE XL 50 MG TAB PO SCH (10:05)
[2018-06-28] MEDS: PANTOPRAZOLE 40 MG/10 ML VIAL IV SCH ×2 (10:05→22:00)
[2018-06-28] MEDS: methylPREDNISolone SOD SUCC 40 MG/ML VL IV SCH (10:05)
[2018-06-28] MEDS: AMIODARONE HCL 900 MG in DEXTROSE 500 ML IV SCH (10:06)
[2018-06-28] MEDS: INSULIN LANTUS (GLARGINE) 1 /0.01ml (100units/ml) SC SCH ×2 (10:06→22:00)
[2018-06-28] MEDS: cloNIDine HCL 0.1 MG TAB PO PRN (11:14)
--- NOTE | 2018-06-28 11:45 | NUR ---
Patient seen by Dr. Barajas - stop Nitroprusside. Addendum: 06/28/18 at 1751 by Martine Harris RN stop Amiodarone.
--- NOTE | 2018-06-28 11:50 | NUR ---
/ BP SPOKE WITH DR MUHAMMAD REGARDING PT'S ELEVATED BP, A LINE 140-150/100, DESPITE 200 MCG OF NITROGLYCERIN. ALSO ON NITROPRUSSIDE AT SET RATE OF 0.5 MCG/KG/MIN AND DOBUTAMINE AT A SET RATE OF 5 MCG/KG/MIN. PER DR MUHAMMAD, STOP AMIODARONE DRIP AND NITROPRUSSIDE AND ADMINISTER PRN IV DOSE OF HYDRALAZINE. ORDERS CARRIED OUT. CONTINUE TO MONITOR.
[2018-06-28] MEDS: SODIUM FERR GLUC 62.5MG/5ML 125 MG in SODIUM CHL 0.9% 100 ML IV SCH (12:06)
--- NOTE | 2018-06-28 14:09 | NUR ---
JACQUESAR report received from JILLIAN Millan. See Px Assessment. Addendum: 06/28/18 at 1411 by Martine Harris RN at 1830
--- NOTE | 2018-06-28 14:36 | NUR ---
Darnell to start nicardipine for increased augmentation pressure (150's). Addendum: 06/28/18 at 1752 by Martine Harris RN Per Dr. Ramirez
[2018-06-28] MEDS ORDERED: NICARDIPINE 25MG/250ML BAG KIT 250 ML IV ONE (14:44)
[2018-06-28] MEDS: NICARDIPINE 25MG/250ML BAG KIT 250 ML IV SCH ×2 (14:57→19:37)
[2018-06-28] MEDS ORDERED: FUROSEMIDE 40 MG/4 ML VIAL ONE (17:21)
[2018-06-28] MEDS ORDERED: FUROSEMIDE 40 MG/4 ML VIAL IV ONE (17:30)
--- NOTE | 2018-06-28 17:40 | NUR ---
Dr. Huffman at bedside- CPAP and give lasix 40 mg IV x 1.
--- NOTE | 2018-06-28 18:30 | NUR ---
CPAP trial initiated. Addendum: 06/28/18 at 1917 by Martine Harris RN CPAP trial failed- patient heart-rate increased to one teens/120's and irregular. Back on AC mode.
--- NOTE | 2018-06-28 19:09 | NUR ---
Respiratory note: PT FAILED CPAP TRIAL. HR INCREASED FROM 78 TO 129 AND RR INCREASED FROM 12 TO 30. PLACED PT BACK ON PREVIOUS SETTINGS. AC, RR 12, VT 450, PEEP 5. WILL CONTINUE TO MONITOR.
--- NOTE | 2018-06-28 19:13 | NUR ---
SBAR report given to JILLIAN Millan.
[2018-06-28] MEDS ORDERED: AMIODARONE HCL 900 MG IV ONE (19:52)
[2018-06-28] MEDS: methylPREDNISolone SOD SUCC 125 MG/2 ML VL IV SCH (22:00)
[2018-06-28] MEDS: ATORVASTATIN 20 MG TAB PO SCH (22:00)
[2018-06-28] MEDS: PROPOFOL 100 ML IV SCH (23:58)
[2018-06-29] VITALS (88 sets, daily range): BP systolic 29–144; BP diastolic 16–90
[2018-06-29] MEDS: ALBUTEROL SULF 2.5 MG/0.5ML(0.5%) NEB SOLN NEB SCH ×5 (00:02→23:51)
[2018-06-29] MEDS: NICARDIPINE 25MG/250ML BAG KIT 250 ML IV SCH ×5 (00:37→20:37)
[2018-06-29 03:56] LABS: White Blood Cell 19.6 10^3/uL (4.4-10.8)
[2018-06-29 03:58] LABS: Hematocrit 20.4 % (36.0-46.0); Mean Corpuscular Hemoglobin 32.5 pg (28.0-32.0); Mean Corpuscular Hgb Conc. 34.2 g/dL (32.0-36.0); Mean Corpuscular Volume 95.1 fL (80.0-100.0); Red Blood Cells 2.14 10^6/uL (4.0-5.20)
[2018-06-29] MEDS: ACCU-CHEK COMFORT CURVE STRIP VI SCH ×6 (04:00→20:00)
[2018-06-29] MEDS: InsuLIN REG 1unit/0.01ml Soln (100units/ml) SC SCH ×6 (04:00→20:00)
[2018-06-29 04:04] LABS: Platelet Count (auto) 10 10^3/uL (140-450)
[2018-06-29 04:05] LABS: Band Neutrophils % (manual) 0; Basophils % (manual) 0 (0.0-2.0); Blast Cells 0; Eosinophils % (manual) 0 (0-7); Metamyelocytes % 0; Myelocytes % 0; Promyelocytes % 0; Reactive Lymphocytes 0
[2018-06-29 04:14] LABS: Potassium 4.5 mmol/L (3.5-5.1)
[2018-06-29 04:22] LABS: Albumin 2.5 g/dL (3.4-5.0); BUN/Creatinine Ratio 18.9; Bilirubin, Total 0.8 mg/dL (0.2-1.0); Calcium 6.6 mg/dL (8.5-10.1); Total Protein 5.1 g/dL (6.4-8.2)
[2018-06-29 04:52] LABS: Lymphocytes % (manual) 4 (10.0-50.0); Monocytes % (manual) 2 (0-12)
[2018-06-29] MEDS: SODIUM BICARBONATE 650 MG TAB PO SCH ×3 (05:51→21:57)
[2018-06-29] MEDS: CALCIUM ACETATE 667 MG CAP NG SCH ×3 (05:51→21:57)
[2018-06-29] MEDS: hydrALAZINE HCL 25 MG TAB PO SCH ×4 (06:00→22:39)
[2018-06-29] MEDS: methylPREDNISolone SOD SUCC 125 MG/2 ML VL IV SCH ×3 (06:03→22:38)
[2018-06-29] MEDS: NITROGLYCERIN 50MG/250ML 250 ML IV SCH ×2 (08:00→18:24)
--- NOTE | 2018-06-29 08:20 | NUR ---
PAGED DR Monster BRAVO (PER DR ORONA NOTE HE IS COVERING WEEKEND FOR PULMONOLOGY) TO MAKE AWARE OF ABG RESULTS
--- NOTE | 2018-06-29 08:24 | NUR ---
SPOKE WITH DR ROSAS, AWARE OF LABS INCLUDING HGB/PLATLET COUNT. AWARE OF ABG THIS AM. DR GAVE ORDER TO START CPAP TRIAL NOW. PATIENT IS AWAKE AND FOLLOWS SOME COMMANDS.
--- NOTE | 2018-06-29 08:31 | NUR ---
PAGED DR HIGGINS REGARDING SODIUM LEVEL 122
[2018-06-29] MEDS: cefTRIAXone 1GM/50ML D5W 50 ML IV SCH (08:37)
--- NOTE | 2018-06-29 08:54 | NUR ---
SPOKE WITH DR HIGGINS, DR MITCHELL SODIUM LEVEL 122, GAVE NO ORDERS STATED HE WILL COME TO BEDSIDE SOON.
[2018-06-29] MEDS: fentaNYL Drip 2500mCg/250mlNS 250 ML IV SCH (09:04)
--- NOTE | 2018-06-29 09:25 | NUR ---
DR HIGGINS AT BEDSIDE EXAMINED PATIENT AND AWARE OF ALL LABS. DR GAVE NEW ORDERS FOR HD TODAY WITH [address] WOULD LIKE PATIENT TO RECEIVE DIALYSIS PRIOR TO EXTUBATION. WILL NOTIFY HOSPITALIST, DR ROSAS AND DR BRAVO REGARDING HIS REQUEST FOR HD PRIOR TO EXTUBATION.
[2018-06-29] MEDS ORDERED: SODIUM CHL 0.9% 1000 ML BAG XX ONE (09:30)
--- NOTE | 2018-06-29 09:33 | NUR ---
SPOKE WITH DR Monster BRAVO REGARDING PATIENT AM ABG, DR ROSAS'S ORDERS FOR CPAP AND AWARE PATIENT IS ON CPAP NOW AND TOLERATING TRIAL, AWARE ABG RESULTS WILL BE OBTAINED BY RT SOON. STATED HE WILL COME TO SEE PATIENT SOON AND TO CALL WITH ABG RESULTS.
[2018-06-29] MEDS: NOREPINEPHRINE BITARTRATE 32 MG in D5W 5% 218 ML IV SCH (09:37)
[2018-06-29] MEDS: MIDAZOLAM DRIP 50 mg/50mL 50 ML IV SCH (09:47)
[2018-06-29] MEDS: METOPROLOL SUCCINATE XL 50 MG TAB PO SCH ×2 (10:00→10:34)
[2018-06-29 10:03] LABS: Creatinine, Urine 37 mg/dL (30.0-125.0); Sodium Urine 20 mmol/L (40-220)
[2018-06-29] MEDS: PROPOFOL 100 ML IV SCH (10:33)
--- NOTE | 2018-06-29 11:00 | NUR ---
BIOMASS TECHNICIAN AT BEDSIDE
[2018-06-29] MEDS: INSULIN LANTUS (GLARGINE) 1 /0.01ml (100units/ml) SC SCH ×2 (11:04→22:00)
[2018-06-29] MEDS: PANTOPRAZOLE 40 MG/10 ML VIAL IV SCH ×2 (11:04→22:00)
--- NOTE | 2018-06-29 11:40 | NUR ---
DR ROSAS AWARE OF AFIB RVR HR 110'S-120 ACCORDING TO 12 LEAD EKG TAKEN AT 1137 DUE TO RN NOTED AFIB ON BEDSIDE DIGITAL PROJECT COORDINATOR/IABP MONITOR ECG READING. PATIENT REMAINS ON AMIODARONE 0.5MG/MIN IV DRIP. NO NEW ORDERS AT THIS TIME.
--- NOTE | 2018-06-29 11:45 | NUR ---
CONVERTED BACK TO SR 80'S
--- NOTE | 2018-06-29 12:30 | NUR ---
DR ROSAS AT BEDSIDE EXAMINED PATIENT, ELDEST SON COLT AT BEDSIDE WELL. DR ROSAS SPOKE WITH SON REGARDING CODE STATUS AND DR ROSAS SIGNED A DNR FORM AND ORDERED RN TO EXTUBATE PATIENT AFTER DIALYSIS IS FINISHED. DR ROSAS LEFT UNIT AND SON REMAINED AT BEDSIDE AND EXPRESSED HIS WISHES. DNR ORDER AND EXTUBATION ORDER NOT PLACED BY THIS RN DUE TO SON REQUESTING WANTING TO SPEAK TO HIS BROTHERS (PATIENTS OTHER SONS) REGARDING CODE STATUS AND AT THIS TIME PER SON PATIENT IS TO REMAIN FULL CODE. RN WILL DO CPAP TRIAL AFTER DIALYSIS ORDERED EARLIER BY DR BRAVO PER PATIENT SAFETY AND FOR ADVOCACY OF PATIENT/FAMILY.
--- NOTE | 2018-06-29 12:52 | NUR ---
Nutrition Follow-up Notes Wt.: 59.9 kg Pt's intubated, non-sedated, no immediate family member but RN at bedside during rounds earlier. per RN pt failed CPAP this am and not have another CPAP trial later today after HD, hence pt`s feeds on hold this am. Pt's previously on Nepro Carb Steady @ 30 ml/hr providing 1296 kcal, 58 gms pro and 523 ml free water. Est. Needs reassessed based on CBWt.(54 kg): 9385-3906 kcal (25-30 kcal/kgBW), 65-86 gms pro (1.2-1.6 gms/kgBW r/t ESRD on HD, severe hypoalbuminemia). Will continue to monitor pertinent labs and reassess nutrient needs prn. Labs: CA 6.6 L, GLU 154 H, ALB 2.5 L, BUN 79 H, CREAT 4.18 H Skin: Didier scale 12, high risk, pt's medial sacrum, coccyx DTI per hot dog vender. Pls refer to plate conditioner's notes for further details re: tx plans. GI: Pt had 1 BM 06/26/18 per hot dog vender. PES: Altered nutrition related lab values r/t current/chronic medical condition aeb elev RFT, mild hypoalb, hyperglycemia, hypocalcemia Increased nutrient needs r/t acute/chronic medical condition aeb ESRD on HD, severe hypoalbuminemia, intubated, sedated, NPO. Will continue to monitor NPO status, EN tolerance, skin status, pertinent labs and weight trend. F/u in 2 to 3 days. Rec.: 1.) If still NPO, consider to resume EN support at lower rate with gradual increase on feeding rate of Nepro Carb Steady to 35 ml/hr as tolerated. 2.) If pt unable to tolerate EN support with Albumin/Prealbumin continue trending down, consider PN support if medically appropriate. 3.) Consider daily Nephrovite and Asc acid 500 mgs BID prn. 4.) Resume gradually to oral diet when medically appropriate. 5.) Refer pt to CDE/RD for further nutrition education and weight monitoring upon discharge. 6.) Continue current plan of care.
--- NOTE | 2018-06-29 13:02 | NUR ---
TRANSFUSION 2 PRBCs were verified and transfused with HD by Marty WALLACE, tolerated transfusion well, no other problems noted HD ongoing, will monitor pt.
--- NOTE | 2018-06-29 13:10 | NUR ---
NICARDIPINE INCREASED AT THIS TIME, SEE VS/IV SPREADSHEET
--- NOTE | 2018-06-29 13:35 | NUR ---
DR BRAVO AT BEDSIDE, DR EXAMINED PATIENT AND AWARE THAT DR ROSAS CAME IN AND ORDERED TO EXTUBATE AFTER DIALYSIS IN WHICH RN DID NOT PLACE DUE TO PATIENT SAFETY. DR AWARE AT THIS TIME PATIENT IS FULL CODE PER FAMILY. AWARE DIPRIVAN WAS RESTARTED PRIOR TO START OF DIALYSIS AND WHEN PLACED BACK ON AC MODE AFTER FIRST CPAP TRIAL THIS AM DUE TO RR HIGH 20'S. DR GAVE ORDER TO CPAP AGAIN AFTER DIALYSIS AND CALL WITH ABG RESULTS AND WEANING PARAMETERS. GAVE VERBAL ORDER FOR DILAUDID 0.5MG IV Q2H PRN FOR PAIN WHICH WAS VERIFIED AND READ BACK.
--- NOTE | 2018-06-29 14:10 | NUR ---
DR ROSAS AT BEDSIDE AND WANTING TO EXTUBATE, DR AWARE FAMILY INSISTING ON KEEPING PATIENT FULL CODE AT THIS TIME AND AWARE DR Monster BRAVO ORDERED CPAP TRIAL. DR ROSAS REMOVED IABP/SWAN UMANG TO RIGHT GROIN AFTER REQUESTING RN TO PLACE PUMP ON STANDBY. DR HELD MANUAL PRESSURE. ASSISTED DR WITH SAFEGUARD DSG APPLICATION AND 60 ML AIR PLACED PER DR REQUEST. PRESSURE TAPE OVER SAFEGUARD AND SANDBAG PLACED PER DR REQUEST. PULSES WEAK BUT PALPABLE TO BILATERAL DORSALIS PEDIS.DR ORDERED TO LEAVE SAFEGUARD DSG ON UNTIL TOMORROW AM. NO BLEEDING OR HEMATOMA NOTED AT THIS TIME AND SITE IS SOFT TO TOUCH. PATIENT TOLERATED PROCEDURE WELL. DIPRIVAN OFF AFTER REMOVAL OF IABP/SWAN FOR ORDERED CPAP TRIAL BY DR BRAVO. NO ORDERS TO DISCONTINUE CURRENT INFUSING IV MEDICATIONS PER DR ROSAS.
[2018-06-29] MEDS ORDERED: LIDOCAINE 2% (LOCAL ANESTH.) PF 5ml SDV ONE (14:11)
--- NOTE | 2018-06-29 14:15 | NUR ---
NO BLEEDING, BRUISING, OR HEMATOMA TO RIGHT GROIN AND SOFT TO TOUCH WITH WEAK BUT PALPABLE TO RIGHT DORSALIS PEDIS PULSE. DSG REMAINS INTACT WITH PRESSURE TAPE/SANDBAG ON.
--- NOTE | 2018-06-29 14:45 | NUR ---
2 SONS AT BEDSIDE
--- NOTE | 2018-06-29 14:49 | NUR ---
RT PLACED PATIENT ON CPAP, TOLERATING WELL
--- NOTE | 2018-06-29 15:00 | NUR ---
2 SONS AT BEDSIDE AND REQUESTED TO MAKE PATIENT A DNR. FAMILY AWARE CPAP TRIAL INITIATED PER DR BRAVO ORDER AND REQUESTING NOT TO REINTUBATE AND COMFORT MEASURES ONLY IF TOLERATES CPAP AND DR GIVES ORDER TO EXTUBATE. DR ROSAS AWARE AND ORDER PLACED/CODE STATUS FORM COMPLETED AND IN CHART.
[2018-06-29] MEDS: D5W 5% IV SCH (15:43)
[2018-06-29] MEDS: NITROPRUSSIDE SODIUM IV SCH (15:43)
--- NOTE | 2018-06-29 16:00 | NUR ---
NO BLEEDING, BRUISING, OR HEMATOMA TO RIGHT GROIN AND SOFT TO TOUCH WITH WEAK BUT PALPABLE TO RIGHT DORSALIS PEDIS PULSE. SAFEGUARD DSG REMAINS INTACT WITH PRESSURE TAPE OVER IT SANDBAG REMOVED AT THIS TIME.
[2018-06-29] MEDS: DOBUTamine 1000MCG/ML 250 ML IV SCH (16:06)
--- NOTE | 2018-06-29 17:00 | NUR ---
NO BLEEDING, BRUISING, OR HEMATOMA TO RIGHT GROIN AND SOFT TO TOUCH WITH WEAK BUT PALPABLE TO RIGHT DORSALIS PEDIS PULSE. DSG REMAINS INTACT WITH PRESSURE TAPE OVER SAFEGUARD.
--- NOTE | 2018-06-29 17:17 | NUR ---
SPOKE WITH DR Monster BRAVO REGARDING ABG RESULTS. DR AWARE OF WEANING PARAMETERS INCLUDING LEAK TEST OF ONLY 25ML AND NO AUDIBLE LEAK HEARD BY RN OR RT. DR AWARE PATIENT ON SOLUMEDROL [address]. [address] GAVE ORDER FOR BENADRYL 50MG IV Q8H AND FOR RT TO PERFORM LEAK TEST IN AM AND OK FOR CPAP TRIAL IF LEAK TEST IS OVER 100ML. RT AWARE AND COMMUNICATION ORDER PLACED. DR AWARE RT ALREADY PLACED PATIENT BACK ON PREVIOUSLY ORDERED AC MODE SETTING AFTER ABG/WEANING PARAMETERS OBTAINED.
--- NOTE | 2018-06-29 18:00 | NUR ---
NO BLEEDING, BRUISING, OR HEMATOMA TO RIGHT GROIN AND SOFT TO TOUCH WITH WEAK BUT PALPABLE TO RIGHT DORSALIS PEDIS PULSE. DSG REMAINS INTACT WITH PRESSURE TAPE ON.
--- NOTE | 2018-06-29 18:30 | NUR ---
RIGHT IJ CENTRAL LINE DSG CHANGED USING ASEPTIC TECHNIQUE -TOLERATED WELL
--- NOTE | 2018-06-29 18:34 | NUR ---
Respiratory note: RECEIVED PT ON VENT V7 WITH SETTINGS MENTIONED ABOVE, NO CHANGES MADE AT THIS TIME. VENT PLUGGED INTO RED OUTLET, ALARMS ON AND AUDIBLE. AMBU BAG AT BEDSIDE. PT INTUBATED WITH 8.0 ETT SECURED WITH LILLIAM AT 24CM, ETT MOVED TO CENTER POSITION. LIP BREAKDOWN NOTED ON UPPER LIP LEFT SIDE, RN AWARE. BS CLEAR COARSE, SUCTIONED SMALL THIN CLEAR SECRETIONS. GAG REFLEX NOTED. SKIN WARM AND DRY TO TOUCH, NO EDEMA NOTED. PT EYES OPEN, RESPONSIVE TO STIMULI. FAMILY AND RN AT BEDSIDE. MED NEB TX GIVEN IN LINE, TOLERATED WELL. NO ADVERSE REACTIONS NOTED. PT APPEARS COMFORTABLE AT THIS TIME. PT ON BEDSIDE MONITORING. WILL CONTINUE TO MONITOR.
[2018-06-29] MEDS ORDERED: EPOETIN ALFA 10,000 UNIT/1 ML VIAL SC ONE (21:00)
[2018-06-29] MEDS: ATORVASTATIN 20 MG TAB PO SCH (21:58)
[2018-06-29] MEDS: diphenhdrAMINE HCL 50 MG/1 ML VL IV SCH (22:38)
[2018-06-30] VITALS (105 sets, daily range): BP systolic 107–149; BP diastolic 45–77
[2018-06-30] MEDS ORDERED: AMIODARONE HCL 900 MG IV ONE (00:51)
[2018-06-30] MEDS: DOBUTamine 1000MCG/ML 250 ML IV SCH (01:08)
[2018-06-30] MEDS: NICARDIPINE 25MG/250ML BAG KIT 250 ML IV SCH ×3 (01:37→11:37)
--- NOTE | 2018-06-30 03:40 | NUR ---
Respiratory note: ABG RESULTS REPORTED TO JILLIAN ADAMS. PT BECAME TACHYPNEIC DURING ABG DRAW FROM STIMULUS. PT'S TOTAL RR INCREASED TO 27 BPM DURING ABG DRAW. PT'S TOTAL RR IS NOW 21 BPM. PT IS AWAKE, EYES OPEN, AND RESPONSIVE TO VERBAL STIMULI AND TOUCH . STRONG GAG REFLEX NOTED AT THIS TIME DURING SUCTIONING. WILL CONTINUE TO MONITOR.
[2018-06-30] MEDS: InsuLIN REG 1unit/0.01ml Soln (100units/ml) SC SCH ×6 (04:00→20:30)
[2018-06-30] MEDS: ACCU-CHEK COMFORT CURVE STRIP VI SCH ×6 (04:00→20:00)
[2018-06-30 04:18] LABS: Basophils # (auto) 0 uL; Eosinophils # (auto) 0 uL; Hemoglobin 9.5 g/dL (12.2-16.2); Lymphocytes # (auto) 0.3 uL; Monocytes # (auto) 0.9 uL; Monocytes % (auto) 4.5 % (0.0-12.0); Neutrophils # (auto) 19.9 uL; Neutrophils % (auto) 93.9 % (37.0-80.0); Red Blood Cells 3.06 10^6/uL (4.0-5.20); White Blood Cell 21.2 10^3/uL (4.4-10.8)
[2018-06-30 04:22] LABS: Basophils % (auto) 0.2 % (0.0-2.0); Hematocrit 27.8 % (36.0-46.0); Lymphocytes % (auto) 1.4 % (10.0-50.0); Mean Corpuscular Hemoglobin 30.9 pg (28.0-32.0); Mean Corpuscular Hgb Conc. 34.1 g/dL (32.0-36.0); Mean Corpuscular Volume 90.6 fL (80.0-100.0); Nucleated Red Blood Cells % 1.6 %; Red Cell Distribution Width 17.3 % (11.8-14.3)
[2018-06-30 04:44] LABS: Albumin 2.5 g/dL (3.4-5.0); Potassium 3.8 mmol/L (3.5-5.1)
[2018-06-30 04:45] LABS: Platelet Count (auto) 19 10^3/uL (140-450)
[2018-06-30 04:46] LABS: BUN/Creatinine Ratio 14.1
[2018-06-30 05:00] LABS: Bilirubin, Total 0.9 mg/dL (0.2-1.0); Total Protein 5.4 g/dL (6.4-8.2)
[2018-06-30] MEDS: ALBUTEROL SULF 2.5 MG/0.5ML(0.5%) NEB SOLN NEB SCH ×3 (05:38→18:16)
[2018-06-30] MEDS: SODIUM BICARBONATE 650 MG TAB PO SCH ×3 (05:53→22:00)
[2018-06-30] MEDS: CALCIUM ACETATE 667 MG CAP NG SCH ×3 (05:53→22:00)
[2018-06-30] MEDS: diphenhdrAMINE HCL 50 MG/1 ML VL IV SCH ×3 (06:20→22:07)
[2018-06-30] MEDS: methylPREDNISolone SOD SUCC 125 MG/2 ML VL IV SCH ×3 (06:20→22:07)
[2018-06-30] MEDS: hydrALAZINE HCL 25 MG TAB PO SCH ×4 (06:21→22:00)
[2018-06-30] MEDS: PROPOFOL 100 ML IV SCH (07:40)
[2018-06-30] MEDS: NITROGLYCERIN 50MG/250ML 250 ML IV SCH (07:41)
--- NOTE | 2018-06-30 08:13 | NUR ---
LEAK TEST DONE: 184, ALSO AIR LEAK AUSCULTATED IN THROAT.
[2018-06-30] MEDS: INSULIN LANTUS (GLARGINE) 1 /0.01ml (100units/ml) SC SCH ×2 (09:03→22:00)
--- NOTE | 2018-06-30 10:00 | NUR ---
AMIODARONE GTT OFF AT THIS TIME DUE TO RN NOTED PROLONGED QTI ON BEDSIDE EKG AND PATIENT HR 60'S SR
[2018-06-30] MEDS ORDERED: cefTRIAXone 1GM/50ML D5W 50 ML IV ONE (10:40)
[2018-06-30] MEDS: cefTRIAXone 1GM/50ML D5W 50 ML IV SCH (11:00)
[2018-06-30] MEDS: PANTOPRAZOLE 40 MG/10 ML VIAL IV SCH ×2 (11:00→22:07)
[2018-06-30] MEDS: METOPROLOL SUCCINATE XL 50 MG TAB PO SCH (11:01)
[2018-06-30] MEDS: fentaNYL Drip 2500mCg/250mlNS 250 ML IV SCH (11:23)
[2018-06-30] MEDS: NOREPINEPHRINE BITARTRATE 32 MG in D5W 5% 218 ML IV SCH (11:23)
[2018-06-30] MEDS: MIDAZOLAM DRIP 50 mg/50mL 50 ML IV SCH (11:23)
--- NOTE | 2018-06-30 11:33 | NUR ---
PATIENT WAS RESTARTED BACK ON SEDATION (SEE IV SPREADSHEET) DUE TO SIGNS OF RESPIRATORY DISTRESS ON AC MODE. PATIENT NOTED BY RN AND RT TO BE TACHYPNEIC WITH SHALLOW BREATHS. RN/RT DID NOT ATTEMPT CPAP TRIAL DUE TO PATIENT RESP ASSESSMENT AND AM ABG RESULTS, EVEN THOUGH LEAK TEST WAS ABOVE 100. WILL NOTIFY DR BRAVO.
--- NOTE | 2018-06-30 13:47 | NUR ---
PAGED DR Monsetr BRAVO REGARDING REQUEST BY FAMILY TO SPEAK WITH HIM AND TO NOTIFY HIM THAT CPAP TRIAL DID NOT OCCUR PREVIOUSLY NOTED. SON SILVIA AT BEDSIDE AND STATING TO RN THAT THE FAMILY "MIGHT WANT TO JUST KEEP HER COMFORTABLE". HOWEVER THEY WOULD LIKE TO "SPEAK WITH LUNG DOCTOR FIRST".
--- NOTE | 2018-06-30 16:03 | NUR ---
NEW ORDERS RECEIVED PER Monster BRAVO. PT IS NOW ON AC RR 10, VT400, PEEP5, 35% FIO2.
--- NOTE | 2018-06-30 18:35 | NUR ---
DR Monster BRAVO AT BEDSIDE, SPOKE WITH FAMILY INCLUDING TWO SONS REGARDING STATUS. SONS REQUESTED THEIR DECISION TO TERMINALLY WEAN PATIENT TOMORROW AND REQUESTED TO KEEP PATIENT "COMFORTABLE" AFTER THEY DECIDE TO REMOVE BREATHING TUBE. ALL QUESTIONS/CONCERNS ADDRESSED AND SUPPORT PROVIDED TO FAMILY.
--- NOTE | 2018-06-30 20:30 | NUR ---
OPENING NOTE: INTUBATED AND SEDATED. GRIMACING, AND MOVING HEAD. NSR WITH ST DEPRESSION, HR 60s. SBP 120-130s. 8.0 ETT 24 AT THE LIP. EVEN AND UNLABORED BREATHING. SpO2> 95% ON VENT SETTINGS ORDERED. MINIMAL ORAL SECRETIONS. OGT TO LIS, + AIR BOLUS. HYPOACTIVE BS. UNKNOWN LBM. LEFT NEPHROSTOMY TUBE INTACT, DRAINING DARK DRE URINE WITH DARK SEDIMENT. SEE SKIN AND WOUND FLOW SHEET FOR ASSESSMENT. RIGHT IJ CVC, CDI, PATENT AND INTACT WITH BLOOD RETURN. LEFT IJ TRACEY CATH INTACT. NO FAMILY PRESENT. REINFORCED POC. MAINTAINED PATIENT SAFETY: BED LOCKED AND IN THE LOWEST POSITION. WILL CONT CARE. Addendum: 06/30/18 at 2305 by Cora Dow RN RN RIGHT GROIN WITH NO ECCHYMOSIS, HEMATOMA, OR BLEEDING NOTED
[2018-06-30] MEDS: ATORVASTATIN 20 MG TAB PO SCH (22:08)
--- NOTE | 2018-06-30 22:26 | NUR ---
SCHEDULED SODIUM BICARBONATE, PHOSLO AND LANTUS HELD D/T NPO STATUS
[2018-07-01] VITALS (59 sets, daily range): BP systolic 111–165; BP diastolic 47–88
--- NOTE | 2018-07-01 | NUR ---
GRIMACES WITH STIMULI - INCREASED SEDATION
[2018-07-01] MEDS: ALBUTEROL SULF 2.5 MG/0.5ML(0.5%) NEB SOLN NEB SCH ×2 (00:05→05:59)
[2018-07-01] MEDS: InsuLIN REG 1unit/0.01ml Soln (100units/ml) SC SCH ×3 (00:30→08:00)
--- NOTE | 2018-07-01 01:11 | NUR ---
HAIR CARE DONE
[2018-07-01] MEDS: PROPOFOL 100 ML IV SCH (03:15)
[2018-07-01 04:20] LABS: Basophils # (auto) 0 uL; Eosinophils # (auto) 0 uL; Hemoglobin 9.8 g/dL (12.2-16.2); Lymphocytes # (auto) 0.2 uL; Monocytes # (auto) 0.3 uL; Red Cell Distribution Width 17.7 % (11.8-14.3)
[2018-07-01 04:21] LABS: Basophils % (auto) 0.2 % (0.0-2.0); Hematocrit 29.1 % (36.0-46.0); Lymphocytes % (auto) 1.2 % (10.0-50.0); Mean Corpuscular Hemoglobin 31.1 pg (28.0-32.0); Mean Corpuscular Hgb Conc. 33.7 g/dL (32.0-36.0); Mean Corpuscular Volume 92.4 fL (80.0-100.0); Monocytes % (auto) 1.9 % (0.0-12.0); Neutrophils # (auto) 17.4 uL; Neutrophils % (auto) 96.7 % (37.0-80.0); Nucleated Red Blood Cells % 0.7 %; Red Blood Cells 3.15 10^6/uL (4.0-5.20)
[2018-07-01] MEDS: ACCU-CHEK COMFORT CURVE STRIP VI SCH ×3 (04:26→10:31)
[2018-07-01 04:43] LABS: Potassium 4.1 mmol/L (3.5-5.1)
[2018-07-01 04:52] LABS: Albumin 2.4 g/dL (3.4-5.0); BUN/Creatinine Ratio 15.8; Bilirubin, Total 0.8 mg/dL (0.2-1.0); Calcium 6.8 mg/dL (8.5-10.1)
[2018-07-01 05:00] LABS: Platelet Count (auto) 19 10^3/uL (140-450)
--- NOTE | 2018-07-01 05:01 | NUR ---
PARTIAL BED BATH, AND FULL LINEN CHANGE COMPLETED
[2018-07-01] MEDS: diphenhdrAMINE HCL 50 MG/1 ML VL IV SCH ×3 (05:45→21:15)
[2018-07-01] MEDS: hydrALAZINE HCL 25 MG TAB PO SCH (05:46)
[2018-07-01] MEDS: methylPREDNISolone SOD SUCC 125 MG/2 ML VL IV SCH (05:46)
[2018-07-01] MEDS: SODIUM BICARBONATE 650 MG TAB PO SCH (05:46)
[2018-07-01] MEDS: CALCIUM ACETATE 667 MG CAP NG SCH (05:46)
--- NOTE | 2018-07-01 06:36 | NUR ---
CLOSING NOTE: REMAINS INTUBATED AND SEDATED. VSS. EVEN AND UNLABORED BREATHING. SpO2>95% ON CURRENT VENT SETTINGS. SEE FLOWSHEETS FOR FURTHER ASSESSMENT. WILL CONT CARE
--- NOTE | 2018-07-01 07:15 | NUR ---
CARE AND REPORT ENDORSED TO JILLIAN REILLY
[2018-07-01] MEDS: fentaNYL Drip 2500mCg/250mlNS 250 ML IV SCH (09:04)
[2018-07-01] MEDS: cefTRIAXone 1GM/50ML D5W 50 ML IV SCH (10:07)
[2018-07-01] MEDS: PANTOPRAZOLE 40 MG/10 ML VIAL IV SCH (10:07)
[2018-07-01] MEDS: METOPROLOL SUCCINATE XL 50 MG TAB PO SCH (10:09)
--- NOTE | 2018-07-01 10:45 | NUR ---
HOSPITALIST/FAMILY AT BEDSIDE FAMILY REQUESTING PATIENT TO BE TERMINALLY WEANED, DR MUHAMMAD NOTIFIED AND DISCUSSED PLAN OF CARE WITH PATIENT'S SON SILVIA. SILVIA VERBALIZED UNDERSTANDING AND WILL NOTIFY THIS RN ONCE READY TO WEAN. R.T. NOTIFIED.
[2018-07-01] MEDS ORDERED: ALBUTEROL SULF 2.5 MG/0.5ML(0.5%) NEB SOLN NEB PRN (11:00)
[2018-07-01] MEDS ORDERED: LORazepam 2MG/ML-1ML VIAL IV PRN (11:45)
[2018-07-01] MEDS: HYDROmorphone HCL 2 MG/ML VL IV PRN ×3 (11:50→17:43)
--- NOTE | 2018-07-01 11:54 | NUR ---
TERMINALLY WEANED PER FAMILY REQUEST, PATIENT MEDICATED ORDERED BY PHYSICIAN. MULTIPLE FAMILY MEMBERS AT BEDSIDE. WILL MONITOR.
--- NOTE | 2018-07-01 11:54 | NUR ---
TERMINAL EXTUBATION DONE, PER DR MUHAMMAD AND FAMILY'S REQUEST. FAMILY AT BEDSIDE.
--- NOTE | 2018-07-01 12:00 | NUR ---
WOUND CARE NOTE: UNABLE TO ASSESS PATIENT'S SKIN AT THIS TIME, PATIENT HAS RECENTLY BEEN TERMINALLY WEANED. FAMILY IS AT BEDSIDE. PATIENT HAS NEW SKIN TEAR/BLISTER TO THE RIGHT GROIN. BEDSIDE NURSE HAS PHOTOGRAPHED WOUND. PATIENT SHOULD HAVE DRESSING CHANGE TO THIS WOUND Q 3 DAYS/PRN. UPDATED SKIN/WOUND CARE PLAN. WOUND CARE TEAM WILL CONTINUE TO MONITOR.
--- NOTE | 2018-07-01 13:11 | NUR ---
REPORT CALLED IN TO RECEIVING RN NED. NO TRANSFER ORDERS ENTERED, GIULIA, CHARGE NURSE AWARE AND STATED SHE WOULD PLACE ORDERS.
--- NOTE | 2018-07-01 13:13 | NUR ---
Rcvd report from Sheryl WALSH
--- NOTE | 2018-07-01 14:20 | NUR ---
Rcvd patient in bed 284b, patient is not alert, she is on room air. Family at bedside.
--- NOTE | 2018-07-01 14:23 | NUR ---
Abena hernandez for family
--- NOTE | 2018-07-01 14:30 | NUR ---
ICU patient trans to floor while this nurse was at lunch. Char, charge nurse covering at the time of transfer.
--- NOTE | 2018-07-01 14:40 | NUR ---
Gave family mouth care supplies as well as lip balm per their request.
--- NOTE | 2018-07-01 15:40 | NUR ---
Process Plant Operator at bedside with family
--- NOTE | 2018-07-01 16:10 | NUR ---
Patient appears to be uncomfortable, family at bedside. Meds to be given.
--- NOTE | 2018-07-01 18:52 | NUR ---
End of shift note Patient is resting comfortably with no s/s of distress. She is on room air. Family is at bedside.
--- NOTE | 2018-07-01 19:40 | NUR ---
Assumed care of patient. Patient resting in bed w/eyes closed. Family at bedside. No response to sternal rub. Respirations even deep at 14 breaths per minute and SPO2 at 77% on room air. Telemetry reading is normal sinus rhythm and HR is 80 bpm. Will continue to monitor.
[2018-07-02] MEDS: HYDROmorphone HCL 2 MG/ML VL IV PRN ×4 (00:42→19:04)
--- NOTE | 2018-07-02 00:42 | NUR ---
ADMINISTERED DILAUDID PER ORDER. PATIENT IN BED W/FAMILY PRESENT. OPENED EYES TO LOUD SPEAKING. BUT NOT TO STERNAL RUB. ASKED IF SHE WAS EXPERIENCING PAIN. PATIENT NODDED, YES. ADMINISTERED DILAUDID PER ORDER. WILL CONTINUE TO MONITOR.
[2018-07-02 05:00] VITALS: BP 106/65
[2018-07-02] MEDS: diphenhdrAMINE HCL 50 MG/1 ML VL IV SCH (06:00)
--- NOTE | 2018-07-02 07:03 | NUR ---
RESPIRATORY REQUESTED D/C OF PRN BREATHING TREATMENTS. D/C'D PER PROTOCOL.
--- NOTE | 2018-07-02 07:30 | NUR ---
Opening Shift Note Assumed care of patient. Patient is resting comfortably with no s/s of distress. She is on room air. Family is at bedside.
--- NOTE | 2018-07-02 07:47 | NUR ---
PATIENT RESTING IN BED W/FAMILY AT BEDSIDE. LAST BP 120'S OVER 70'S. SPO2 77%. RESPIRATIONS 12, DEEP AND EVEN. LAST PAIN MED GIVEN AT ABOUT 0500. PATIENT APPEARED UNCOMFORTABLE W/FACIAL GRIMACING. ENDORSED CARE TO MELBA HARVEY RN.
[2018-07-02 08:30] VITALS: BP 120/69
--- NOTE | 2018-07-02 11:43 | NUR ---
NGT removal NGT removed per MD/VICE PRESIDENT OF PRODUCT MARKETING order following explaination and instruction to patient. Patient verbalized understanding prior to removal. Patient tolerated well. Addendum: 07/02/18 at 1148 by MELBA MCGREGOR RN Wrong note
[2018-07-02 12:30] VITALS: BP 140/81
--- NOTE | 2018-07-02 15:01 | NUR ---
Nutrition Follow-up Notes Wt.: 61.5 kg as of yesteday. Pt's terminally extubated yesterday, currently NPO, off from EN support, with DNR status and for comfort measures only. Est. Needs reassessed based on CBWt.(54 kg): 8711-6772 kcal (25-30 kcal/kgBW), 65-86 gms pro (1.2-1.6 gms/kgBW r/t ESRD on HD, severe hypoalbuminemia). Will continue to monitor pertinent labs and reassess nutrient needs prn. Labs: No new labs today, 07/01/18 Na 134 L, BUN 58 H, Cr 3.67 H, ALT 188 H, ALP 141 H, Tpro 5.0 L, Alb 2.4 L Skin: Didier scale 11, high risk, pt's medial sacrum pressure ulcer, coccyx DTI per fixture repairer fabricator. Pls refer to federal mediator's notes (06/24/18) for further details re: tx plans. GI: Pt had 1 BM 06/26/18 per fixture repairer fabricator. PES: Altered nutrition related lab values r/t current/chronic medical condition aeb elev RFT, mild hypoalb, hyperglycemia, hypocalcemia Partially resolved: Increased nutrient needs r/t acute/chronic medical condition aeb ESRD on HD, severe hypoalbuminemia, intubated, sedated, NPO. Will continue to monitor NPO status, skin status, pertinent labs and weight trend. F/u in 2 to 3 days. Rec.: 1.) If still NPO, consider to resume EN support at lower rate with gradual increase on feeding rate of Nepro Carb Steady to 35 ml/hr as tolerated, if medially appropriate. 2.) Consider daily Nephrovite and Asc acid 500 mgs BID prn. 3.) Resume gradually to oral diet when medically appropriate. 4.) Refer pt to CDE/RD for further nutrition education and weight monitoring upon discharge. 5.) Continue current plan of care.
[2018-07-02 16:25] VITALS: BP 107/63
--- NOTE | 2018-07-02 21:06 | NUR ---
PATIENT FAMILY PRESENT. PRONOUNCED AT 194 BY PRINCESS BIRMINGHAM NP. [facility] CALLED. AWAITING CALL BACK FROM [facility].
--- NOTE | 2018-07-03 01:58 | NUR ---
TRANSPORTER FROM [facility] DEPARTED WITH PATIENT REMAINS AT 0125.
== END 2018-07-02 19:45 | disposition expired | DRG 190 ==
LOC: ER 01:31 → MERGE 06:20 → EDBD 06:20 → TELE 06:20 → TELE-WESTW 14:31 → ICU WEST 06-16 20:17 → TELE-WESTW 07-01 14:15
PROVIDERS: ADMIT Nurse Practitioner Family; ATTEND Internal Medicine
PROC: 0T9130Z Drainage of Left Kidney with Drainage Device, Percutaneous Approach (ICD-10-PCS; 2018-06-14)
PROC: BT1F1ZZ Fluoroscopy of Left Kidney, Ureter and Bladder using Low Osmolar Contrast (ICD-10-PCS; 2018-06-14)
PROC: 5A09357 Assistance with Respiratory Ventilation, Less than 24 Consecutive Hours, Continuous Positive Airway Pressure (ICD-10-PCS; 2018-06-16)
PROC: 30233N1 Transfusion of Nonautologous Red Blood Cells into Peripheral Vein, Percutaneous Approach (ICD-10-PCS; 2018-06-16)
PROC: 30233R1 Transfusion of Nonautologous Platelets into Peripheral Vein, Percutaneous Approach (ICD-10-PCS; 2018-06-16)
PROC: 0CJS8ZZ Inspection of Larynx, Via Natural or Artificial Opening Endoscopic (ICD-10-PCS; 2018-06-16)
PROC: 0BH17EZ Insertion of Endotracheal Airway into Trachea, Via Natural or Artificial Opening (ICD-10-PCS; 2018-06-17)
PROC: 02HV33Z Insertion of Infusion Device into Superior Vena Cava, Percutaneous Approach (ICD-10-PCS; 2018-06-17)
PROC: 5A1945Z Respiratory Ventilation, 24-96 Consecutive Hours (ICD-10-PCS; 2018-06-17)
PROC: 5A1955Z Respiratory Ventilation, Greater than 96 Consecutive Hours (ICD-10-PCS; 2018-06-21)
PROC: 0BH17EZ Insertion of Endotracheal Airway into Trachea, Via Natural or Artificial Opening (ICD-10-PCS; 2018-06-21)
PROC: 5A09357 Assistance with Respiratory Ventilation, Less than 24 Consecutive Hours, Continuous Positive Airway Pressure (ICD-10-PCS; 2018-06-21)
PROC: 5A02210 Assistance with Cardiac Output using Balloon Pump, Continuous (ICD-10-PCS; principal; 2018-06-25)
PROC: 4A023N8 Measurement of Cardiac Sampling and Pressure, Bilateral, Percutaneous Approach (ICD-10-PCS; 2018-06-25)
PROC: B2111ZZ Fluoroscopy of Multiple Coronary Arteries using Low Osmolar Contrast (ICD-10-PCS; 2018-06-25)
PROC: B2151ZZ Fluoroscopy of Left Heart using Low Osmolar Contrast (ICD-10-PCS; 2018-06-25)
PROC: 5A1935Z Respiratory Ventilation, Less than 24 Consecutive Hours (ICD-10-PCS; 2018-07-01)
PROC: 0BH17EZ Insertion of Endotracheal Airway into Trachea, Via Natural or Artificial Opening (ICD-10-PCS; 2018-07-01)
PROC: 5A12012 Performance of Cardiac Output, Single, Manual (ICD-10-PCS; 2018-07-02)
DX: I21.4 Non-ST elevation (NSTEMI) myocardial infarction (principal); N17.0 Acute kidney failure with tubular necrosis; J96.01 Acute respiratory failure with hypoxia; K72.00 Acute and subacute hepatic failure without coma; R57.9 Shock, unspecified; J18.9 Pneumonia, unspecified organism; D61.818 Other pancytopenia; I13.0 Hypertensive heart and chronic kidney disease with heart failure and stage 1 through stage 4 chronic kidney disease, or unspecified chronic kidney disease; I50.43 Acute on chronic combined systolic (congestive) and diastolic (congestive) heart failure; E11.10 Type 2 diabetes mellitus with ketoacidosis without coma; N18.6 End stage renal disease; E87.1 Hypo-osmolality and hyponatremia; I13.2 Hypertensive heart and chronic kidney disease with heart failure and with stage 5 chronic kidney disease, or end stage renal disease; E44.0 Moderate protein-calorie malnutrition; N13.2 Hydronephrosis with renal and ureteral calculous obstruction; D75.82 Heparin induced thrombocytopenia (HIT); I46.9 Cardiac arrest, cause unspecified; E11.65 Type 2 diabetes mellitus with hyperglycemia; E11.22 Type 2 diabetes mellitus with diabetic chronic kidney disease; D63.1 Anemia in chronic kidney disease; D50.0 Iron deficiency anemia secondary to blood loss (chronic); E03.9 Hypothyroidism, unspecified; E78.5 Hyperlipidemia, unspecified; E83.51 Hypocalcemia; Z95.5 Presence of coronary angioplasty implant and graft; E83.39 Other disorders of phosphorus metabolism; N27.0 Small kidney, unilateral; I95.9 Hypotension, unspecified; Z99.2 Dependence on renal dialysis; Z93.6 Other artificial openings of urinary tract status
CPT/HCPCS: 33967; 36415; 36600; 71045; 74176; 74425; 76700; 76775; 76942; 78452; 80048; 80053; 80061; 80074; 81001; 82306; 82570; 82728; 82805; 82962; 83010; 83036; 83540; 83550; 83605; 83615; 83735; 83880; 83935; 83970; 84100; 84156; 84300; 84439; 84443; 84480; 84484; 85007; 85014; 85018; 85025; 85027; 85045; 85610; 85652; 85730; 86141; 86850; 86880; 86885; 86900; 86901; 86920; 87040; 87070; 87081; 87205; 90935; 93005; 93017; 93306; 93460; 93970; 94002; 94003; 94640; 94660; 96374; 97110; 97163; A4618; A6257; C1729; C1751; C9113; G0378; J0153; J0330; J0461; J0696; J0885; J1642; J1815; J2001; J2250; J2405; J2704; J7060; P9047